=== PATIENT | female | born 1965 | race Caucasian/White ===

== ENCOUNTER → 2017-02-13 | Outpatient (CLI) | payer OTHER ==
[~2017-02-13] MED LIST: ACHD5005 PO; AMIT150T3 PO; ASP81TEC PO; ASPI325T4 PO; ATEN25TA PO; AZIT-21 PO; BESI5DRO OP; BSP5T PO; CEPH500C PO; CPR500T PO; CYCL10TA9 PO; DIAZ10TA PO; FENO145T2 PO; FENO160T3; HCTZ12.5T PO; HYDR-3812 PO; IBUP-1773 PO; MELO-198 PO; METF500T4 PO; MTF500T PO; NAPR-243 PO; NCT14P TOP; NCT21TD TOP; NIA500ERT PO; OMEP-10 GT; OTC DIURETIC PO; PRCD5U PO; PRD20T PO; SULF1TAB38 PO; TOPI100T2 PO; TRM50T PO
--- NOTE | 2017-02-13 16:34 | Diagnostic Imaging Report ---
PROCEDURE: MRI right joint lower extremity without contrast. TECHNIQUE: Multiplanar, multisequence non contrast-enhanced MRI of the right lower extremity was accomplished. INDICATION: Right hip pain. FINDINGS: In the anteromedial aspect of the acetabulum, there are subchondral cysts seen which could be degenerative or perhaps post-traumatic intraosseous ganglion cysts. There is no osteochondral lesion identified. No focal cartilage defects or significant cartilage thinning identified, however. There is no significant bone marrow edema or evidence of fracture about the right hip. No stress fracture. No evidence of avascular necrosis. No obvious labrum abnormality is seen on this study without intra-articular contrast. There is a normal appearance of the iliopsoas tendon, the gluteus muscles and tendons, and the origin of the hamstring muscles. No iliopsoas or greater trochanteric bursitis. The signal and bulk in the muscles around the right hip are normal. IMPRESSION: Subchondral cysts along the anteromedial aspect of the acetabulum are probably degenerative or from old injury. No significant cartilage thinning or other manifestations of osteoarthritis. No acute process. Dictated by: Dictated on workstation # [id number]
== END ==
LOC: RAD 14:57
PROVIDERS: ATTEND Orthopaedic Surgery Orthopaedic Surgery of the Spine
DX: M25.551 Pain in right hip (principal)
CPT/HCPCS: 73721

== ENCOUNTER 2017-03-17 08:49 | Emergency (ER) | payer OTHER ==
[~2017-03-17] VITALS: Ht 149.9 cm; Wt 89.8 kg
[~2017-03-17 08:49] MED LIST changes: -HYDR-3812 PO; -METF500T4 PO; -PRD20T PO
[2017-03-17] MEDS ORDERED: METF500T4 PO (09:04)
--- NOTE | 2017-03-17 09:21 | ED Back Pain ---
General Chief Complaint: Back Problems Stated Complaint: BACK PAIN RIGHT LEG BURNING/TOES NUMB Nursing Triage Note: PT CO OF BACK PAIN, STATES HAS SICATICA IN R LOWER BACK AND R LEG, PT STATES HAS NUMBNESS IN TOES BILATERALLY. DIFF KEEPING BALANCE, SCHEDULED FOR INJECTION ON MONDAY BUT CANT WORK THIS WAY Nursing Sepsis Screen: No Definite Risk Source of Information: Patient Exam Limitations: No Limitations History of Present Illness Time Seen by Provider: 09:01 Initial Comments Here with report of right low back pain that radiates down her right leg. She does have a history of sciatica. She is scheduled to get injection next week. She is having difficulty with pain and she is walking a lot at work which is exacerbating the problem. Denies numbness between her legs, bowel or bladder incontinence or weakness. Seen yesterday and started on ibuprofen at outside facility. Location: Lumbar Spine Timing/Duration: 1-2 Days Severity: Moderate Radiation: Buttocks, Feet, Lower Legs, Upper Legs Method of Injury: Unknown Modifying Factors: Worse With Movement, Improves With Rest Associated Symptoms: muscle spasms, No weakness, No numbness in legs/feet, tingling in legs/feet, No sensory/motor loss, lower back pain, No loss of bladder control, No loss of bowel control Allergies and Home Medications Allergies Coded Allergies: niacin (Verified Allergy, Mild, rash, 03/17/17) Home Medications Cyclobenzaprine HCl 10 Mg Tablet, 10 MG PO Q8H PRN for SPASMS, #15 Ref 0 Prescribed by: BRISEIDA ELLIOTT on 03/17/17941 Hydrochlorothiazide 12.5 Mg Cap, 25 MG PO, (Reported) Hydrocodone/Acetaminophen 1 Each Tablet, 1-2 EACH PO Q6H PRN for pain, #15 Ref 0 Prescribed by: BRISEIDA ELLIOTT on 03/17/17941 Metformin HCl 500 Mg Tablet, 500 MG PO BID, (Reported) Omeprazole 20 Mg Capsule.dr, 20 MG GT DAILY, (Reported) Prednisone 20 Mg Tab, 40 MG PO DAILY, #10 Ref 0 Prescribed by: BRISEIDA ELLIOTT on 03/17/17941 Constitutional: see HPI, No chills, No fever Respiratory: no symptoms reported Cardiovascular: no symptoms reported Gastrointestinal: no symptoms reported Genitourinary: no symptoms reported Musculoskeletal: see HPI, back pain, muscle pain All Other Systems Reviewed Negative Unless Noted: Yes Past Wpyblhs-Dxavok-Crzqof Hx Patient Social History Alcohol Use: Denies Use Recreational Drug Use: No Smoking Status: Former Smoker Type Used: Electronic/Vapor Recent Foreign Travel: No Contact w/Someone Who Travel: No Recent Infectious Disease Expo: No Recent Hopitalizations: No Immunizations Up To Date Tetanus Booster (TDap): Unknown Date of Influenza Vaccine: Dec 28, 2012 Surgeries HX Surgeries: Yes (CARPAL TUNNEL) Surgeries: Section, Hysterectomy Respiratory Hx Respiratory Disorders: Yes Respiratory Disorders: Pneumonia Cardiovascular Hx Cardiac Disorders: Yes Neurological Hx Neurological Disorders: No Reproductive System Hx Reproductive Disorders: No 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: 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 Genitourinary Hx Genitourinary Disorders: No Gastrointestinal Hx Gastrointestinal Disorders: No Musculoskeletal Hx Musculoskeletal Disorders: Yes Musculoskeletal Disorders: Degenerate Disk Disease, Arthritis, Fibromyalgia, Chronic Back Pain Endocrine Hx Endocrine Disorders: No HEENT HX ENT Disorders: No Cancer Hx Cancer: No Psychosocial Hx Psychiatric Problems: Yes Behavioral Health Disorders: Anxiety Blood Transfusions Hx Blood Disorders: No Reviewed Nursing Assessment Reviewed/Agree w Nursing PMH: Yes Family Medical History Significant Family History: No Pertinent Family Hx Physical Exam Vital Signs Vital Sign - Last 12Hours 03/17/17 08:55 Temp 97.0 Pulse 68 Resp 20 B/P (MAP) 140/96 Pulse Ox 98 O2 Delivery Room Air Capillary Refill : Less Than 3 Seconds General Appearance: No Apparent Distress, WD/WN Cardiovascular: Regular Rate, Rhythm, No Murmur Respiratory: Lungs Clear, Normal Breath Sounds Back: No CVA Tenderness, No Vertebral Tenderness, Muscle Spasm, Other (right low back tenderness that radiates over the buttock) Extremity: Normal Range of Motion, Non Tender Neurologic/Psychiatric: Alert, Oriented x3 Skin: Normal Color, Warm/Dry Progress/Results/Core Measures Results/Orders Lab Results Laboratory Tests Test 03/17/17 09:20 Range/Units Glucometer 101 70-110 MG/DL My Orders Orders - BRISEIDA ELLIOTT MD Accucheck Stat ONCE (03/17/17 09:15) Vital Signs/I&O Vital Sign - Last 12Hours 03/17/17 08:55 Temp 97.0 Pulse 68 Resp 20 B/P (MAP) 140/96 Pulse Ox 98 O2 Delivery Room Air Blood Pressure Mean: 111 Progress Note : Progress Note Seen and evaluated. Discharged home with return precautions. Patient verbalize understanding instructions and agreement with plan. Departure Impression Impression: Primary Impression: Lumbar radiculopathy Disposition: 01 HOME, SELF-CARE Condition: Improved Departure-Patient Inst. Decision time for Depature: 09:26 Referrals: JAMAL HENDRICKSON DO (PCP/Family) Primary Care Physician Patient Instructions: Radiculopathy (DC) Add. Discharge Instructions: All discharge instructions reviewed with patient and/or family. Voiced understanding. Continue home medications as prescribed. Follow-up with your doctor next week as scheduled. Take medications as directed. Return for worse pain, fever, vomiting, weakness, breathing problems or other concerns as needed. Scripts Prednisone (Prednisone) 20 Mg Tab 40 MG PO DAILY, #10 TAB 0 Refills Prov: BRISEIDA ELLIOTT MD 03/17/17 Hydrocodone/Acetaminophen (Hydrocodon -Acetaminophen 5-325) 1 Each Tablet 1-2 EACH PO Q6H Y for pain, #15 TAB 0 Refills Prov: BRISEIDA ELLIOTT MD 03/17/17 Cyclobenzaprine HCl (Cyclobenzaprine HCl) 10 Mg Tablet 10 MG PO Q8H Y for SPASMS, #15 TAB 0 Refills Prov: BRISEIDA ELLIOTT MD 03/17/17 Work/School Note: Work Release Form Date Seen in the Emergency Department: Mar 17, 2017 Return to Work: Mar 20, 2017 Restrictions: No Restrictions BRISEIDA ELLIOTT MD Mar 17, 2017 09:21
[2017-03-17] MEDS ORDERED: HYDR-3812 PO (09:42)
[2017-03-17] MEDS ORDERED: CYCL10TA9 PO (09:42)
[2017-03-17] MEDS ORDERED: PRD20T PO (09:42)
[2017-03-17 09:49] VITALS: BP 140/96
== END 2017-03-17 09:49 | disposition home or self-care (01) ==
LOC: EDUNIT# 08:49 → ER 08:52
DX: M54.16 Radiculopathy, lumbar region (principal); E11.9 Type 2 diabetes mellitus without complications; Z79.84 Long term (current) use of oral hypoglycemic drugs
CPT/HCPCS: 82962; 99282

== ENCOUNTER 2017-04-19 15:44 | Emergency (ER) | payer OTHER ==
[~2017-04-19] VITALS: Ht 152.4 cm; Wt 90.9 kg
[~2017-04-19 15:44] MED LIST changes: +HYDR-3812 PO; +METF500T4 PO; +PRD20T PO
[2017-04-19] MEDS ORDERED: CINN500C2 PO (15:54)
[2017-04-19] MEDS ORDERED: ASCO500C15 PO (15:54)
[2017-04-19] MEDS ORDERED: ASPI-808 PO (15:54)
[2017-04-19 16:15] LABS: BASOPHILS # (AUTO) 0.1 10^3/uL (0.0-0.1); BASOPHILS % (AUTO) 0 % (0-10); EOSINOPHILS # (AUTO) 0.1 10^3/uL (0.0-0.3); EOSINOPHILS % (AUTO) 1 % (0-10); LYMPHOCYTES # (AUTO) 3.2 X 10^3 (1.0-4.0); LYMPHOCYTES % (AUTO) 23 % (12-44); MEAN CORPUSCULAR HEMOGLOBIN 26 PG (25-34); MEAN CORPUSCULAR HGB CONC 32 G/DL (32-36); MEAN CORPUSCULAR VOLUME 79 FL (80-99); MEAN PLATELET VOLUME 10.4 FL (7.4-10.4); MONOCYTES % (AUTO) 7 % (0-12); NEUTROPHILS # (AUTO) 9.5 X 10^3 (1.8-7.8); NEUTROPHILS % (AUTO) 69 % (42-75); PLATELET COUNT 312 10^3/uL (130-400); RED BLOOD COUNT 6.12 10^6/uL (4.35-5.85); RED CELL DISTRIBUTION WIDTH 17.2 % (10.0-14.5); WHITE BLOOD COUNT 13.8 10^3/uL (4.3-11.0)
[2017-04-19 16:19] LABS: PROTHROMBIN TIME PATIENT 13.3 SEC (12.2-14.7)
[2017-04-19 16:26] LABS: ALANINE AMINOTRANSFERASE 21 U/L (0-55); ALBUMIN 3.2 G/DL (3.2-4.5); ANION GAP 8 MMOL/L (5-14); ASPARTATE AMINO TRANSFERASE 15 U/L (5-34); BILIRUBIN,TOTAL 0.3 MG/DL (0.1-1.0); BLOOD UREA NITROGEN 20 MG/DL (7-18); BUN/CREATININE RATIO 25; CALCIUM 9.2 MG/DL (8.5-10.1); CARBON DIOXIDE 26 MMOL/L (21-32); CHLORIDE 108 MMOL/L (98-107); CREATININE SERUM 0.79 MG/DL (0.60-1.30); GFR ESTIMATED > 60; GLUCOSE 160 MG/DL (70-105); MAGNESIUM 1.7 MG/DL (1.8-2.4); POTASSIUM 3.7 MMOL/L (3.6-5.0); SODIUM 142 MMOL/L (135-145); TOTAL PROTEIN 5.3 G/DL (6.4-8.2)
--- NOTE | 2017-04-19 16:28 | Diagnostic Imaging Report ---
INDICATION: Chest tightness and dizziness. EXAMINATION: Single frontal view of the chest was obtained at 4:13 p.m. FINDINGS: Heart and mediastinal silhouette are normal in appearance. The lungs are clear. There is no pneumothorax or pleural fluid. IMPRESSION: Negative chest. Dictated by: Dictated on workstation # [id number]
[2017-04-19 16:32] LABS: MYOGLOBIN SERUM 31.4 NG/ML (10.0-92.0)
--- NOTE | 2017-04-19 16:48 | ED Chest Pain ---
General Chief Complaint: Chest Pain Stated Complaint: CHEST PAIN,SOB Nursing Triage Note: patient reports chest tightness starting this morning after donating plasma, patient reports is also dizzy. denies SOA, N/V Nursing Sepsis Screen: No Definite Risk Source: patient Exam Limitations: no limitations History of Present Illness Time seen by provider: 16:40 Initial Comments Here with report of chest tightness that started about noon today. Onset after donating plasma today. Complains of tightness but denies nausea, vomiting, fever or chills. She has had cardiac workup in the past that was negative. She does report being under life stress. She does take a baby aspirin daily. Timing/Duration: 4-6 hours Severity/Quality: moderate, tightness Location: central Radiation: no radiation Prior CP/Workup: cardiac cath, echocardiography, stress test ASA po BENEFITS DIRECTOR: Yes NTG SL BENEFITS DIRECTOR: No Associated Symptoms: No abdominal pain, No back pain, No diaphoresis, No nausea /vomiting, No shortness of breath, No weakness Allergies and Home Medications Allergies Coded Allergies: niacin (Verified Allergy, Mild, rash, 03/17/17) Home Medications Ascorbic Acid 500 Mg Capsule.er, 500 MG PO, (Reported) Aspirin 325 Mg Tablet, 325 MG PO, (Reported) Cinnamon Bark 500 Mg Capsule, 500 MG PO, (Reported) Cyclobenzaprine HCl 10 Mg Tablet, 10 MG PO Q8H PRN for SPASMS, #15 Ref 0 Prescribed by: BRISEIDA ELLIOTT on 03/17/17941 Hydrochlorothiazide 12.5 Mg Cap, 25 MG PO, (Reported) Hydrocodone/Acetaminophen 1 Each Tablet, 1-2 EACH PO Q6H PRN for pain, #15 Ref 0 Prescribed by: BRISEIDA ELLIOTT on 03/17/17941 Metformin HCl 500 Mg Tablet, 500 MG PO BID, (Reported) Omeprazole 20 Mg Capsule.dr, 20 MG GT DAILY, (Reported) Prednisone 20 Mg Tab, 40 MG PO DAILY, #10 Ref 0 Prescribed by: BRISEIDA ELLIOTT on 03/17/17941 Review of Systems Constitutional: see HPI, No chills, No fever EENTM: No Symptoms Reported Respiratory: No Symptoms Reported, Denies Shortness of Air, Denies SOA at Rest Cardiovascular: Chest Pain, Denies Edema, Denies Lightheadedness Gastrointestinal: No Symptoms Reported, Denies Nausea, Denies Vomiting Genitourinary: No Symptoms Reported Musculoskeletal: no symptoms reported All Other Systems Reviewed Negative Unless Noted: Yes Past Rzwxjix-Jvgtei-Rdudtt Hx Patient Social History Alcohol Use: Denies Use Recreational Drug Use: No Smoking Status: Current Everyday Smoker Type Used: Cigarettes Recent Foreign Travel: No Contact w/Someone Who Travel: No Recent Infectious Disease Expo: No Recent Hopitalizations: No Immunizations Up To Date Tetanus Booster (TDap): Unknown Date of Influenza Vaccine: Dec 28, 2012 Surgeries HX Surgeries: Yes (CARPAL TUNNEL) Surgeries: Section, Hysterectomy, Orthopedic Respiratory Hx Respiratory Disorders: Yes Respiratory Disorders: Pneumonia Cardiovascular Hx Cardiac Disorders: Yes Cardiac Disorders: High Cholesterol Neurological Hx Neurological Disorders: No Reproductive System Hx Reproductive Disorders: No 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 Genitourinary Hx Genitourinary Disorders: No Gastrointestinal Hx Gastrointestinal Disorders: No Musculoskeletal Hx Musculoskeletal Disorders: Yes Musculoskeletal Disorders: Degenerate Disk Disease, Arthritis, Fibromyalgia, Chronic Back Pain Endocrine Hx Endocrine Disorders: No HEENT HX ENT Disorders: No Cancer Hx Cancer: No Psychosocial Hx Psychiatric Problems: Yes Behavioral Health Disorders: Anxiety Blood Transfusions Hx Blood Disorders: No Reviewed Nursing Assessment Reviewed/Agree w Nursing PMH: Yes Family Medical History Significant Family History: No Pertinent Family Hx Physical Exam Vital Signs Vital Sign - Last 12Hours Capillary Refill : Less Than 3 Seconds General Appearance: No Apparent Distress, WD/WN HEENT: PERRL/EOMI, Pharynx Normal Neck: Non Tender, Supple Respiratory: Lungs Clear, Normal Breath Sounds, Other (tender along the anterior chest wall reproducible with palpation.) Cardiovascular: Regular Rate, Rhythm, No Murmur Gastrointestinal: Non Tender, Soft Extremity: Normal Range of Motion, Non Tender Neurologic/Psychiatric: Alert, Oriented x3 Skin: Normal Color, Warm/Dry Progress/Results/Core Measures Results/Orders Lab Results Laboratory Tests Test 04/19/ 16:00 Range/Units White Blood Count 13.8 H 4.3-11.0 10^3/uL Red Blood Count 6.12 H 4.35-5.85 10^6/uL Hemoglobin 15.6 11.5-16.0 G/DL Hematocrit 48 35-52 % Mean Corpuscular Volume 79 L 80-99 FL Mean Corpuscular Hemoglobin 26 25-34 PG Mean Corpuscular Hemoglobin Concent 32 32-36 G/DL Red Cell Distribution Width 17.2 H 10.0-14.5 % Platelet Count 312 130-400 10^3/uL Mean Platelet Volume 10.4 7.4-10.4 FL Neutrophils (%) (Auto) 69 42-75 % Lymphocytes (%) (Auto) 23 12-44 % Monocytes (%) (Auto) 7 0-12 % Eosinophils (%) (Auto) 1 0-10 % Basophils (%) (Auto) 0 0-10 % Neutrophils # (Auto) 9.5 H 1.8-7.8 X 10^3 Lymphocytes # (Auto) 3.2 1.0-4.0 X 10^3 Monocytes # (Auto) 1.0 0.0-1.0 X 10^3 Eosinophils # (Auto) 0.1 0.0-0.3 10^3/uL Basophils # (Auto) 0.1 0.0-0.1 10^3/uL Prothrombin Time 13.3 12.2-14.7 SEC INR Comment 1.0 0.8-1.4 Activated Partial Thromboplast Time 25 24-35 SEC D-Dimer < 0.27 0.00-0.49 UG/ML Sodium Level 142 135-145 MMOL/L Potassium Level 3.7 3.6-5.0 MMOL/L Chloride Level 108 H 98-107 MMOL/L Carbon Dioxide Level 26 21-32 MMOL/L Anion Gap 8 5-14 MMOL/L Blood Urea Nitrogen 20 H 7-18 MG/DL Creatinine 0.79 0.60-1.30 MG/DL Estimat Glomerular Filtration Rate > 60 BUN/Creatinine Ratio 25 Glucose Level 160 H 70-105 MG/DL Calcium Level 9.2 8.5-10.1 MG/DL Magnesium Level 1.7 L 1.8-2.4 MG/DL Total Bilirubin 0.3 0.1-1.0 MG/DL Aspartate Amino Transf (AST/SGOT) 15 5-34 U/L Alanine Aminotransferase (ALT/SGPT) 21 0-55 U/L Alkaline Phosphatase 67 40-136 U/L Myoglobin 31.4 10.0-92.0 NG/ML Troponin I < 0.30 <0.30 NG/ML Total Protein 5.3 L 6.4-8.2 G/DL Albumin 3.2 3.2-4.5 G/DL My Orders Orders - [facility],BRISEIDA D MD Cbc With Automated Diff (04/19/17 16:01) Magnesium (04/19/17 16:01) Chest 1 View, Ap/Pa Only (04/19/17 16:01) Ekg Tracing (04/19/17 16:01) Cardiac Profile 1 (04/19/17 16:01) Comprehensive Metabolic Panel (04/19/17 16:01) Myoglobin Serum (04/19/17 16:01) Protime With Inr (04/19/17 16:01) Partial Thromboplastin Time (04/19/17 16:01) O2 (04/19/17 16:01) Monitor-Rhythm Ecg Trace Only (04/19/17 16:01) Lipid Panel (04/20/17 06:00) Saline Lock/Iv-Start (04/19/17 16:01) Fibrin Degradation Products (04/19/17 16:01) Aspirin Chewable Tablet (Baby Aspirin Ch (04/19/17 16:49) Ketorolac Injection (Toradol Injection) (04/19/17 16:49) Vital Signs/I&O Vital Sign - Last 12Hours 04/19/17 04/19/17 04/19/17 15:48 15:48 15:48 Temp 98.2 Pulse 89 Resp 18 B/P (MAP) 122/83 Pulse Ox 95 O2 Delivery Room Air Room Air Blood Pressure Mean: 96 Progress Note : Progress Note Seen and evaluated. IV, labs, EKG and chest x-ray ordered. No acute findings and d-dimer negative. ASA 324 mg by mouth given. Toradol 30 mg IV ordered for reproducible anterior chest wall pain. Monitor patient. 1725: Overall improved. She will follow-up with her doctor in the heart doctor. Discharged home with return precautions. Patient verbalize understanding instructions and agreement with plan. ECG Initial ECG Impression Date: April 19, 2017 Initial ECG Impression Time: 15:50 Initial ECG Rate: 89 Initial ECG Rhythm: Normal Sinus Comment Sinus rhythm with normal axis. No evidence of ST elevation SC. Patient was wondering baseline but overall similar morphology to previous of 01/19/15. Interpreted by me. Diagnostic Imaging Diagonstic Imaging: Xray Plain Films/CT/US/NM/MRI: chest Comments [facility] [place], [place] NAME: JJ REYNA [facility] REC#: [id number] PT STATUS: REG ER : 1965 PHYSICIAN: BRISEIDA ELLIOTT MD ADMIT DATE: 04/19/17/ER Draft Date of Exam:04/19/17 CHEST 1 VIEW, AP/PA ONLY INDICATION: Chest tightness and dizziness. EXAMINATION: Single frontal view of the chest was obtained at 4:13 p.m. FINDINGS: Heart and mediastinal silhouette are normal in appearance. The lungs are clear. There is no pneumothorax or pleural fluid. IMPRESSION: Negative chest. Dictated on workstation # [id number] Dict: 04/19/17 1624 Trans: 04/19/171626 [facility] [id number] Interpreted by: MOOSE CARDENAS MD Electronically signed by: Departure Impression Impression: Primary Impression: Chest pain Qualified Codes: R07.9 - Chest pain, unspecified Disposition: 01 HOME, SELF-CARE Condition: Improved Departure-Patient Inst. Referrals: JAMAL HENDRICKSON DO (PCP/Family) Primary Care Physician KAHLIL MUÑOZ MD [facility] Patient Instructions: Chest Pain (DC) Add. Discharge Instructions: All discharge instructions reviewed with patient and/or family. Voiced understanding. Continue home medications as prescribed and continue daily aspirin. Follow-up with your doctor this week for recheck and further evaluation. Follow-up with a heart doctor within one week for recheck and further evaluation. Return for worse pain, fever, vomiting, weakness, breathing problems or other concerns as needed. Copy Copies To 1: JAMAL HENDRICKSON DO Copies To 2: KAHLIL MUÑOZ MD [facility] BRISEIDA ELLIOTT MD April 19, 2017 16:47
[2017-04-19] MEDS ORDERED: ASPIRIN 81 MG CHEW (CHILDREN'S ASA) PO STA (16:49)
[2017-04-19] MEDS ORDERED: KETOROLAC 30 MG/ML VIAL IVP STA (16:49)
[2017-04-19 17:29] VITALS: BP 124/78
== END 2017-04-19 17:30 | disposition home or self-care (01) ==
LOC: EDUNIT# 15:44 → ER 15:46
DX: R07.9 Chest pain, unspecified (principal); E11.9 Type 2 diabetes mellitus without complications; F17.210 Nicotine dependence, cigarettes, uncomplicated; Z79.84 Long term (current) use of oral hypoglycemic drugs; Z79.899 Other long term (current) drug therapy; Z79.82 Long term (current) use of aspirin
CPT/HCPCS: 36415; 71010; 80053; 83735; 83874; 84484; 85025; 85379; 85610; 85730; 93005; 93041

== ENCOUNTER 2017-11-26 17:56 | Emergency (ER) | payer OTHER ==
[~2017-11-26] VITALS: Ht 149.9 cm; Wt 89.8 kg
[~2017-11-26 17:56] MED LIST changes: +ASCO500C15 PO; +ASPI-808 PO; +CINN500C2 PO; -HYDR-3812 PO
--- OUTSIDE RECORDS SUMMARY | 2017-11-26 18:01 | XMS REPORT ---
Author Author LOW TEMPLE Organization [facility] Address [address] [place] [address] Care Team Providers Care Brush Worker Name Role Phone MAVERICK LOW Unavailable PROBLEMS Type Condition ICD9-CM Code [id number] Code Onset Dates Condition Status SNOMED Code Problem Lumbago with sciatica, right side M54.41 Active 506689066 Problem Morbid obesity due to excess calories E66.01 Active 673972262 Problem Mood disorder F39 Active 65495109 Problem Diabetes E11.9 Active 172743179 ALLERGIES Substance Reaction Event Type Date Status Niacin Unknown Drug Allergy Oct, Active SOCIAL HISTORY No smoking Hx information available PLAN OF CARE Activity Details Follow Up 4 Weeks Reason:mood disorder VITAL SIGNS Height 59 in 2016-11-14 Weight 205.3 lbs 2016-11-14 Temperature 97.8 degrees Fahrenheit 2016-11-14 Heart Rate 80 bpm 2016-11-14 Respiratory Rate 18 2016-11-14 BMI 41.46 kg/m2 2016-11-14 Blood pressure systolic 112 mmHg 2016-11-14 Blood pressure diastolic 72 mmHg 2016-11-14 MEDICATIONS Medication Instructions Dosage Frequency Start Date End Date Duration Status Metformin HCl 500 MG TAKE ONE TABLET BY MOUTH TWICE DAILY WITH MEALS 30 Active Aspirin 81 MG Orally Once a day 1 tablet 24h Active Venlafaxine HCl 37.5 MG Orally Twice a day 1 tablet with food 12h Oct, 30 day(s) Active Hydrochlorothiazide 25 MG TAKE ONE TABLET BY MOUTH ONCE DAILY 30 Active Omeprazole 20 MG TAKE ONE CAPSULE BY MOUTH ONCE DAILY BEFORE A MEAL 30 Active Tramadol HCl 50 mg Orally every 6 hrs 1 tablet as needed 6h May, Active Cinnamon 500 MG Orally 4 times a day 1 capsule 6h Active RESULTS Name Result Date Reference Range MRI : Lumbar w/o contrast 2016-11-17 PROCEDURES Procedure Date Ordered Related Diagnosis Body Site Office Visit, Est Pt., Level 3 Nov 14, 2016 IMMUNIZATIONS No Known Immunizations
--- OUTSIDE RECORDS SUMMARY | 2017-11-26 18:01 | XMS REPORT ---
Author Author LOW TEMPLE [facility] Address [address] [place] [address] Care Team Providers Care Care Clinician Name Role Phone LOW TEMPLE Unavailable PROBLEMS Type Condition ICD9-CM Code [id number] Code Onset Dates Condition Status SNOMED Code Problem Lumbago with sciatica, right side M54.41 Active 798523651 Problem Mood disorder F39 Active 99016623 Problem Morbid obesity due to excess calories E66.01 Active 931138597 Problem Diabetes E11.9 Active 060005722 ALLERGIES Unknown Allergies SOCIAL HISTORY No smoking Hx information available PLAN OF CARE VITAL SIGNS MEDICATIONS Unknown Medications RESULTS No Results PROCEDURES No Known procedures IMMUNIZATIONS No Known Immunizations
--- OUTSIDE RECORDS SUMMARY | 2017-11-26 18:01 | XMS REPORT ---
Author Author LOW TEMPLE [facility] Address [address] [place] [address] Care Team Providers Care Apprentice Electrician Name Role Phone LOW TEMPLE Unavailable PROBLEMS Type Condition ICD9-CM Code [id number] Code Onset Dates Condition Status SNOMED Code Problem Lumbago with sciatica, right side M54.41 Active 103997901 Problem Mood disorder F39 Active 08991519 Problem Morbid obesity due to excess calories E66.01 Active 575619353 Problem Diabetes E11.9 Active 311597022 ALLERGIES Unknown Allergies SOCIAL HISTORY No smoking Hx information available PLAN OF CARE VITAL SIGNS MEDICATIONS Unknown Medications RESULTS No Results PROCEDURES No Known procedures IMMUNIZATIONS No Known Immunizations
--- OUTSIDE RECORDS SUMMARY | 2017-11-26 18:01 | XMS REPORT ---
Author Author LOW TEMPLE [facility] Address [address] [place] [address] Care Team Providers Care Psychologist Developmental Name Role Phone MAVERICK LOW Unavailable PROBLEMS Type Condition ICD9-CM Code [id number] Code Onset Dates Condition Status SNOMED Code Problem Lumbago with sciatica, right side M54.41 Active 443218137 Problem Morbid obesity due to excess calories E66.01 Active 822069430 Problem Mood disorder F39 Active 82826825 Problem Diabetes E11.9 Active 724844472 ALLERGIES Unknown Allergies SOCIAL HISTORY No smoking Hx information available PLAN OF CARE VITAL SIGNS MEDICATIONS Unknown Medications RESULTS Name Result Date Reference Range TSH 2016-11-16 TSH 1.160 0.450-4.500 CBC 2016-11-16 WBC 7.4 3.4-10.8 RBC 5.52 3.77-5.28 Hemoglobin 14.2 11.1-15.9 Hematocrit 43.8 34.0-46.6 MCV 79 79-97 MCH 25.7 26.6-33.0 MCHC 32.4 31.5-35.7 RDW 14.2 12.3-15.4 Platelets 292 150-379 Neutrophils 62 Lymphs 31 Monocytes 6 Eos 1 Basos 0 Neutrophils (Absolute) 4.5 1.4-7.0 Lymphs (Absolute) 2.3 0.7-3.1 Monocytes(Absolute) 0.5 0.1-0.9 Eos (Absolute) 0.1 0.0-0.4 Baso (Absolute) 0.0 0.0-0.2 Immature Granulocytes 0 Immature Grans (Abs) 0.0 0.0-0.1 LIPID PANEL 2016-11-16 Cholesterol, Total 233 100-199 Triglycerides 192 0-149 HDL Cholesterol 42 >39 VLDL Cholesterol Francis 38 5-40 LDL Cholesterol Calc 153 0-99 Comment: CMP 2016-11-16 Glucose, Serum 102 65-99 BUN 17 6-24 Creatinine, Serum 0.75 0.57-1.00 eGFR If NonAfricn Am 91 >59 eGFR If Africn Am 105 >59 BUN/Creatinine Ratio 23 9-23 Sodium, Serum 143 134-144 Potassium, Serum 4.8 3.5-5.2 Chloride, Serum 101 96-106 Carbon Dioxide, Total 26 18-29 Calcium, Serum 9.3 8.7-10.2 Protein, Total, Serum 6.7 6.0-8.5 Albumin, Serum 4.2 3.5-5.5 Globulin, Total 2.5 1.5-4.5 A/G Ratio 1.7 1.1-2.5 Bilirubin, Total 0.5 0.0-1.2 Alkaline Phosphatase, S 94 39-117 AST (SGOT) 18 0-40 ALT (SGPT) 21 0-32 PROCEDURES Procedure Date Ordered Related Diagnosis Body Site ASSAY THYROID STIM HORMONE Nov 16, 2016 COMPLETE CBC W/AUTO DIFF WBC Nov 16, 2016 COMPREHEN METABOLIC PANEL Nov 16, 2016 LIPID PANEL Nov 16, 2016 VENIPUNCT, ROUTINE* Nov 16, 2016 IMMUNIZATIONS No Known Immunizations
--- OUTSIDE RECORDS SUMMARY | 2017-11-26 18:01 | XMS REPORT ---
Author Author LOW TEMPLE Organization [facility] Address [address] [place] [address] Care Team Providers Care Ed Special Education Teacher Name Role Phone LOW TEMPLE Unavailable PROBLEMS Type Condition ICD9-CM Code [id number] Code Onset Dates Condition Status SNOMED Code Problem Lumbago with sciatica, right side M54.41 Active 333447315 Problem Mood disorder F39 Active 91356736 Problem Morbid obesity due to excess calories E66.01 Active 082914810 Problem Diabetes E11.9 Active 106138166 ALLERGIES No Information SOCIAL HISTORY Never Assessed PLAN OF CARE VITAL SIGNS MEDICATIONS Unknown Medications RESULTS No Results PROCEDURES No Known procedures IMMUNIZATIONS No Known Immunizations MEDICAL (GENERAL) HISTORY Type Description Date Medical History cardiovascular disorder-sees Dr. Farrell Medical History hyperlipidemia Medical History obesity Medical History type II diabetes Medical History elevated liver enzymes Medical History Dx with SVT Medical History Arthritis-hands and fingers Surgical History heart cath 01/212 Surgical History arthroscopy of the right knee Surgical History section x 3 Surgical History hysterectomy Surgical History neuroplasty with transposition of median nerve at carpal tunnel, right hand Hospitalization History [facility] chest pain 10/2010 Hospitalization History [facility] for chest pain 01/2012
--- NOTE | 2017-11-26 19:11 | ED Cough/URI ---
General Chief Complaint: Cough/Cold/Flu Symptoms Stated Complaint: COLD/FLU SYMPTOMS Source: patient Exam Limitations: no limitations History of Present Illness Time seen by provider: 19:10 Initial Comments To ER with reports of a four-day history non-productive cough, body aches, chills, sore throat Timing/Duration: week Severity/Quality: moderate Associated Symptoms: cough, shortness of breath Allergies and Home Medications Allergies Coded Allergies: niacin (Verified Allergy, Mild, rash, 03/17/17) Home Medications Ascorbic Acid 500 Mg Capsule.er, 500 MG PO, (Reported) Aspirin 325 Mg Tablet, 325 MG PO, (Reported) Cinnamon Bark 500 Mg Capsule, 500 MG PO, (Reported) Cyclobenzaprine HCl 10 Mg Tablet, 10 MG PO Q8H PRN for SPASMS, #15 Ref 0 Prescribed by: BRISEIDA ELLIOTT on 03/17/17 0942 Hydrochlorothiazide 12.5 Mg Cap, 25 MG PO, (Reported) Hydrocodone Bit/Acetaminophen 1 Each Tablet, 1-2 EACH PO Q6H PRN for pain, #15 Ref 0 Prescribed by: BRISEIDA ELLIOTT on 03/17/17 0942 Metformin HCl 500 Mg Tablet, 500 MG PO BID, (Reported) Omeprazole 20 Mg Capsule.dr, 20 MG GT DAILY, (Reported) Prednisone 20 Mg Tab, 40 MG PO DAILY, #10 Ref 0 Prescribed by: BRISEIDA ELLIOTT on 03/17/17 0942 Constitutional: see HPI EENTM: see HPI Respiratory: see HPI, cough Cardiovascular: no symptoms reported Genitourinary: no symptoms reported Musculoskeletal: no symptoms reported Skin: no symptoms reported Psychiatric/Neurological: No Symptoms Reported Past [id number]-[id number] Hx Patient Social History Alcohol Use: Denies Use Recreational Drug Use: No Smoking Status: Current Everyday Smoker Type Used: Cigarettes Recent Foreign Travel: No Contact w/Someone Who Travel: No Recent Hopitalizations: No Physical Abuse: No Sexual Abuse: No Mistreated: No Fear: No Immunizations Up To Date Tetanus Booster (TDap): Unknown Date of Influenza Vaccine: Dec 28, 2012 Surgeries History of Surgeries: Yes (R CARPAL TUNNEL, L knee) Surgeries: Section, Hysterectomy, Orthopedic Respiratory History of Respiratory Disorde: Yes Respiratory Disorders: Pneumonia Cardiovascular History of Cardiac Disorders: Yes Cardiac Disorders: High Cholesterol Neurological History of Neurological Disord: No Reproductive System Hx Reproductive Disorders: No 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 Genitourinary History of Genitourinary Disor: No Gastrointestinal History of Gastrointestinal Di: No Musculoskeletal History of Musculoskeletal Dis: Yes Musculoskeletal Disorders: Degenerate Disk Disease, Arthritis, Fibromyalgia, Chronic Back Pain Endocrine History of Endocrine Disorders: No Cancer History of Cancer: No Psychosocial History of Psychiatric Problem: Yes Behavioral Health Disorders: Anxiety Suicide Risk Score: 0 Blood Transfusions History of Blood Disorders: No Family Medical History Significant Family History: No Pertinent Family Hx Physical Exam Vital Signs Vital Sign - Last 12Hours 11/26/17 19:03 Temp 99.9 Pulse 81 Resp 20 B/P (MAP) 170/78 (108) Pulse Ox 95 O2 Delivery Room Air Capillary Refill : General Appearance: WD/WN, no apparent distress Eyes: Bilateral Eye Normal Inspection, Bilateral Eye PERRL, Bilateral Eye EOMI HEENT: PERRL/EOMI, normal ENT inspection Neck: non-tender, full range of motion Respiratory: normal breath sounds, no respiratory distress, no accessory muscle use Cardiovascular: regular rate, rhythm, no murmur Gastrointestinal: normal bowel sounds, non tender, soft Extremities: normal range of motion, non-tender Neurologic/Psychiatric: alert, normal mood/affect, oriented x 3 Skin: normal color, warm/dry Progress/Results/Core Measures Suspected Sepsis SIRS Temperature: Pulse: Respiratory Rate: Blood Pressure / Mean: Results/Orders My Orders Orders - COMPA HOLDEN APRN Chest Pa/Lat (2 View) (11/26/17 19:08) Influenza A And B Antigens (11/26/17 19:08) Vital Signs/I&O Vital Sign - Last 12Hours 11/26/17 19:03 Temp 99.9 Pulse 81 Resp 20 B/P (MAP) 170/78 (108) Pulse Ox 95 O2 Delivery Room Air Capillary Refill : Departure Impression Impression: Primary Impression: Viral syndrome Disposition: 01 HOME, SELF-CARE Condition: Stable Departure-Patient Inst. Decision time for Depature: 19:40 Referrals: [facility] (PCP/Family) Primary Care Physician Patient Instructions: VIRAL SYNDROME Add. Discharge Instructions: 1. Use Tylenol and Motrin for cough and body aches 2. DayQuil and NyQuil [id number] for cough and cold symptoms.. COMPA HOLDEN APRN Nov 26, 2017 19:10
--- NOTE | 2017-11-26 19:35 | Diagnostic Imaging Report ---
INDICATION: Cough, congestion onset two days ago. Worse today. COMPARISON: 04/19/2017. Frontal and lateral views of the chest demonstrate clear lungs bilaterally. The heart is normal. There is no pneumothorax. The osseous structures normal. IMPRESSION: Negative chest. Dictated by: Dictated on workstation # [id number]
[2017-11-26] MEDS ORDERED: RX-ALBUTEROL INHALER (PROAIR) 8 GM IH STA (20:01)
[2017-11-26] MEDS ORDERED: RT-ALBUTEROL/IPRATROPIUM 3 ML (DUONEB) VIAL INH ONE (20:15)
[2017-11-26 20:31] VITALS: BP 0/0
== END 2017-11-26 20:31 | disposition home or self-care (01) ==
LOC: EDUNIT# 17:56 → ER 17:57
DX: B34.9 Viral infection, unspecified (principal); E78.00 Pure hypercholesterolemia, unspecified; F41.9 Anxiety disorder, unspecified; F17.210 Nicotine dependence, cigarettes, uncomplicated; Z90.710 Acquired absence of both cervix and uterus; Z87.01 Personal history of pneumonia (recurrent); Z87.59 Personal history of other complications of pregnancy, childbirth and the puerperium; Z79.82 Long term (current) use of aspirin; Z79.84 Long term (current) use of oral hypoglycemic drugs
CPT/HCPCS: 71020; 87804; 94640; 94664; 99282

== ENCOUNTER → 2017-12-06 | Outpatient (CLI) | payer OTHER ==
--- NOTE | 2017-12-06 14:00 | Diagnostic Imaging Report ---
EXAMINATION: Ultrasound of the left breast. INDICATION: Left breast mass. FINDINGS: The diagnostic mammogram performed earlier today failed to show any sign of malignancy in the region of the patient's palpable mass in the 6 o'clock position of the breast. On this study, there is no discrete solid or cyst mass identified either. I suspect that the area in question may be secondary to fibroglandular tissue alone; however, if there is clinical concern regarding a palpable abnormality, then biopsy should still be considered. IMPRESSION: There is no evidence for malignancy. Clinical followup is recommended. ACR BI-RADS Category 1: Negative. Dictated by: Dictated on workstation # [id number]
--- NOTE | 2017-12-06 15:53 | Diagnostic Imaging Report ---
EXAMINATION: Bilateral diagnostic mammogram with CAD. INDICATION: Left breast lump. COMPARISON: This study is compared to the prior exams of 07/25/2013 and 07/09/2012. FINDINGS: At this time, the patient does complain of a lump in the 6 o'clock position of the left breast. A marker was placed over the area of concern. There is no primary or secondary sign of malignancy evident in this region. Even so, I would recommend that ultrasound be performed for further study. There are scattered fibroglandular densities in both breasts which could obscure a lesion. When compared to the previous study, there does not appear to have been any significant change. There is no primary or secondary sign malignancy noted. IMPRESSION: 1. There is no abnormality in the region of the patient's palpable lesion in the 6 o'clock position of the left breast. Ultrasound would be recommended for further study. 2. There is no other evidence for malignancy involving either breast. ACR BI-RADS Category 0: Incomplete. (Needs additional imaging evaluation). Result letter will be mailed to the patient. Note: At least 10% of breast cancer is not imaged by mammography. Dictated by: Dictated on workstation # [id number]
== END ==
LOC: RAD 12:33
PROVIDERS: ATTEND Nurse Practitioner Family
DX: N63.20 Unspecified lump in the left breast, unspecified quadrant (principal)
CPT/HCPCS: 76642; 77066

== ENCOUNTER 2019-03-06 03:39 | Emergency (ER) | payer OTHER ==
[~2019-03-06] VITALS: Ht 149.9 cm; Wt 77.6 kg
[~2019-03-06 03:39] MED LIST changes: +DIAZ5TAB PO; +METF-397 PO; -METF500T4 PO; -OMEP-10 GT; +OMEP-10 PO
--- OUTSIDE RECORDS SUMMARY | 2019-03-06 03:48 | XMS REPORT ---
Author Author BROOKS SORENSON Organization [facility] Address [address] [place] [address] Care Team Providers Care Sales And Marketing Assistant Name Role Phone BROOKS SORENSON Unavailable PROBLEMS Type Condition ICD9-CM Code WGO09-HV Code Onset Dates Condition Status SNOMED Code Problem GERD without esophagitis K21.9 Active 634995625 Problem Pre-diabetes R73.03 Active 139425591 Problem Post menopausal syndrome N95.1 Active 107363091 Problem Lumbago with sciatica, right side M54.41 Active 299419765 Problem Morbid (severe) obesity due to excess calories E66.01 Active 696806690 Problem Anxiety F41.9 Active 32872972 Problem Tobacco abuse counseling Z71.6 Active 954294816 Problem Tobacco abuse Z72.0 Active 339480911 Problem Body mass index (BMI) of 45.0-49.9 in adult Z68.42 Active 599764894 Problem Mixed hyperlipidemia E78.2 Active [id number] ALLERGIES No Information ENCOUNTERS Encounter Location Date Diagnosis [place] [id number] [place] [address] 43132- 1851 Oct, [facility] [id number] [place] [address] 23775- 5537 Oct, [place] [id number] [place] [address] 71646- 2565 28 Jul, 2018 Pre-diabetes R73.03 ; Anxiety F41.9 ; Body mass index (BMI) of 45.0-49.9 in adult Z68.42 and Morbid (severe) obesity due to excess calories E66.01 [place] [id number] [place] [address] 79780- 9524 Jul, [place] [id number] [place] [address] 23031- 9225 Jul, [place] [id number] [place] [address] 96493- 6114 Jun, [place] [id number] [place] [address] 69061- 2488 Jun, [place] [id number] [place] [address] 97566- 4035 Apr, Pre-diabetes R73.03 ; GERD without esophagitis K21.9 ; Tobacco abuse Z72.0 ; Tobacco abuse counseling Z71.6 ; Morbid obesity due to excess calories E66.01 ; Mixed hyperlipidemia E78.2 and Preoperative evaluation to rule out surgical contraindication Z01.818 [place] [id number] [place] [address] 01734- 5053 March, [place] [id number] [place] [address] 42465- 8223 Jan, [place] [id number] [place] [address] 38193- 5250 Jan, Post menopausal syndrome N95.1 [place] [id number] [place] [address] 16631- 5349 Dec, Pre-diabetes R73.03 ; GERD without esophagitis K21.9 ; Post menopausal syndrome N95.1 ; Tobacco abuse Z72.0 ; Tobacco abuse counseling Z71.6 ; Morbid obesity due to excess calories E66.01 and Lumbago with sciatica, right side M54.41 [place] [id number] [place] [address] 80339- 6155 Nov, [place] [id number] [place] [address] 72478- 0688 Oct, Breast lump on left side at 6 o'clock position N63.20 [place] [id number] [place] [address] 92782- 6234 Aug, [place] [address] [place] [address]- 4606 Jul, [facility] [id number] [place] [address] 17135- 6693 Jul, Morbid obesity due to excess calories E66.01 and Diabetes E11.9 [facility] [id number] [address]- 5815 Jul, Morbid obesity due to excess calories E66.01 and Diabetes E11.9 [facility] [id number] [place] [address] 93680- 1337 Jun, Morbid obesity due to excess calories E66.01 [facility] [id number] [place] [address] 98995- 9783 May, Wrist tendonitis M77.8 and Lumbago with sciatica, right side M54.41 [facility] [id number] [place] [address] 13582- 2076 Apr, Diabetes E11.9 and Morbid obesity due to excess calories E66.01 [facility] [address] [address]- 8684 March, [facility] [id number] [place] [address] 54165- 4218 March, [facility] [address] [address]- 2999 Nov, [facility] [id number] [place] [address] 78071- 5834 Nov, [facility] [address] [address]- 4681 Oct, [facility] [id number] [place] [address] 80051- 0175 Oct, Morbid obesity due to excess calories E66.01 [facility] [address] [address]- 2446 Oct, Lumbago with sciatica, right side M54.41 ; Morbid obesity due to excess calories E66.01 and Mood disorder F39 [facility] [id number] [place] [address] 44643- 1775 Oct, [facility] [id number] [place] [address] 44307- 0946 Oct, [facility] [id number] [place] [address] 93462- 6192 Sep, [facility] [id number] [place] [address] 55693- 9110 Jul, [facility] [id number] [place] [address] 43196- 5693 Jul, [facility] [id number] [place] [address] 46158- 5904 Jul, [facility] [id number] [place] [address] 90138- 7558 Jul, [facility] [id number] [place] [address] 52303- 6587 Jun, Other chronic pain G89.29 and Pain in left shoulder M25.512 [facility] [id number] [place] [address] 85050- 7824 May, [facility] [id number] [place] [address] 43909- 2839 May, Wrist tendonitis M77.8 ; Lumbago with sciatica, right side M54.41 and Other chronic pain G89.29 [facility] [id number] [address]- 4649 May, [facility] [id number] [place] [address] 91949- 8666 Apr, [facility] [id number] [place] [address] 10111- 2750 Apr, Generalized anxiety disorder F41.1 [facility] [id number] [address]- 5004 Apr, [facility] [id number] [place] [address] 74698- 1266 Apr, Generalized anxiety disorder F41.1 [facility] [address] [place] [address] 30394- 1436 March, [facility] [id number] [place] [address] 76338- 1339 March, Acute pain of left shoulder M25.512 and Left wrist pain M25.532 [facility] [address] [place] [address] 62119- 9919 Feb, [facility] [id number] [place] [address] 34436- 3491 Jan, Family history of diabetes mellitus Z83.3 [facility] [id number] [place] [address] 07790- 6893 Jan, [facility] [id number] [place] [address] 18308- 4536 Jan, [facility] [address] [place] [address] 97944- 6532 Dec, Family history of diabetes mellitus Z83.3 and Anxiety F41.9 [facility] [address], [place] [address]- 0460 Nov, [facility] [id number] [place] [address] 46213- 8839 Nov, [facility] [address], [place] [address] -2735 Nov, Streptococcal pharyngitis J02.0 ; Sore throat J02.9 and Acute diarrhea R19.7 [facility] [address], [place] [address]- 9264 Oct, [facility] [id number] [place] [address] 56234- 6431 Oct, [facility] [address], [place] [address]- 3071 Oct, Generalized anxiety disorder 300.02 [facility] [id number] [place] [address] 618019- 7143 Sep, [facility] [id number] [place] [address] 69205- 3558 Aug, [facility] [id number] [place] [address] 958284- 9346 Jul, [facility] [id number] [place] [address] [id number] Jul, Dental examination V72.2 [facility] [id number] [place] [address] 22914- 2499 Jun, [facility] [id number] [place] [address] 01163- 4704 Jun, [facility] [id number] [place] [address] 11015- 2479 May, Generalized anxiety disorder 300.02 ; Abnormal weight gain 783.1 ; Edema 782.3 and Family history of diabetes mellitus V18.0 [facility] [id number] [address]- 0876 May, [facility] [id number] [place] [address] 46028- 0348 May, [facility] [id number] [place] [address] 69751- 0835 Apr, [facility] [id number] [place] [address] 518909- 3601 March, [facility] [id number] [place] [address] 274380- 6551 Feb, [facility] [id number] [place] [address] 12311- 1988 Feb, [facility] [place] [facility] [address] [id number] [place] [address]- 5473 Jan, [facility] [place] [facility] [address] [id number] [place] [address]- 5846 Jan, [facility] [place] [facility] [address] [id number] [place] [address]- 0438 Jan, [facility] [place] [facility] [address] [id number] [place] [address]- 9004 Jan, [facility] [place] [facility] [address] [id number] [place] [address]- 6654 Dec, [facility] [place] [facility] [address] [id number] [place] [address]- 9199 Dec, [facility] [place] [facility] [address] [id number] [place] [address]- 4012 Nov, [facility] [place] [facility] [address] [id number] [place] [address]- 3991 Nov, [facility] [place] [facility] [address] [id number] [place] [address]- 8563 Oct, [facility] [place] [facility] [address] [id number] [place] [address]- 6301 Oct, [facility] [place] [facility] [address] [id number] [place] [address]- 5638 Sep, [facility] [place] [facility] [address] [id number] [place] [address]- 3848 Sep, [facility] [place] [facility] [address] [id number] [place] [address]- 7195 Sep, [facility] [place] [facility] [address] [id number] [place] [address]- 1734 Sep, [facility] [place] [facility] [address] [id number] [place] [address]- 3272 26 Jul, 2014 [facility] [place] [facility] [address] [id number] [place] [address]- 1219 Jul, [facility] [place] [facility] [address] [id number] [place] [address]- 6834 Jul, [facility] [place] [facility] [address] [id number] [place] [address]- 9835 Jul, [facility] [place] [facility] [address] [id number] [place] [address]- 5737 Jun, [facility] [place] [facility] [address] [id number] [place] [address]- 0697 Jun, [facility] [place] [facility] [address] [id number] [place] [address]- 4228 Jun, [facility] [place] [facility] [address] [id number] [place] [address]- 8679 Jun, [facility] [place] [facility] [address] [id number] [place] [address]- 7319 Jun, [facility] [place] [facility] [address] [id number] [place] [address]- 0272 Jun, [facility] [place] [facility] [address] [id number] [place] [address]- 3878 Jun, [facility] [place] [facility] [address] [id number] [place] [address]- 4908 Jun, [facility] [place] [facility] [address] [id number] [place] [address]- 6899 May, [facility] [place] [facility] [address] [id number] [place] [address]- 1178 May, [facility] [place] [facility] [address] [id number] [place] [address]- 2791 May, [facility] [place] [facility] [address] [id number] [place] [address]- 0008 May, [facility] [place] [facility] [address] [id number] [place] [address]- 4920 May, [facility] [place] [facility] [address] [id number] [place] [address]- 1884 Apr, [facility] [address] [id number] [place] [address]- 2915 Apr, [facility] [address] [id number] [place] [address]- 5093 March, [facility] [address] [id number] [place] [address]- 2391 March, [facility] [address] [id number] [place] [address]- 0253 March, [facility] [address] [facility] [id number] [place] [address]- 1990 March, [address] [id number] March [facility] [address] [id number] [place] [address]- 5355 March, [facility] [address] [id number] [place] [address]- 0379 Feb, [facility] [address] [id number] [place] [address]- 5977 Feb, [facility] [address] [facility] [id number] [place] [address]- 1653 Feb, [facility] [address] [id number] [place] [address]- 8897 18 Feb, 2014 [facility] [address] [id number] [place] [address]- 1804 16 Feb, 2014 [facility] [address] [id number] [place] [address]- 5500 16 Feb, 2014 [facility] [address] [id number] [place] [address]- 2361 15 Feb, 2014 [facility] [address] [id number] [place] [address]- 0320 15 Feb, 2014 [facility] [place] [facility] [address] [id number] [place] [address]- 2690 Feb, [facility] [place] [facility] [address] [id number] [place] [address]- 1127 Feb, [facility] [place] [facility] [address] [id number] [place] [address]- 7685 Feb, [facility] [place] [facility] [address] [id number] [place] [address]- 2999 Feb, [facility] [place] [facility] [address] [id number] [place] [address]- 8842 Feb, [facility] [place] [facility] [address] [id number] [place] [address]- 0081 Feb, [facility] [place] [facility] [address] [id number] [place] [address]- 8269 Jan, [facility] [place] [facility] [address] [id number] [place] [address]- 5408 Jan, [facility] [place] [facility] [address] [id number] [place] [address]- 3232 Dec, [facility] [place] [facility] [address] [id number] [place] [address]- 9226 Dec, [facility] [place] [facility] [address] [id number] [place] [address]- 4558 Dec, [facility] [place] [facility] [address] [id number] [place] [address]- 5777 Dec, [facility] [place] [facility] [address] [id number] [place] [address]- 0567 Nov, [facility] [place] [facility] [address] [id number] [place] [address]- 4010 Nov, [facility] [place] [facility] [address] [id number] [place] [address]- 3695 Oct, [facility] [place] [facility] [address] [id number], [place] [address]- 1436 Oct, [facility] [place] [facility] [address] [id number] [place] [address]- 9080 Oct, [facility] [place] [facility] [address] [id number] [place] [address]- 3456 Oct, [facility] [place] [facility] [address] [id number] [place] [address]- 9779 Sep, [facility] [place] [facility] [address] [id number] [place] [address]- 6361 Sep, [facility] [place] [facility] [address] [id number] [place] [address]- 2954 Sep, [facility] [place] [facility] [address] [id number] [place] [address]- 0061 Sep, [facility] [place] [facility] [address] [id number] [place] [address]- 5988 Jul, [facility] [place] [facility] [address] [id number] [place] [address]- 4283 Jul, [facility] [place] [facility] [address] [id number] [place] [address]- 8234 Jun, [facility] [place] [facility] [address] [id number] [place] [address]- 1455 Jun, [facility] [place] [facility] [address] [id number], [place] [address]- 2738 Jun, [facility] [place] [facility] [address] [id number], [place] [address]- 6182 May, [facility] [place] [facility] [address] [id number] [place] [address]- 0386 May, [facility] [place] [facility] [address] [id number] [place] [address]- 3605 Apr, [facility] [place] [facility] [address] [id number] [place] [address]- 3962 Apr, [facility] [place] [facility] [address] [id number] [place] [address]- 0764 17 Apr, 2013 [facility] [address] [id number] [place] [address]- 7385 13 Apr, 2013 [facility] [address] [id number] [place] [address]- 8457 12 Apr, 2013 [facility] [address] [id number] [place] [address]- 1243 03 Apr, 2013 [facility] [address] [id number] [place] [address]- 7606 March, [facility] [address] [id number] [place] [address]- 1013 29 Feb, 2013 [facility] [address] [id number] [place] [address]- 0825 Feb, [facility] [address] [id number] [place] [address]- 5308 Feb, [facility] [address] [id number] [place] [address]- 9428 Feb, [facility] [address] [id number] [place] [address]- 2677 04 Feb, 2013 [facility] [address] [id number] [place] [address]- 1897 Jan, [facility] [address] [id number] [place] [address]- 2371 28 Jan, 2013 [facility] [address] [id number] [place] [address]- 5657 11 Jan, 2013 [facility] [address] [id number] [place] [address]- 9437 28 Dec, 2012 [facility] [address] [id number] [place] [address]- 8316 18 Dec, 2012 [facility] [address] [id number] [place] [address]- 9227 Dec, [facility] [place] [facility] [address] [id number] [place] [address]- 0474 Dec, [facility] [place] [facility] [address] [id number] [place] [address]- 1016 Dec, [facility] [place] [facility] [address] [id number] [place] [address]- 5116 Nov, [facility] [place] [facility] [address] [id number] [place] [address]- 7206 Nov, [facility] [place] [facility] [address] [id number] [place] [address]- 5203 Oct, [facility] [place] [facility] [address] [id number] [place] [address]- 9216 Oct, [facility] [place] [facility] [address] [facility] [id number] [place] [address]- 4912 Oct, [facility] [place] [facility] [address] [id number] [place] [address] Oct, [facility] [place] [facility] [address] [id number] [place] [address] Sep, [facility] [place] [facility] [address] [id number] [place] [address] Sep, [facility] [place] [facility] [address] [id number], [place] [address] Sep, [facility] [place] [facility] [address] [id number], [place] [address] Sep, [facility] [place] [facility] [address] [id number] [place] [address] Aug, [facility] [place] [facility] [address] [id number] [place] [address] Aug, [facility] [place] [facility] [address] [facility] [id number] [place] [address] Aug, [facility] [place] [facility] [address] [id number] [place] [address] Aug, [facility] [place] [facility] [address] [id number] [place] [address] Aug, [facility] [place] [facility] [address] [id number] [place] [address] Aug, [facility] [address] [id number] [place] [address] Aug, [facility] [place] [facility] [address] [id number] [place] [address] Jun, [facility] [place] [facility] [address] [id number] [place] [address] Jun, [facility] [place] [facility] [address] [id number] [place] [address] May, [facility] [address] [id number] [place] [address] May, [facility] [place] [facility] [address] [id number] [place] [address] May, [facility] [place] [facility] [address] [id number] [place] [address] May, [facility] [address] [id number] [place] [address] May, [facility] [place] [facility] [address] [id number] [place] [address] May, [facility] [address] [id number] [id number] Apr, [facility] [place] [facility] [address] [id number] [place] [address] Apr, [facility] [place] [facility] [address] [id number] [place] [address] Feb, [facility] [place] [facility] [address] [id number] [place] [address] Jan, [facility] [place] [facility] [address] [id number] [place] [address] Jan, [facility] [place] [facility] [address] [id number] [place] [address] Jan, [facility] [place] [facility] [address] [id number] [place] [address] Jan, [facility] [place] [facility] [address] [id number] [place] [address] Jan, [facility] [place] [facility] [address] [id number] [place] [address] Jan, [facility] [place] [facility] [address] [id number] [place] [address] Jan, [facility] [place] [facility] [address] [id number] [place] [address] Jan, [facility] [place] [facility] [address] [id number] [place] [address] Dec, [facility] [place] [facility] [address] [id number] [place] [address] Sep, [facility] [place] [facility] [address] [id number] [place] [address] Aug, [facility] [place] [facility] [address] [id number] [place] [address] March, [facility] [place] [facility] [address] [id number] [place] [address] Oct, [facility] [place] [facility] [address] [id number] [place] [address] Oct, [facility] [place] [facility] [address] [id number] [place] [address] Oct, [facility] [place] [facility] [address] [id number] [place] [address] Aug, [facility] [place] [facility] [address] [id number] [place] [address] Aug, [facility] [address] [facility] [id number] [place] [address] Oct, IMMUNIZATIONS No Known Immunizations SOCIAL HISTORY Never Assessed REASON FOR VISIT PLAN OF CARE VITAL SIGNS MEDICATIONS Medication Instructions Dosage Frequency Start Date End Date Duration Status Metformin HCl 500 MG TAKE ONE TABLET BY MOUTH TWICE DAILY WITH MEALS 30 Active Hydrochlorothiazide 25 MG TAKE ONE TABLET BY MOUTH IN THE MORNING 30 Active RESULTS No Results PROCEDURES No Known procedures INSTRUCTIONS MEDICATIONS ADMINISTERED No Known Medications MEDICAL (GENERAL) HISTORY Type Description Date Medical History chest pain- clean cath- Dr Farrell Medical History hyperlipidemia Medical History obesity [...] for chest pain 10/2010 Hospitalization History [facility] for chest pain 01/2012 Hospitalization History Viral Lung Infection-ER visit 11/2017 Hospitalization History stress and anxiety 05/2018
--- OUTSIDE RECORDS SUMMARY | 2019-03-06 03:48 | XMS REPORT ---
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 Name Role Phone AGUILAR Alegria Unavailable PROBLEMS Type Condition ICD9-CM Code PPP44-EN Code Onset Dates Condition Status SNOMED Code Problem GERD without esophagitis K21.9 Active 723939083 Problem Pre-diabetes R73.03 Active 984486531 Problem Post menopausal syndrome N95.1 Active 451331447 Problem Lumbago with sciatica, right side M54.41 Active 983208060 Problem Morbid (severe) obesity due to excess calories E66.01 Active 963108593 Problem Anxiety F41.9 Active 89792930 Problem Tobacco abuse counseling Z71.6 Active 282482573 Problem Tobacco abuse Z72.0 Active 784629268 Problem Body mass index (BMI) of 45.0-49.9 in adult Z68.42 Active 291199930 Problem Mixed hyperlipidemia E78.2 Active 296436283 ALLERGIES Substance Reaction Event Type Date Status Niacin Unknown Drug Allergy Jul, Active ENCOUNTERS Encounter Location Date Diagnosis [facility] [id number], [place] [address] Jul, Pre-diabetes R73.03 ; Anxiety F41.9 ; Body mass index (BMI) of 45.0-49.9 in adult Z68.42 and Morbid (severe) obesity due to excess calories E66.01 [facility] [address], [place] [address] Jul, [facility] [address], [place] [address] Jul, [facility] [id number], [place] [address] Jun, [id number] [place] [address] 10138- 5582 Jun, [address] [id number] [place] [address] 36566- 3324 Apr, Pre-diabetes R73.03 ; GERD without esophagitis K21.9 ; Tobacco abuse Z72.0 ; Tobacco abuse counseling Z71.6 ; Morbid obesity due to excess calories E66.01 ; Mixed hyperlipidemia E78.2 and Preoperative evaluation to rule out surgical contraindication Z01.818 [address] [id number] [place] [address] 46674- 6044 March, [address] [id number] [place] [address] 41527- 0010 Jan, [id number] [place] [address] 57520- 8631 Jan, Post menopausal syndrome N95.1 [address] [id number] [place] [address] 05346- 5700 Dec, Pre-diabetes R73.03 ; GERD without esophagitis K21.9 ; Post menopausal syndrome N95.1 ; Tobacco abuse Z72.0 ; Tobacco abuse counseling Z71.6 ; Morbid obesity due to excess calories E66.01 and Lumbago with sciatica, right side M54.41 [address] [place] [id number] [address] Nov, [address] [place] [id number] [place] [address] 02677- 1221 Oct, Breast lump on left side at 6 o'clock position N63.20 [address] [id number] [place] [address] 51306- 0281 Aug, [id number] [place] [address] 58026- 0778 Jul, [address] [id number] [place] [address] 41233- 7471 Jul, Morbid obesity due to excess calories E66.01 and Diabetes E11.9 [facility] [address], [place] [address] Jul, Morbid obesity due to excess calories E66.01 and Diabetes E11.9 [facility] [address], [place] [address] 0[address] Jun, Morbid obesity due to excess calories E66.01 [facility] [id number] [place] [address] 69598- 4490 May, Wrist tendonitis M77.8 and Lumbago with sciatica, right side M54.41 [address] [id number] [place] [address] 31543- 2110 Apr, Diabetes E11.9 and Morbid obesity due to excess calories E66.01 [facility] [id number] [address] March, [facility] [id number] [place] [address] 24890- 4823 March, [facility] [id number] [place] [address] 32697- 7880 Nov, [facility] [id number] [place] [address] 79906- 1994 Nov, [facility] [address] [address]- 0181 Oct, [facility] [id number] [place] [address] 74400- 1983 Oct, Morbid obesity due to excess calories E66.01 [facility] [id number] [place] [address] 90878- 8452 Oct, Lumbago with sciatica, right side M54.41 ; Morbid obesity due to excess calories E66.01 and Mood disorder F39 [facility] [address], [place] [address] 4[address] Oct, [facility] [address], [place] [address]- 4398 Oct, [facility] [id number] [place] [address] 64122- 8890 Sep, [facility] [id number] [place] [address] 65489- 1763 Jul, [facility] [id number] [place] [address] 79977- 6484 Jul, [facility] [id number] [place] [address] 32419- 5986 Jul, [facility] [id number] [place] [address] 70998- 8861 Jul, [facility] [id number] [place] [address] 56986- 5468 Jun, Other chronic pain G89.29 and Pain in left shoulder M25.512 [facility] [id number] [place] [address] 40974- 6469 May, [facility] [id number] [place] [address] 68644- 1630 May, Wrist tendonitis M77.8 ; Lumbago with sciatica, right side M54.41 and Other chronic pain G89.29 [facility] [id number] [place] [address] 12032- 3954 May, [facility] [id number], [place] [address]- 5498 Apr, [facility] [id number] [place] [address] 24203- 0814 Apr, Generalized anxiety disorder F41.1 [facility] [id number] [place] [address] 15435- 1299 Apr, [facility] [id number] [place] [address] 14920- 3531 Apr, Generalized anxiety disorder F41.1 [facility] [address], [place] [address]- 2329 March, [facility] [id number] [place] [address] 53790- 0431 March, Acute pain of left shoulder M25.512 and Left wrist pain M25.532 [facility] [id number] [place] [address] 61253- 3889 Feb, [facility] [id number] [place] [address] 81176- 8402 Jan, Family history of diabetes mellitus Z83.3 [facility] [id number] [place] [address] 78516- 0086 Jan, [facility] [id number] [place] [address] 66968- 1363 Jan, [facility] [id number] [place] [address] 31042- 1321 Dec, Family history of diabetes mellitus Z83.3 and Anxiety F41.9 [facility] [id number] [place] [address] 12917- 5413 Nov, [facility] [address], [place] [address]- 3794 Nov, [facility] [address], [place] [address] Nov, Streptococcal pharyngitis J02.0 ; Sore throat J02.9 and Acute diarrhea R19.7 [facility] [address], [place] [address]- 8364 Oct, [facility] [id number] [place] [address] 41727- 1470 Oct, [facility] [address], [place] [address]- 3829 Oct, Generalized anxiety disorder 300.02 [facility] [address], [place] [address]- 6920 Sep, [facility] [address], [place] [address]- 4775 Aug, [facility] [address] 8712 Jul, [facility] [id number] [place] [address] [id number] Jul, Dental examination V72.2 [facility] [id number] [place] [address] 94165- 7866 Jun, [facility] [id number] [place] [address] 43454- 6132 Jun, [facility] [id number] [place] [address] 13582- 3355 May, Generalized anxiety disorder 300.02 ; Abnormal weight gain 783.1 ; Edema 782.3 and Family history of diabetes mellitus V18.0 [facility] [address], [place] [address]- 5004 May, [facility] [id number] [place] [address] 74378- 7632 May, [facility] [address], [place] [address]- 3949 Apr, [facility] [address], [place] [address]- 7135 March, [facility] [address] 6953 Feb, [facility] [id number] [place] [address] 09634- 8506 Feb, [facility] [address] 8065 Jan, [facility] [address], [place] [address]- 0660 Jan, [facility] [place] [facility] [address] [id number] [place] [address]- 2234 Jan, [facility] [place] [facility] [address] [id number] [place] 1657 Jan, [facility] [place] [facility] [address] [id number] [place] [address]- 1765 Dec, [facility] [place] [facility] [address] [id number] [place] [address]- 5440 Dec, [facility] [place] [facility] [address] [id number] [place] [address]- 4580 Nov, [facility] [place] [facility] [address] [id number] [place] [address]- 7385 Nov, [facility] [place] [facility] [address] [id number] [place] [address]- 7091 Oct, [facility] [place] [facility] [address] [id number] [place] [address]- 5734 Oct, [facility] [place] [facility] [address] [id number] [place] [address]- 1314 Sep, [facility] [place] [facility] [address] [id number] [place] [address]- 1125 Sep, [facility] [place] [facility] [address] [id number] [place] [address]- 4711 Sep, [facility] [place] [facility] [address] [id number] [place] [address]- 4841 Sep, [facility] [place] [facility] [address] [id number] [place] [address]- 6060 Jul, [facility] [place] [facility] [address] [id number] [place] [address]- 4880 Jul, [facility] [place] [facility] [address] [id number] [place] [address]- 2266 Jul, [facility] [place] [facility] [address] [id number] [place] [address]- 4846 Jul, [facility] [place] [facility] [address] [id number] [place] [address]- 4765 Jun, [facility] [place] [facility] [address] [id number] [place] [address]- 0271 Jun, [facility] [place] [facility] [address] [id number] [place] [address]- 4320 Jun, [facility] [place] [facility] [address] [id number] [place] [address]- 1311 Jun, [facility] [place] [facility] [address] [id number] [place] [address]- 9643 Jun, [facility] [place] [facility] [address] [id number] [place] [address]- 8251 Jun, [facility] [place] [facility] [address] [id number] [place] [address]- 1044 Jun, [facility] [place] [facility] [address] [id number] [place] [address]- 1155 Jun, [facility] [place] [facility] [address] [id number] [place] [address]- 4323 May, [facility] [place] [facility] [address] [id number] [place] [address]- 9457 May, [facility] [place] [facility] [address] [id number] [place] [address]- 7371 May, [facility] [place] [facility] [address] [id number] [place] [address]- 9161 May, [facility] [place] [facility] [address] [id number] [place] 1462 May, [facility] [place] [facility] [address] [id number] [place] [address]- 5110 Apr, [facility] [place] [facility] [address] [id number] [place] [address]- 9622 Apr, [facility] [address] [id number] [place] [address]- 9522 March, [facility] [address] [id number] [place] [address]- 4966 March, [facility] [address] [id number] [place] [address]- 1066 March, [facility] [address] [id number] [place] [address]- 5844 March, [facility] [id number] March [facility] [address] [id number] [place] [address]- 5933 March, [facility] [address] [id number] [place] [address]- 8339 Feb, [facility] [address] [id number] [place] [address]- 0181 Feb, [facility] [address] [id number] [place] [address]- 4879 Feb, [facility] [address] [id number] [place] [address]- 6470 Feb, [facility] [address] [id number] [place] [address]- 9003 Feb, [facility] [address] [id number] [place] [address]- 8949 16 Feb, 2014 [facility] [address] [id number] [place] [address]- 6809 15 Feb, 2014 [facility] [place] [facility] [address] [id number] [place] [address]- 7449 15 Feb, 2014 [facility] [address] [id number] [place] [address]- 0531 10 Feb, 2014 [facility] [address] [id number] [place] [address]- 5466 Feb, [facility] [place] [facility] [address] [id number] [place] [address]- 7875 Feb, [facility] [place] [facility] [address] [id number] [place] [address]- 2275 Feb, [facility] [place] [facility] [address] [id number] [place] [address]- 1808 Feb, [facility] [place] [facility] [address] [id number] [place] [address]- 7748 Feb, [facility] [place] [facility] [address] [id number] [place] [address]- 2175 Jan, [facility] [place] [facility] [address] [id number] [place] [address]- 7172 Jan, [facility] [place] [facility] [address] [id number] [place] [address]- 7097 Dec, [facility] [place] [facility] [address] [id number] [place] [address]- 4662 Dec, [facility] [place] [facility] [address] [id number] [place] [address]- 4064 Dec, [facility] [place] [facility] [address] [id number] [place] [address]- 1837 Dec, [facility] [place] [facility] [address] [id number] [place] [address]- 3263 Nov, [facility] [place] [facility] [address] [id number] [place] [address]- 5662 Nov, [facility] [place] [facility] [address] [id number] [place] [address]- 9278 Oct, [facility] [place] [facility] [address] [id number] [place] [address]- 7882 Oct, [facility] [place] [facility] [address] [id number] [place]- 7160 Oct, [facility] [place] [facility] [address] [id number] [place] [address] 2548 Oct, [facility] [address] [id number] [place] [address]- 6205 Sep, [facility] [place] [facility] [address] [id number] [place] [address] 2546 Sep, [facility] [address] [id number] [place] [address]- 0322 Sep, [facility] [place] [facility] [address] [id number] [place] [address]- 5311 Sep, [facility] [address] [id number] [place] [address]- 4439 Jul, [facility] [address] [id number] [place] [address]- 7020 Jul, [facility] [address] [id number] [place] [address]- 0752 Jun, [facility] [address] [id number] [place] [address]- 1581 Jun, [facility] [place] [facility] [address] [id number] [place] [address]- 6069 Jun, [facility] [address] [id number] [place] [address]- 4010 15 May, 2013 [facility] [place] [facility] [address] [id number] [place] [address]- 1834 May, [facility] [address] [id number] [place] [address]- 3941 Apr, [facility] [place] [facility] [address] [id number] [place] [address]- 9733 Apr, [facility] [place] [facility] [address] [id number] [place] [address] 2546 Apr, [facility] [place] [facility] [address] [id number] [place] [address]- 1535 Apr, [facility] [address] [id number] [place] [address]- 9346 Apr, [facility] [place] [facility] [address] [id number] [place] [address]- 0444 Apr, [facility] [place] [facility] [address] [id number] [place] [address]- 8796 March, [facility] [place] [facility] [address] [id number] [place] [address]- 3337 Feb, [facility] [place] [facility] [address] [id number] [place] [address]- 4764 Feb, [facility] [place] [facility] [address] [id number] [place] [address]- 8943 Feb, [facility] [place] [facility] [address] [id number] [place] [address]- 1427 Feb, [facility] [place] [facility] [address] [id number] [place] [address]- 6219 Feb, [facility] [place] [facility] [address] [id number] [place] [address]- 0083 Jan, [facility] [place] [facility] [address] [id number] [place] [address]- 9094 Jan, [facility] [place] [facility] [address] [id number] [place] [address]- 5139 Jan, [facility] [place] [facility] [address] [id number] [place] [address]- 1124 28 Dec, 2012 [facility] [place] [facility] [address] [id number] [place] [address]- 1424 18 Dec, 2012 [facility] [place] [facility] [address] [id number] [place] [address]- 2963 15 Dec, 2012 [facility] [place] [facility] [address] [id number] [place] [address]- 3185 08 Dec, 2012 [facility] [place] [facility] [address] [id number] [place] [address]- 8624 Dec, [facility] [address] [id number] [place] [address]- 3190 Nov, [facility] [place] [facility] [address] [id number] [place] [address]- 5946 Nov, [facility] [address] [id number] [place] [address]- 6369 Oct, [facility] [place] [facility] [address] [id number] [place] [address] Oct, [facility] [address] [id number] [place] [address] Oct, [facility] [address] [id number] [place] [address] Oct, [facility] [address] [facility] [id number] [place] [address] Sep, [facility] [address] [id number] [place] [address] Sep, [facility] [address] [facility] [id number] [place] [address] Sep, [facility] [address] [facility] [id number] [place] [address] Sep, [facility] [place] [facility] [address] [id number] [place] [address] Aug, [facility] [place] [facility] [address] [id number] [place] [address] Aug, [facility] [place] [facility] [address] [id number] [place] [address] Aug, [facility] [place] [facility] [address] [facility] [id number] [place] [address] Aug, [facility] [place] [facility] [address] [id number] [place] [address] Aug, [facility] [place] [facility] [address] [id number] [place] [address] 15 Aug, 2012 [facility] [place] [facility] [address] [id number] [place] [address] Aug, [facility] [place] [facility] [address] [id number] [place] [address] Jun, [facility] [place] [facility] [address] [id number] [place] [address] Jun, [facility] [place] [facility] [address] [id number] [place] [address] May, [facility] [place] [facility] [address] [id number] [place] [address] May, [facility] [place] [facility] [address] [id number] [place] [address] May, [facility] [address] [id number] [place] [address] May, [facility] [address] [id number] [place] [address] May, [facility] [address] [id number][place] [address] May, [facility] [address] [id number] [id number] Apr, [facility] [place] [facility] [address] [id number], [place] [address] Apr, [facility] [place] [facility] [address] [id number] [place] [address] Feb, [facility] [place] [facility] [address] [id number] [place] [address] Jan, [facility] [place] [facility] [address] [id number] [place] [address] Jan, [facility] [place] [facility] [address] [id number] [place] [address] Jan, [facility] [address] [facility] [id number], [place] [address] Jan, [facility] [address] [facility] [id number][place] [address] Jan, [facility] [address] [facility] [id number], [place] [address] Jan, [facility] [address] [facility] [id number], [place] [address] Jan, [facility] [address] [facility] [id number] [place] [address] Jan, [facility] [address] [facility] [id number][place] [address] Dec, [facility] [address] [facility] [id number], [place] [address] Sep, [facility] [address] [facility] [id number], [place] [address] Aug, [facility] [address] [facility] [id number], [place] [address] March, [facility] [address] [facility] [id number][place] [address] Oct, [facility] [address] [id number], [place] [address] Oct, [facility] [address] [facility] [id number], [place] [address] Oct, [facility] [address] [facility] [id number], [place] [address] Aug, [facility] [address] [facility] [id number], [place] [address] Aug, [facility] [address] [id number], [place] [address] Oct, IMMUNIZATIONS No Known Immunizations SOCIAL HISTORY Never Assessed REASON FOR VISIT Diabetes follow up. TAY López, would like to change klonopin to valium. TAY López PLAN OF CARE Activity Details Follow Up 3 Months, prn Reason:CHM/Anxiety w/ Joseph VITAL SIGNS Height 59.5 in 2018-08-24 Weight 228.8 lbs 2018-08-24 Temperature 98.4 degrees Fahrenheit 2018-08-24 Heart Rate 68 bpm 2018-08-24 Respiratory Rate 18 2018-08-24 BMI 45.43 kg/m2 2018-08-24 Blood pressure systolic 102 mmHg 2018-08-24 Blood pressure diastolic 68 mmHg 2018-08-24 MEDICATIONS Medication Instructions Dosage Frequency Start Date End Date Duration Status Ibuprofen 800 MG Orally PRN 1 tablet with food or milk Active Aspirin 81 MG Orally Once a day 1 tablet 24h Active Omeprazole 20 MG TAKE ONE CAPSULE BY MOUTH TWICE DAILY 30 Active Atorvastatin Calcium 20 mg TAKE ONE TABLET BY MOUTH ONCE DAILY 30 Active Diazepam 10 mg Orally Twice a day as needed 1 tablet as needed Jul, 28 days Active Metformin HCl 500 MG TAKE ONE TABLET BY MOUTH TWICE DAILY WITH MEALS 30 Active Hydrochlorothiazide 25 MG TAKE ONE TABLET BY MOUTH IN THE MORNING 30 Active Celebrex 200 mg Orally Once a day 1 capsule with food 24h 90 Active RESULTS Name Result Date Reference Range A1C (IN HOUSE) A1C IN HOUSE 5.9 4.3 - 5.6 % Previous A1c 6.2 Lot [id number] Exp date 01/2020 PROCEDURES Procedure Date Ordered Result Body Site GLYCATED HEMOGLOBIN TEST Aug 24, 2018 INSTRUCTIONS MEDICATIONS ADMINISTERED No Known Medications MEDICAL [...] History [facility] for chest pain 01/2012 Hospitalization History Viral Lung Infection-ER visit 11/2017 Hospitalization History stress and anxiety 05/2018
--- OUTSIDE RECORDS SUMMARY | 2019-03-06 03:49 | XMS REPORT ---
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 Name Role Phone SHERLYMATHEWAGUILAR Unavailable PROBLEMS Type Condition ICD9-CM Code MHB21-IY Code Onset Dates Condition Status SNOMED Code Problem Morbid obesity due to excess calories E66.01 Active 351116380 Problem Lumbago with sciatica, right side M54.41 Active 688342725 Problem Mixed hyperlipidemia E78.2 Active 040665541 Problem Tobacco abuse counseling Z71.6 Active 830590404 Problem Pre-diabetes R73.03 Active 814455217 Problem Post menopausal syndrome N95.1 Active 375186739 Problem Tobacco abuse Z72.0 Active 196873727 Problem GERD without esophagitis K21.9 Active 629222696 ALLERGIES No Information ENCOUNTERS Encounter Location Date Diagnosis [place] [id number] [place] [address] 37765- 8255 Jul, [place] [id number] [place] [address] 60347- 7522 Jul, [place] [id number] [place] [address] 30294- 5113 Jun, [place] [id number] [place] [address] 15253- 6186 Jun, [place] [id number] [place] [address] 91740- 7563 Apr, Pre-diabetes R73.03 ; GERD without esophagitis K21.9 ; Tobacco abuse Z72.0 ; Tobacco abuse counseling Z71.6 ; Morbid obesity due to excess calories E66.01 ; Mixed hyperlipidemia E78.2 and Preoperative evaluation to rule out surgical contraindication Z01.818 [place] [address] [place] [address] March, [facility] [place] [id number] [place] [address] 94408- 5201 Jan, [facility] [place] [id number] [place] [address] 69592- 8790 Jan, Post menopausal syndrome N95.1 [place] [id number] [place] [address] 68167- 0370 Dec, Pre-diabetes R73.03 ; GERD without esophagitis K21.9 ; Post menopausal syndrome N95.1 ; Tobacco abuse Z72.0 ; Tobacco abuse counseling Z71.6 ; Morbid obesity due to excess calories E66.01 and Lumbago with sciatica, right side M54.41 [place] [id number] [place] [address] 68384- 3412 Nov, [place] [id number] [place] [address] 09878- 6867 Oct, Breast lump on left side at 6 o'clock position N63.20 [place] [id number] [place] [address] 06187- 5472 Aug, [place] [id number] [place] [address] 25363- 1877 Jul, [place] [id number] [place] [address] 29882- 9474 Jul, Morbid obesity due to excess calories E66.01 and Diabetes E11.9 [place] [id number] [place] [address] 68997- 3670 Jul, Morbid obesity due to excess calories E66.01 and Diabetes E11.9 [place] [id number] [place] [address] 79044- 3625 Jun, Morbid obesity due to excess calories E66.01 [place] [id number] [place] [address] 73673- 2536 May, Wrist tendonitis M77.8 and Lumbago with sciatica, right side M54.41 [facility] [place] [address] [address] 4732 Apr, Diabetes E11.9 and Morbid obesity due to excess calories E66.01 [facility] [place] [address] [address] 6101 March, [facility] [place] [id number] [place] [address] 48507- 0088 March, [facility] [place] [id number] [place] [address] 72755- 3506 Nov, [facility] [place] [id number] [place] [address] 69217- 5534 Nov, [facility] [place] [id number] [address]- 1682 Oct, [facility] [place] [id number] [place] [address] 03502- 7312 Oct, Morbid obesity due to excess calories E66.01 [facility] [place] [id number] [place] [address] 66500- 8974 Oct, Lumbago with sciatica, right side M54.41 ; Morbid obesity due to excess calories E66.01 and Mood disorder F39 [facility] [place] [address] [address] 7614 Oct, [facility] [place] [address], [place] [address]- 1088 Oct, [facility] [place] [address], [place] [address]- 8021 Sep, [facility] [place] [id number] [address]- 8317 Jul, [facility] [place] [address], [place] [address]- 7231 Jul, [facility] [place] [id number] [address]- 4505 Jul, [facility] [place] [id number] [place] [address] 84846- 5970 Jul, [facility] [place] [id number] [place] [address] 58552- 6931 Jun, Other chronic pain G89.29 and Pain in left shoulder M25.512 [facility] [place] [id number] [place] [address] 75952- 7993 May, [facility] [place] [id number] [place] [address] 91599- 8507 May, Wrist tendonitis M77.8 ; Lumbago with sciatica, right side M54.41 and Other chronic pain G89.29 [facility] [place] [id number] [place] [address] 16316- 1069 May, [facility] [place] [id number] [place] [address] 58171- 1006 Apr, [facility] [place] [id number] [place] [address] 49838- 6115 Apr, Generalized anxiety disorder F41.1 [facility] [place] [id number] [place] [address] 45225- 0441 Apr, [facility] [place] [id number] [place] [address] 98483- 9714 Apr, Generalized anxiety disorder F41.1 [facility] [place] [id number] [place] [address] 71401- 7013 March, [facility] [place] [id number] [place] [address] 90803- 3250 March, Acute pain of left shoulder M25.512 and Left wrist pain M25.532 [facility] [place] [address] [address]- 9539 Feb, [facility] [place] [id number] [place] [address] 74823- 5753 Jan, Family history of diabetes mellitus Z83.3 [facility] [place] [id number] [place] [address] 55877- 8701 Jan, [facility] [place] [id number] [place] [address] 916151- 4149 Jan, [facility] [place] [id number] [place] [address] 80233- 2483 Dec, Family history of diabetes mellitus Z83.3 and Anxiety F41.9 [facility] [place] [id number] [place] [address] 59058- 9514 Nov, [facility] [place] [id number] [place] [address] 12713- 2302 Nov, [facility] [id number] [place] [address] 67614 -3666 Nov, Streptococcal pharyngitis J02.0 ; Sore throat J02.9 and Acute diarrhea R19.7 [facility] [place] [address], [place] [address]- 3467 Oct, [facility] [place] [id number] [place] [address] 89818- 0474 Oct, [facility] [place] [address], [place] [address]- 4800 Oct, Generalized anxiety disorder 300.02 [facility] [place] [id number], [place] [address]- 1056 Sep, [facility] [place] [id number], [place] [address]- 4642 Aug, [facility] [place] [id number] [place] [address] 44881- 8326 Jul, [facility] [id number] [address] 04 Jul, 2015 Dental examination V72.2 [facility] [place] [id number] [place] [address]- 9619 Jun, [facility] [place] [id number] [place] [address]- 7855 Jun, [facility] [place] [id number] [place] [address]- 0409 May, Generalized anxiety disorder 300.02 ; Abnormal weight gain 783.1 ; Edema 782.3 and Family history of diabetes mellitus V18.0 [facility] [place] [id number] [place] [address]- 4015 May, [facility] [place] [id number] [place] [address]- 3926 May, [facility] [place] [id number] [place] [address]- 6786 Apr, [facility] [place] [id number] [place] [address]- 4503 March, [facility] [place] [id number] [place] [address]- 2894 Feb, [facility] [place] [id number] [place] [address]- 8154 Feb, [facility] [place] [id number], [place] [address]- 2624 Jan, [facility] [place] [id number] [place] [address]- 1040 Jan, [facility] [place] [id number] [place] [address]- 2676 Jan, [facility] [place] [id number] [place] [address]- 0656 Jan, [facility] [place] [id number] [place] [address]- 2958 Dec, [facility] [place] [id number] [place] [address]- 3821 Dec, [facility] [place] [facility] [address] [id number] [place] [address]- 7661 Nov, [facility] [place] [facility] [address] [id number] [place] [address]- 8499 Nov, [facility] [place] [facility] [address] [id number] [place] [address]- 3526 Oct, [facility] [place] [facility] [address] [id number] [place] [address]- 0950 Oct, [facility] [place] [facility] [address] [id number] [place] [address]- 3383 Sep, [facility] [place] [facility] [address] [id number] [place] [address]- 5867 Sep, [facility] [place] [facility] [address] [id number] [place] [address]- 9327 Sep, [facility] [place] [facility] [address] [id number] [place] [address]- 8957 Sep, [facility] [place] [facility] [address] [id number] [place] [address]- 6717 Jul, [facility] [place] [facility] [address] [id number] [place] [address]- 6263 Jul, [facility] [place] [facility] [address] [id number] [place] [address]- 5703 Jul, [facility] [place] [facility] [address] [id number] [address] Jul, [facility] [place] [facility] [address] [id number] [place] [address]- 3927 Jun, [facility] [place] [facility] [address] [id number] [place] [address]- 9340 Jun, [facility] [place] [facility] [address] [id number] [place] [address]- 5938 Jun, [facility] [place] [facility] [address] [id number] [address]- 8031 Jun, [facility] [address] [id number] [place] [address]- 9251 Jun, [facility] [place] [facility] [address] [id number] [place] [address]- 5713 Jun, [facility] [place] [facility] [address] [id number] [place] [address]- 6469 Jun, [facility] [place] [facility] [address] [id number] [place] [address]- 2957 Jun, [facility] [place] [facility] [address] [id number] [place] [address]- 8317 May, [facility] [place] [facility] [address] [id number] [place] [address]- 6657 May, [facility] [place] [facility] [address] [id number] [place] [address]- 3457 May, [facility] [place] [facility] [address] [id number] [place] [address]- 0416 May, [facility] [place] [facility] [address] [id number] [place] [address]- 3023 May, [facility] [place] [facility] [address] [id number] [place] [address]- 5953 Apr, [facility] [place] [facility] [address] [id number] [place] [address]- 0428 Apr, [facility] [place] [facility] [address] [id number] [place] [address]- 1869 March, [facility] [place] [facility] [address] [id number] [place] 4630 March, [facility] [place] [facility] [address] [id number] [place] [address]- 9153 March, [facility] [place] [facility] [address] [id number] [place] [address]229 March, [facility] [address] [place] [id number] March [facility] [address] [id number] [place] [address]- 1627 March, [facility] [address] [id number] [place] [address]- 6824 Feb, [facility] [address] [id number] [place] [address]- 9467 Feb, [facility] [address] [id number] [place] [address]- 9736 Feb, [facility] [address] [id number] [place] [address]- 6761 Feb, [facility] [address] [id number] [place] [address]- 3508 Feb, [facility] [address] [id number] [place] [address]- 7238 Feb, [facility] [address] [id number] [place] [address]- 0874 15 Feb, 2014 [facility] [address] [id number] [place] [address]- 1829 Feb, [facility] [address] [id number] [place] [address]- 2746 Feb, [facility] [address] [id number] [place] [address]- 3385 Feb, [facility] [address] [id number] [place] [address]- 4786 Feb, [facility] [address] [id number] [place] [address]- 4895 Feb, [facility] [address] [id number] [place] [address]- 9188 Feb, [facility] [address] [id number] [place] [address]- 4581 Feb, [facility] [place] [facility] [address] [id number] [place] [address]- 3949 Jan, [facility] [place] [facility] [address] [id number] [place] [address]- 2761 Jan, [facility] [place] [facility] [address] [id number] [place] [address]- 7344 Dec, [facility] [place] [facility] [address] [id number] [place] [address]- 7024 Dec, [facility] [place] [facility] [address] [id number] [place] [address]- 7443 Dec, [facility] [place] [facility] [address] [id number] [place] [address]- 7243 Dec, [facility] [place] [facility] [address] [id number] [place] [address]- 9831 Nov, [facility] [place] [facility] [address] [id number] [place] [address]- 3152 Nov, [facility] [place] [facility] [address] [id number] [place] [address]- 0275 Oct, [facility] [place] [facility] [address] [id number] [place] [address]- 0377 Oct, [facility] [place] [facility] [address] [facility] [id number] [place] [address]- 8682 Oct, [facility] [place] [facility] [address] [id number], [place] [address]- 4491 Oct, [facility] [place] [facility] [address] [id number] [place] [address]- 2952 Sep, [facility] [place] [facility] [address] [id number] [place] [address]- 0297 Sep, [facility] [place] [facility] [address] [facility] [id number] [place] [address]- 8911 Sep, [facility] [place] [facility] [address] [id number] [place] [address]- 2790 Sep, [facility] [address] [id number] [place] [address]- 6288 Jul, [facility] [place] [facility] [address] [id number] [place] [address]- 1890 Jul, [facility] [place] [facility] [address] [id number] [place] [address]- 7156 Jun, [facility] [place] [facility] [address] [id number] [place] [address]- 3575 Jun, [facility] [place] [facility] [address] [id number] [place] [address]- 5951 Jun, [facility] [place] [facility] [address] [id number] [place] [address]- 9899 May, [facility] [place] [facility] [address] [id number] [place] [address]- 0155 May, [facility] [place] [facility] [address] [id number] [place] [address]- 0932 Apr, [facility] [place] [facility] [address] [id number] [place] [address]- 2513 Apr, [facility] [place] [facility] [address] [id number] [place] [address]- 4873 Apr, [facility] [place] [facility] [address] [id number] [place] [address]- [address] Apr, [facility] [place] [facility] [address] [id number] [place] [address] Apr, [facility] [place] [facility] [address] [id number] [place] [address] Apr, [facility] [place] [facility] [address] [id number] [place] [address] March, [facility] [place] [facility] [address] [id number] [place] [address] Feb, [facility] [place] [facility] [address] [id number] [place] [address] Feb, [facility] [address] [id number] [place] [address] Feb, [facility] [place] [facility] [address] [id number] [place] [address] Feb, [facility] [place] [facility] [address] [id number] [place] [address] 04 Feb, 2013 [facility] [place] [facility] [address] [id number] [place] [address] Jan, [facility] [place] [facility] [address] [id number] [place] [address]- [address] Jan, [facility] [place] [facility] [address] [facility] [id number] [place] [address]- [address] Jan, [facility] [place] [facility] [address] [id number] [place] [address] Dec, [facility] [place] [facility] [address] [id number] [place] [address]- [address] Dec, [facility] [place] [facility] [address] [id number] [place] [address] Dec, [facility] [place] [facility] [address] [id number] [place] [address] Dec, [facility] [place] [facility] [address] [id number] [place] [address] Dec, [facility] [place] [facility] [address] [id number] [id number] [address] Nov, [facility] [place] [facility] [address] [id number] [place] [address]31 Nov, [facility] [place] [facility] [address] [id number] [place] [address] Oct, [facility] [place] [facility] [address] [id number] [place] [address]46 Oct, [facility] [place] [facility] [address] [id number] [place] [address]- [address]206 Oct, [facility] [place] [facility] [address] [id number] [place] [address]- [address] Oct, [facility] [place] [facility] [address] [id number] [place] [address]- [address] Sep, [facility] [place] [facility] [address] [id number] [place] [address]- [address] Sep, [facility] [place] [facility] [address] [id number] [place] [address]- [address] Sep, [facility] [place] [facility] [address] [id number] [place] [address] Sep, [facility] [place] [facility] [address] [id number] [place] [address] Aug, [facility] [place] [facility] [address] [id number] [place] [address] Aug, [facility] [place] [facility] [address] [id number] [place] [address] Aug, [facility] [place] [facility] [address] [id number] [place] [address] 8431 Aug, [facility] [place] [facility] [address] [id number] [place] [address] 2899 Aug, [facility] [place] [facility] [address] [id number] [place] [address]- 48[address] Aug, [facility] [place] [facility] [address] [id number] [place] [address]199 Aug, [facility] [place] [facility] [address] [id number] [place] [address]- [address] Jun, [facility] [place] [facility] [address] [id number] [place] [address] Jun, [facility] [place] [facility] [address] [id number] [place] [address] 30 May, 2012 [facility] [address] [id number] [place] [address] 24 May, 2012 [facility] [address] [id number] [place] [address] May, [facility] [address] [id number] [place] [address] May, [facility] [address] [id number] [place] [address]- [address]66 May, [facility] [address] [id number] [place] [address]- [address]46 May, [facility] [address] [id number] [place] [id number] Apr, [facility] [address] [id number] [place] [address] Apr, [facility] [address] [id number] [place] [address]- [address] Feb, [facility] [address] [id number] [place] [address]- [address] Jan, [facility] [address] [id number] [place] [address] Jan, [facility] [address] [id number] [place] [id number] Jan, [facility] [address] [id number] [place] [address] Jan, [facility] [place] [facility] [address] [id number] [place] [address] Jan, [facility] [place] [facility] [address] [id number] [place] [address] Jan, [facility] [place] [facility] [address] [id number] [place] [address] Jan, [facility] [place] [address] [id number] [address] Jan, [facility] [place], [facility] [id number] [address] Dec, [facility] [place], [facility] [id number], [place] [address] Sep, [facility] [place], [facility] [id number] [address] Aug, [facility] [place], [facility] [address] [facility] [id number] [address] March, [facility] [place], [facility] [id number], [place] [address] Oct, [facility] [place], [facility] [id number] [address] Oct, [facility] [place], [facility] [id number], [place] [address] Oct, [facility] [place], [facility] [id number], [place] [address] Aug, [facility] [place], [facility] [id number], [place] [address] Aug, [facility] [place], [facility] [address] [id number], [place] [address] Oct, IMMUNIZATIONS No Known Immunizations SOCIAL HISTORY Never Assessed REASON FOR VISIT Requests return call PLAN OF CARE VITAL SIGNS MEDICATIONS Unknown [...] carpal tunnel, right hand Hospitalization History [facility] for chest pain 10/2010 Hospitalization History [facility] for chest pain 01/2012 Hospitalization History Viral Lung Infection-ER visit 11/2017
--- OUTSIDE RECORDS SUMMARY | 2019-03-06 03:49 | XMS REPORT ---
Author Author AGUILAR DUBOIS Organization [facility] Address [address] [place] [address] Care Team Providers Care Pals Specialist Name Role Phone SHERLYMATHEWAGUILAR Unavailable PROBLEMS Type Condition ICD9-CM Code XPP32-ZA Code Onset Dates Condition Status SNOMED Code Problem GERD without esophagitis K21.9 Active 701562815 Problem Pre-diabetes R73.03 Active 481918432 Problem Post menopausal syndrome N95.1 Active 368778108 Problem Lumbago with sciatica, right side M54.41 Active 850950865 Problem Morbid (severe) obesity due to excess calories E66.01 Active 589995702 Problem Anxiety F41.9 Active 71528720 Problem Tobacco abuse counseling Z71.6 Active 859193625 Problem Tobacco abuse Z72.0 Active 311752547 Problem Body mass index (BMI) of 45.0-49.9 in adult Z68.42 Active 548244315 Problem Mixed hyperlipidemia E78.2 Active 375702882 ALLERGIES No Information ENCOUNTERS Encounter Location Date Diagnosis [facility] [id number] [place] [address] 09322- 3132 Jul, Pre-diabetes R73.03 ; Anxiety F41.9 ; Body mass index (BMI) of 45.0-49.9 in adult Z68.42 and Morbid (severe) obesity due to excess calories E66.01 [facility] [id number] [address] 9[address] Jul, [facility] [id number] [place] [address] 65219- 9373 Jul, [facility] [id number] [place] [address] 36750- 4502 Jun, [facility] [id number] [place] [address] 41490- 5953 Jun, [place] [id number] [place] [address] 68960- 5918 Apr, Pre-diabetes R73.03 ; GERD without esophagitis K21.9 ; Tobacco abuse Z72.0 ; Tobacco abuse counseling Z71.6 ; Morbid obesity due to excess calories E66.01 ; Mixed hyperlipidemia E78.2 and Preoperative evaluation to rule out surgical contraindication Z01.818 [place] [id number] [place] [address] 03257- 3972 March, [place] [id number] [place] [address] 56412- 3791 Jan, [place] [id number] [place] [address] 55911- 2222 Jan, Post menopausal syndrome N95.1 [place] [id number] [place] [address] 91584- 2948 Dec, Pre-diabetes R73.03 ; GERD without esophagitis K21.9 ; Post menopausal syndrome N95.1 ; Tobacco abuse Z72.0 ; Tobacco abuse counseling Z71.6 ; Morbid obesity due to excess calories E66.01 and Lumbago with sciatica, right side M54.41 [place] [id number] [place] [address] 07897- 2633 Nov, [place] [id number] [place] [address] 32744- 0729 Oct, Breast lump on left side at 6 o'clock position N63.20 [place] [id number] [place] [address] 77057- 3787 Aug, [place] [id number] [place] [address] 21269- 2020 Jul, [place] [id number] [place] [address] 41860- 9685 Jul, Morbid obesity due to excess calories E66.01 and Diabetes E11.9 [place] [id number] [address] 5887 Jul, Morbid obesity due to excess calories E66.01 and Diabetes E11.9 [facility] [address] [address] 7984 Jun, Morbid obesity due to excess calories E66.01 [facility] [id number] [place] [address] 71694- 8585 May, Wrist tendonitis M77.8 and Lumbago with sciatica, right side M54.41 [facility] [id number] [place] [address] 82139- 9656 Apr, Diabetes E11.9 and Morbid obesity due to excess calories E66.01 [facility] [address] [address] 3320 March, [facility] [id number] [place] [address] 11434- 6223 March, [facility] [id number] [place] [address] 26937- 4367 Nov, [facility] [id number] [place] [address] 01754- 6735 Nov, [facility] [id number], [place] [address]- 5092 Oct, [facility] [id number] [address]- 8569 Oct, Morbid obesity due to excess calories E66.01 [facility] [address] [address] 1888 Oct, Lumbago with sciatica, right side M54.41 ; Morbid obesity due to excess calories E66.01 and Mood disorder F39 [facility] [address] [address]- 1458 Oct, [facility] [id number] [place] [address] 81055- 7165 Oct, [facility] [id number], [place] [address]- 1248 Sep, [facility] [id number] [place] [address] 73721- 7652 Jul, [facility] [id number] [place] [address] 30297- 5465 Jul, [facility] [id number] [place] [address] 45624- 3816 Jul, [facility] [id number] [place] [address] 72060- 7977 Jul, [facility] [id number] [place] [address] 11136- 7589 Jun, Other chronic pain G89.29 and Pain in left shoulder M25.512 [facility] [id number] [place] [address] 11180- 9814 May, [facility] [id number] [place] [address] 74473- 9259 May, Wrist tendonitis M77.8 ; Lumbago with sciatica, right side M54.41 and Other chronic pain G89.29 [facility] [id number], [place] [address]- 7280 May, [facility] [id number] [place] [address] 58214- 3444 Apr, [facility] [id number] [place] [address] 81278- 0722 Apr, Generalized anxiety disorder F41.1 [facility] [id number] [place] [address] 33889- 4306 Apr, [facility] [id number], [place] [address]- 5047 Apr, Generalized anxiety disorder F41.1 [facility] [id number] [address]- 4857 March, [facility] [id number] [place] [address] 18734- 8114 March, Acute pain of left shoulder M25.512 and Left wrist pain M25.532 [facility] [id number] [place] [address] 68748- 3398 Feb, [facility] [id number] [place] [address] 19503- 0123 Jan, Family history of diabetes mellitus Z83.3 [facility] [id number] [place] [address] 32629- 0866 Jan, [facility] [id number] [place] [address] 59797- 8332 Jan, [facility] [id number] [place] [address] 27596- 1194 Dec, Family history of diabetes mellitus Z83.3 and Anxiety F41.9 [facility] [address] [address]- 1322 Nov, [facility] [id number] [place] [address] 29290- 4166 Nov, [facility] [id number], [place] [address] -1044 Nov, Streptococcal pharyngitis J02.0 ; Sore throat J02.9 and Acute diarrhea R19.7 [facility] [id number], [place] [address]- 0534 Oct, [facility] [id number] [place] [address] 93523- 6613 Oct, [facility] [id number], [place] [address]- 8858 Oct, Generalized anxiety disorder 300.02 [facility] [id number] [place] [address] 13172- 3326 Sep, [facility] [id number] 3009 Aug, [facility] [id number] [address]- 8296 Jul, [facility] [address] [id number] Jul, Dental examination V72.2 [facility] [id number] [place] [address] 89377- 7879 Jun, [facility] [id number] [place] [address] 59161- 1950 Jun, [facility] [id number] [place] [address] 193503- 3111 May, Generalized anxiety disorder 300.02 ; Abnormal weight gain 783.1 ; Edema 782.3 and Family history of diabetes mellitus V18.0 [facility] [address], [place] [address]- 2445 May, [facility] [id number] [place] [address] 17119- 5739 May, [facility] [address], [place] [address]- 3621 Apr, [facility] [id number], [place] [address]- 5485 March, [facility] [id number] 4003 Feb, [facility] [id number], [place] [address]- 2176 Feb, [facility] [address] [address]- 8306 Jan, [facility] [id number] 1981 Jan, [facility] [place] [facility] [id number] [place] [address]- 3204 Jan, 2014 [facility] [place] [facility] [address] [id number] [place] [address]- 9711 Jan, [facility] [place] [facility] [address] [id number] [place] [address]- 2996 Dec, [facility] [place] [facility] [address] [id number] [place] [address]- 4277 Dec, [facility] [place] [facility] [address] [id number] [place] [address]- 0098 Nov, [facility] [place] [facility] [address] [id number] [place] [address]- 7916 Nov, [facility] [place] [facility] [address] [id number] [place] [address]- 6332 Oct, [facility] [place] [facility] [address] [id number] [place] [address]- 5924 Oct, [facility] [place] [facility] [address] [id number] [place] [address]- 7749 Sep, [facility] [place] [facility] [address] [id number] [place] [address]- 4312 Sep, [facility] [place] [facility] [address] [id number] [place] [address]- 3884 Sep, [facility] [place] [facility] [address] [id number] [place] [address]- 6910 Sep, [facility] [place] [facility] [address] [id number] [place] [address]- 9006 Jul, [facility] [place] [facility] [address] [id number] [place] [address]- 1136 Jul, [facility] [place] [facility] [address] [id number] [place] 2546 Jul, [facility] [place] [facility] [address] [id number] [place] [address]- 9160 Jul, [facility] [place] [facility] [address] [id number] [place] [address]- 9377 Jun, [facility] [place] [facility] [address] [id number] [place] [address]- 7950 Jun, [facility] [place] [facility] [address] [id number] [place] [address]- 1006 Jun, [facility] [place] [facility] [address] [id number] [place] [address]- 8273 Jun, [facility] [place] [facility] [address] [id number] [place] [address]- 0952 Jun, [facility] [place] [facility] [address] [id number] [place] [address]- 6838 Jun, [facility] [place] [facility] [address] [id number] [place] [address]- 2122 Jun, [facility] [place] [facility] [address] [id number] [place] [address]- 2377 Jun, [facility] [place] [facility] [address] [id number] [place] [address]- 0879 May, [facility] [place] [facility] [address] [id number] [place] [address]- 4661 May, [facility] [place] [facility] [address] [id number] [place] [address]- 9401 May, [facility] [place] [facility] [address] [id number] [place] [address]- 4141 May, [facility] [place] [facility] [address] [id number] [place] [address]- 1351 May, [facility] [place] [facility] [address] [id number] [place] [address]- 4274 Apr, [facility] [place] [facility] [address] [id number] [place] [address]- 5707 Apr, [facility] [place] [facility] [address] [id number] [place] [address]- 3675 March, [facility] [address] [id number] [place] [address]- 3197 March, [facility] [address] [id number] [place] [address]- 2553 March, [facility] [address] [id number] [place] [address]- 0036 March, [facility] [address] [place] [id number] March [facility] [address] [id number] [place] [address]- 5699 March, [facility] [address] [id number] [place] [address]- 9800 Feb, [facility] [address] [id number] [place] [address]- 6790 Feb, [facility] [address] [id number] [place] [address]- 4544 Feb, [facility] [address] [id number] [place] [address]- 0355 Feb, [facility] [address] [id number] [place] [address]- 9462 Feb, [facility] [address] [id number] [place] [address]- 2795 16 Feb, 2014 [facility] [place] [facility] [address] [id number] [place] [address]- 2481 15 Feb, 2014 [facility] [place] [facility] [address] [id number] [place] [address]- 3964 15 Feb, 2014 [facility] [place] [facility] [address] [id number] [place] [address]- 5127 10 Feb, 2014 [facility] [place] [facility] [address] [id number] [place] [address]- 0972 Feb, [facility] [place] [facility] [address] [id number] [place] [address]- 0019 Feb, [facility] [address] [id number] [place] [address]- 7957 Feb, [facility] [place] [facility] [address] [id number] [place] [address]- 5196 Feb, [facility] [address] [id number] [place] [address]- 5228 Feb, [facility] [place] [facility] [address] [id number] [place] [address]- 6432 Jan, [facility] [place] [facility] [address] [id number] [place] [address]- 7106 Jan, [facility] [place] [facility] [address] [id number] [place] [address]- 8873 Dec, [facility] [place] [facility] [address] [id number] [place] [address]- 3228 Dec, [facility] [address] [id number] [place] [address]- 1483 Dec, [facility] [place] [facility] [address] [id number] [place] [address]- 8728 Dec, [facility] [address] [facility] [id number] [place] [address]- 5062 Nov, [facility] [place] [facility] [address] [id number] [place] [address]- 8841 Nov, [facility] [place] [facility] [address] [id number] [place] [address]- 8173 Oct, [facility] [place] [facility] [address] [id number] [place] 0078 Oct, [facility] [place] [facility] [address] [id number] [place] [address]- 0576 Oct, [facility] [place] [facility] [address] [facility] [id number] [place] [address]- 6329 Oct, [facility] [place] [facility] [address] [id number] [place] [address]- 6109 Sep, [facility] [place] [facility] [address] [id number] [place] [address]- 9456 Sep, [facility] [place] [facility] [address] [id number] [place] [address]- 2203 Sep, [facility] [place] [facility] [address] [id number] [place] [address]- 7871 Sep, [facility] [place] [facility] [address] [id number] [place] [address]- 7581 Jul, [facility] [place] [facility] [address] [id number] [place] [address]- 0684 Jul, [facility] [place] [facility] [address] [id number] [place] [address]- 7694 Jun, [facility] [place] [facility] [address] [id number] [place] [address]- 5613 Jun, [facility] [place] [facility] [address] [id number] [place] [address]- 6723 Jun, [facility] [place] [facility] [address] [id number] [place] [address]- 3674 May, [facility] [place] [facility] [address] [id number] [address]- 5166 May, [facility] [place] [facility] [address] [id number], [place] [address]- 6134 Apr, [facility] [place] [facility] [address] [id number] [place] [address]- 3094 Apr, [facility] [place] [facility] [address] [id number] [place] [address]- 5810 17 Apr, 2013 [facility] [place] [facility] [address] [id number] [place] [address]- 2701 Apr, [facility] [place] [facility] [address] [id number] [place] [address]- 1112 Apr, [facility] [address] [id number] [place] [address]- 2259 Apr, [facility] [place] [facility] [address] [id number] [place] [address]- 9493 March, [facility] [address] [id number] [place] [address]- 4782 Feb, [facility] [place] [facility] [address] [id number] [place] [address]- 3874 Feb, [facility] [address] [id number] [place] [address]- 4900 Feb, [facility] [place] [facility] [address] [id number] [place] [address] Feb, [facility] [address] [id number] [place] [address] Feb, [facility] [address] [id number] [place] [address] Jan, [facility] [place] [facility] [address] [id number] [place] [address] Jan, [facility] [place] [facility] [address] [facility] [id number] [place] [address] Jan, [facility] [place] [facility] [address] [id number] [place] [address] 28 Dec, 2012 [facility] [place] [facility] [address] [id number] [place] [address] 18 Dec, 2012 [facility] [place] [facility] [address] [id number] [place] [address] 15 Dec, 2012 [facility] [place] [facility] [address] [id number] [place] [address] 08 Dec, 2012 [facility] [place] [facility] [address] [id number] [place] [address] Dec, [facility] [place] [facility] [address] [id number] [place] [address] Nov, [facility] [place] [facility] [address] [id number] [place] [address] Nov, [facility] [place] [facility] [address] [id number] [place] [address] Oct, [facility] [place] [facility] [address] [id number] [place] [address] Oct, [facility] [place] [facility] [address] [id number] [place] [address] Oct, [facility] [place] [facility] [address] [id number] [place] [address] Oct, [facility] [place] [facility] [address] [id number] [place] [address] Sep, [facility] [place] [facility] [address] [id number] [place] [address] Sep, [facility] [place] [facility] [address] [id number] [place] [address] 28[address] Sep, [facility] [place] [facility] [address] [facility] [id number], [place] [address] Sep, [facility] [place] [facility] [address] [facility] [id number], [place] [address] Aug, [facility] [place] [facility] [address] [id number], [place] [address] Aug, [facility] [place] [facility] [address] [id number] [place] [address]101 Aug, [facility] [place] [facility] [address] [id number], [place] [address] Aug, [facility] [place] [facility] [address] [facility] [id number], [place] [address] Aug, [facility] [place] [facility] [address] [id number], [place] [address] Aug, [facility] [address] [id number] [place] [address] Aug, [facility] [place] [facility] [address] [id number] [place] [address] Jun, [facility] [address] [id number] [place] [address] Jun, [facility] [place] [facility] [address] [id number] [place] [address] May, [facility] [address] [id number] [place] [address] 8967 May, [facility] [place] [facility] [address] [id number] [place] [address] May, [facility] [address] [id number] [place] [address] 37[address] May, [facility] [address] [id number] [place] [address] May, [facility] [address] [id number] [place] [address] May, [facility] [address] [id number] [id number] Apr, [facility] [address] [id number], [place] [address] Apr, [facility] [place] [facility] [address] [id number], [place] [address] Feb, [facility] [place] [facility] [address] [id number] [place] [address] Jan, [facility] [place] [facility] [address] [id number] [place] [address] 0966 Jan, [facility] [place] [facility] [address] [id number] [place] [address]36 Jan, [facility] [place] [facility] [address] [facility] [id number], [place] [address] Jan, [facility] [address] [facility] [id number], [place] [address] Jan, [facility] [address] [facility] [id number][place] [address] Jan, [facility] [address] [facility] [id number], [place] [address] Jan, [facility] [address] [facility] [id number], [place] [address]46 Jan, [facility] [address] [facility] [id number], [place] [address] Dec, [facility] [address] [facility] [id number], [place] [address] Sep, [facility] [id number], [place] [address] Aug, [facility] [id number], [place] [address] March, [facility] [id number], [place] [address] Oct, [facility] [id number], [place] [address] Oct, [facility] [id number], [place] [address] Oct, [facility] [id number], [place] [address] Aug, [facility] [id number] [address] Aug, [facility] [id number], [place] [address] Oct, IMMUNIZATIONS No Known Immunizations SOCIAL HISTORY Never Assessed REASON FOR VISIT Medication refill request PLAN OF CARE VITAL SIGNS MEDICATIONS No Known Medications RESULTS No Results PROCEDURES No Known [...]
--- OUTSIDE RECORDS SUMMARY | 2019-03-06 03:50 | XMS REPORT ---
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 Name Role Phone SHERLYMATHEWAGUILAR Unavailable PROBLEMS Type Condition ICD9-CM Code IPZ38-VI Code Onset Dates Condition Status SNOMED Code Problem Morbid obesity due to excess calories E66.01 Active 682814943 Problem Lumbago with sciatica, right side M54.41 Active 753304528 Problem Mixed hyperlipidemia E78.2 Active 907694457 Problem Tobacco abuse counseling Z71.6 Active 204275437 Problem Pre-diabetes R73.03 Active 197197892 Problem Post menopausal syndrome N95.1 Active 695503293 Problem Tobacco abuse Z72.0 Active 872026270 Problem GERD without esophagitis K21.9 Active 443466638 ALLERGIES Substance Reaction Event Type Date Status Niacin Unknown Drug Allergy Apr, Active ENCOUNTERS Encounter Location Date Diagnosis [place] [id number] [place] [address] 36216- 7493 Jul, [facility] [id number] [place] [address] 34585- 5667 Jun, [place] [id number] [place] [address] 84153- 9022 Jun, [facility] [id number] [place] [address] 30019- 7335 Apr, Pre-diabetes R73.03 ; GERD without esophagitis K21.9 ; Tobacco abuse Z72.0 ; Tobacco abuse counseling Z71.6 ; Morbid obesity due to excess calories E66.01 ; Mixed hyperlipidemia E78.2 and Preoperative evaluation to rule out surgical contraindication Z01.818 [facility] [id number] [place] [address] 99224- 6316 March, [place] [id number] [place] [address] 20894- 3474 Jan, [place] [address] [address]- 1269 Jan, Post menopausal syndrome N95.1 [place] [id number] [place] [address] 10737- 5307 Dec, Pre-diabetes R73.03 ; GERD without esophagitis K21.9 ; Post menopausal syndrome N95.1 ; Tobacco abuse Z72.0 ; Tobacco abuse counseling Z71.6 ; Morbid obesity due to excess calories E66.01 and Lumbago with sciatica, right side M54.41 [place] [id number] [place] [address] 48391- 2807 Nov, [place] [id number] [place] [address] 73737- 7801 Oct, Breast lump on left side at 6 o'clock position N63.20 [place] [id number] [place] [address] 27074- 3789 Aug, [place] [id number] [place] [address] 00022- 6698 Jul, [place] [id number] [place] [address] 65706- 4415 Jul, Morbid obesity due to excess calories E66.01 and Diabetes E11.9 [place] [id number] [place] [address] 10986- 9944 Jul, Diabetes E11.9 and Morbid obesity due to excess calories E66.01 [place] [id number] [place] [address] 65521- 5634 14 Jun, 2017 Morbid obesity due to excess calories E66.01 [place] [id number] [place] [address] 03641- 7703 13 May, 2017 Wrist tendonitis M77.8 and Lumbago with sciatica, right side M54.41 [facility] [address], [place] [address]- 9659 Apr, Diabetes E11.9 and Morbid obesity due to excess calories E66.01 [facility] [address], [place] [address]- 5874 March, [facility] [id number] [place] [address] 41123- 6485 March, [facility] [id number] [place] [address] 88425- 1542 Nov, [facility] [id number] [place] [address] 72819- 4102 Nov, [facility] [id number] [place] [address] 45385- 6106 Oct, [facility] [id number] [place] [address] 07250- 8662 Oct, Morbid obesity due to excess calories E66.01 [facility] [id number] [place] [address] 26777- 1438 Oct, Lumbago with sciatica, right side M54.41 ; Morbid obesity due to excess calories E66.01 and Mood disorder F39 [facility] [address], [place] [address]- 4926 Oct, [facility] [id number], [place] [address]- 7066 Oct, [facility] [address], [place] [address]- 3530 Sep, [facility] [id number] [place] [address] 871440- 6394 Jul, [facility] [address], [place] [address]- 2248 Jul, [facility] [id number] [place] [address] 73678- 1130 Jul, [facility] [id number] [place] [address] 95665- 5967 Jul, [facility] [id number] [place] [address] 90632- 7719 Jun, Other chronic pain G89.29 and Pain in left shoulder M25.512 [facility] [id number] [place] [address] 88623- 0878 May, [facility] [id number] [place] [address] 33813- 4814 May, Wrist tendonitis M77.8 ; Lumbago with sciatica, right side M54.41 and Other chronic pain G89.29 [facility] [id number] [place] [address] 73338- 9011 May, [facility] [id number] [place] [address] 20712- 3666 Apr, [facility] [id number] [place] [address] 10171- 6852 Apr, Generalized anxiety disorder F41.1 [facility] [id number] [place] [address] 12832- 9750 Apr, [facility] [id number] [place] [address] 78145- 9419 Apr, Generalized anxiety disorder F41.1 [facility] [id number] [place] [address] 01424- 1365 March, [facility] [id number] [place] [address] 28525- 8785 March, Acute pain of left shoulder M25.512 and Left wrist pain M25.532 [facility] [id number] [place] [address] 08099- 8579 Feb, [facility] [id number] [place] [address] 00987- 1696 Jan, Family history of diabetes mellitus Z83.3 [facility] [address], [place] [address]- 3615 Jan, [facility] [id number] [place] [address] 48763- 9059 Jan, [facility] [id number] [place] [address] 15135- 7098 Dec, Family history of diabetes mellitus Z83.3 and Anxiety F41.9 [facility] [id number] [place] [address] 77072- 5657 Nov, [facility] [id number] [place] [address] 98670- 2817 Nov, [facility] [id number] [place] [address] 73100 -7424 Nov, Streptococcal pharyngitis J02.0 ; Sore throat J02.9 and Acute diarrhea R19.7 [facility] [address], [place] [address]- 7944 Oct, [facility] [id number] [place] [address] 06765- 5422 Oct, [facility] [id number] [place] [address] 14795- 3431 Oct, Generalized anxiety disorder 300.02 [facility] [id number] [place] [address] 55499- 2000 Sep, [facility] [address], [place] [address]- 8659 Aug, [facility] [id number] [place] [address] 39832- 8802 Jul, [facility] [id number] [place] [address] [id number] Jul, Dental examination V72.2 [facility] [id number] [place] [address] 87339- 2207 Jun, [facility] [address], [place] [address]- 4582 Jun, [facility] [address], [place] [address]- 2556 May, Generalized anxiety disorder 300.02 ; Abnormal weight gain 783.1 ; Edema 782.3 and Family history of diabetes mellitus V18.0 [facility] [address], [place] [address]- 2106 May, [facility] [address], [place] [address]- 3319 May, [facility] [address], [place] [address]- 5406 Apr, [facility] [id number] [address]- 6126 March, [facility] [address], [place] [address]- 3068 Feb, [facility] [address], [place] [address]- 4363 Feb, [facility] [address], [place] [address]- 8736 Jan, [facility] [address], [place] [address]- 9406 Jan, [facility] [address], [place] [address]- 9716 Jan, [facility] [id number], [place] [address]- 9826 Jan, [facility] [address], [place] [address]- 9256 Dec, [facility] [id number], [place] [address]- 6396 Dec, [facility] [address] [place] [address]- 3854 Nov, [facility] [place] [facility] [address] [id number] [place] [address]- 8072 Nov, [facility] [place] [facility] [address] [id number] [place] [address]- 1008 Oct, [facility] [place] [facility] [address] [id number] [place] [address]- 8568 Oct, [facility] [place] [facility] [address] [id number] [place] [address]- 7569 Sep, [facility] [place] [facility] [address] [id number] [place] [address]- 0583 Sep, [facility] [place] [facility] [address] [id number] [place] [address]- 8768 Sep, [facility] [place] [facility] [address] [id number] [place] [address]- 2158 Sep, [facility] [place] [facility] [address] [id number] [place] [address]- 5290 Jul, [facility] [place] [facility] [address] [id number] [place] [address]- 9808 Jul, [facility] [place] [facility] [address] [id number] [place] [address]- 8216 Jul, [facility] [place] [facility] [address] [id number] [place] [address]- 8178 Jul, [facility] [place] [facility] [address] [id number] [place] [address]- 7973 Jun, [facility] [place] [facility] [address] [id number] [place] [address]- 4030 Jun, [facility] [place] [facility] [address] [id number] [place] [address]- 5819 Jun, [facility] [place] [facility] [address] [id number] [place] [address]- 2205 Jun, [facility] [place] [facility] [address] [id number] [place] [address]- 5205 Jun, [facility] [address] [id number] [place] [address]- 5943 Jun, [facility] [address] [id number] [place] [address]- 0803 Jun, [facility] [address] [id number] [place] [address]- 7672 Jun, [facility] [address] [id number] [place] [address]- 1246 May, [facility] [address] [id number] [place] [address]- 8655 May, [facility] [address] [id number] [place] [address]- 9527 May, [facility] [address] [id number] [place] [address]- 7648 May, [facility] [address] [id number] [place] [address]- 6189 May, [facility] [address] [id number] [place] [address]- 8516 Apr, [facility] [address] [id number] [place] [address]- 8244 Apr, [facility] [address] [id number] [place] [address]- 7985 March, [facility] [address] [id number] [place] [address]- 8183 March, [facility] [address] [id number] [place] [address]- 6586 March, [facility] [address] [id number] [place] [address]- 7186 March, [facility] [address] [place] [id number] March [facility] [address] [id number] [place] [address]- 6156 March, [facility] [place] [facility] [address] [id number] [place] [address]- 1346 Feb, [facility] [place] [facility] [address] [id number] [place] [address]- 5216 Feb, [facility] [place] [facility] [address] [id number] [place] [address]- 7286 Feb, [facility] [place] [facility] [address] [id number] [place] [address]- 1063 Feb, [facility] [place] [facility] [address] [id number] [place] [address]- 0339 Feb, [facility] [place] [facility] [address] [id number] [place] [address]- 9288 Feb, [facility] [place] [facility] [address] [id number] [place] [address]- 5599 Feb, [facility] [place] [facility] [address] [id number] [place] [address]- 6647 Feb, [facility] [place] [facility] [address] [id number] [place] [address]- 1969 Feb, [facility] [place] [facility] [address] [id number] [place] [address]- 5331 Feb, [facility] [place] [facility] [address] [id number] [place] [address]- 6229 Feb, [facility] [place] [facility] [address] [id number] [place] [address]- 5498 Feb, [facility] [place] [facility] [address] [id number] [place] [address]- 0777 Feb, [facility] [place] [facility] [address] [id number] [place] [address]- 1760 Feb, [facility] [place] [facility] [address] [id number] [place] [address]- 7609 Jan, [facility] [address] [id number] [place] [address]- 7430 Jan, [facility] [place] [facility] [address] [id number] [place] [address]- 7770 Dec, [facility] [place] [facility] [address] [id number] [place] [address]- 8450 Dec, [facility] [place] [facility] [address] [id number] [place] [address]- 9750 Dec, [facility] [place] [facility] [address] [id number] [place] [address]- 9496 Dec, [facility] [place] [facility] [address] [id number] [place] [address]- 0006 Nov, [facility] [address] [facility] [id number] [place] [address]- 6531 Nov, [facility] [place] [facility] [address] [id number] [place] [address]- 1298 Oct, [facility] [place] [facility] [address] [id number] [place] [address]- 1889 Oct, [facility] [place] [facility] [address] [facility] [id number] [place] [address]- 2846 Oct, [facility] [place] [facility] [address] [id number] [place] [address]- 8623 Oct, [facility] [place] [facility] [address] [id number] [place] [address]- 7300 Sep, [facility] [place] [facility] [address] [id number] [place] [address]- 1175 Sep, [facility] [place] [facility] [address] [id number] [place] [address]- 5620 Sep, [facility] [place] [facility] [address] [facility] [id number] [place] 6209 Sep, [facility] [place] [facility] [address] [id number] [place] [address]- 6072 04 Jul, 2013 [facility] [place] [facility] [address] [id number] [place] [address]- 4405 Jul, [facility] [place] [facility] [address] [id number] [place] [address]- 4415 Jun, [facility] [place] [facility] [address] [id number] [place] [address]- 9958 Jun, [facility] [place] [facility] [address] [id number] [place] [address]- 7826 Jun, [facility] [place] [facility] [address] [id number] [place] [address]- 5292 May, [facility] [place] [facility] [address] [id number] [place] [address]- 1396 May, [facility] [place] [facility] [address] [id number] [place] [address]- 0932 Apr, [facility] [place] [facility] [address] [id number] [place] [address]- 2074 Apr, [facility] [place] [facility] [address] [id number] [place] [address]- 4882 Apr, [facility] [place] [facility] [address] [id number] [place] [address]- 3548 Apr, [facility] [place] [facility] [address] [id number] [place] [address]- 6865 Apr, [facility] [place] [facility] [address] [id number] [place] [address]- 7625 Apr, [facility] [place] [facility] [address] [id number] [place] [address]- 0102 March, [facility] [place] [facility] [address] [id number] [place] [address]- 1537 Feb, [facility] [place] [facility] [address] [id number] [place] [address]- 9118 Feb, [facility] [address] [id number] [place] [address]- 2758 Feb, [facility] [place] [facility] [address] [id number] [place] [address]- 1986 Feb, [facility] [place] [facility] [address] [facility] [id number] [place] [address]- 8041 Feb, [facility] [place] [facility] [address] [id number] [place] [address]- 0690 Jan, [facility] [place] [facility] [address] [id number] [place] [address]- 3271 Jan, [facility] [place] [facility] [address] [id number] [place] [address]- 7143 Jan, [facility] [place] [facility] [address] [id number] [place] [address]- 0076 Dec, [facility] [place] [facility] [address] [id number] [place] [address]- 5414 Dec, [facility] [place] [facility] [address] [id number] [place] [address]- 8858 Dec, [facility] [place] [facility] [address] [id number] [place] [address]- 1398 Dec, [facility] [place] [facility] [address] [id number] [place] [address]- 5406 Dec, [facility] [place] [facility] [address] [id number] [place] [address] 2546 Nov, [facility] [place] [facility] [address] [id number] [place] [address]- 2546 Nov, [facility] [place] [facility] [address] [id number] [place] [address]- 2546 Oct, [facility] [place] [facility] [address] [id number] [place] [address]- 2546 Oct, [facility] [place] [facility] [address] [id number] [place] [address]- 2546 Oct, [facility] [place] [facility] [address] [id number] [place] [address]- 9696 Oct, [facility] [place] [facility] [address] [id number] [place] [address]- 2546 Sep, [facility] [place] [facility] [address] [id number] [place] [address]- 2546 Sep, [facility] [place] [facility] [address] [id number] [place] [address]- 2546 Sep, [facility] [place] [facility] [address] [id number] [place] [address]- 2546 Sep, [facility] [place] [facility] [address] [id number] [place] [address]- 7498 Aug, [facility] [place] [facility] [address] [id number] [place] [address]- 7827 Aug, [facility] [place] [facility] [address] [id number] [place] [address]- 6621 Aug, [facility] [place] [facility] [address] [id number] [place] [address]- 4641 Aug, [facility] [place] [facility] [address] [id number] [place] [address] Aug, [facility] [place] [facility] [address] [id number] [place] [address] Aug, [facility] [place] [facility] [address] [id number] [place] [address] Aug, [facility] [place] [facility] [address] [id number] [place] [address] Jun, [facility] [place] [facility] [address] [id number] [place] [address] Jun, [facility] [place] [facility] [address] [id number] [place] [address] May, [facility] [address] [id number] [place] [address] May, [facility] [place] [facility] [address] [id number] [place] [address] May, [facility] [address] [id number] [place] [address] May, [facility] [address] [id number] [place] [address] May, [facility] [address] [id number] [place] [address] May, [facility] [address] [facility] [address] [id number] [place] [id number] Apr, [facility] [address] [id number] [place] [address] Apr, [facility] [address] [id number] [place] [address] Feb, [facility] [address] [id number] [place] [address] Jan, [facility] [address] [id number] [place] [address] Jan, [facility] [address] [id number] [place] [address] Jan, [facility] [place] [facility] [address] [id number] [place] [address] Jan, [facility] [place] [facility] [address] [id number] [place] [address] Jan, [facility] [place] [facility] [address] [id number] [place] [address] Jan, [facility] [place] [facility] [address] [id number] [place] [address] Jan, [facility] [place] [facility] [address] [id number] [address] Jan, [facility] [id number] [address] Dec, [facility] [id number] [address] Sep, [facility] [id number], [place] [address] Aug, [facility] [id number] [place] [id number] March, [facility] [id number] [place] [address] Oct, [facility] [id number] [place] [id number] Oct, [facility] [id number] [place] [address] Oct, [facility] [id number], [place] [address] Aug, [facility] [id number], [place] [address] Aug, [facility] [id number] [id number] Oct, IMMUNIZATIONS No Known Immunizations SOCIAL HISTORY Never Assessed REASON FOR VISIT Diabetes-TAY Flores, Needing the form that the pt has talked to you about, wants to talk about changing the metformin to Janumet, wants to get something to help her focus and something besides chantix to help her quit smoking PLAN OF CARE Activity Details Follow Up 3 Months, prn Reason:CHM/Pre-diabetes VITAL SIGNS Height 59.5 in 2018-05-08 Weight 237.2 lbs 2018-05-08 Temperature 98.1 degrees Fahrenheit 2018-05-08 Heart Rate 72 bpm 2018-05-08 Respiratory Rate 20 2018-05-08 BMI 47.10 kg/m2 2018-05-08 Blood pressure systolic 128 mmHg 2018-05-08 Blood pressure diastolic 76 mmHg 2018-05-08 MEDICATIONS Medication Instructions Dosage Frequency Start Date End Date Duration Status Metformin HCl 500 MG TAKE ONE TABLET BY MOUTH TWICE DAILY WITH MEALS 30 Active Hydrochlorothiazide 25 MG TAKE ONE TABLET BY MOUTH IN THE MORNING 30 Active Nicoderm CQ 21 MG/24HR Transdermal Once a day 1 patch to skin 24h Apr, May, 30 day(s) Active Omeprazole 20 MG TAKE ONE CAPSULE BY MOUTH TWICE DAILY 30 Active Aspirin 81 MG Orally Once a day 1 tablet 24h Active Ibuprofen 800 MG Orally PRN 1 tablet with food or milk Active Celebrex 200 MG Orally Once a day 1 capsule with food 24h Active Atorvastatin Calcium 20 MG TAKE ONE TABLET BY MOUTH ONCE DAILY 30 Active RESULTS No Results PROCEDURES Procedure Date Ordered Result Body Site COMPLETE CBC W/AUTO DIFF WBC May 08, 2018 COMPREHEN METABOLIC PANEL May 08, 2018 LIPID PANEL May 08, 2018 ASSAY THYROID STIM HORMONE May 08, 2018 VENIPUNCT, ROUTINE* May 08, 2018 GLYCATED HEMOGLOBIN TEST May 08, 2018 INSTRUCTIONS MEDICATIONS ADMINISTERED No Known Medications [...]
--- OUTSIDE RECORDS SUMMARY | 2019-03-06 03:50 | XMS REPORT ---
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 [employer] Name Role Phone SHERLYMATHEWAGUILAR Unavailable PROBLEMS Type Condition ICD9-CM Code HEZ34-ZT Code Onset Dates Condition Status SNOMED Code Problem Morbid obesity due to excess calories E66.01 Active 243973315 Problem Lumbago with sciatica, right side M54.41 Active 474661237 Problem Mixed hyperlipidemia E78.2 Active 481503669 Problem Tobacco abuse counseling Z71.6 Active 320523584 Problem Pre-diabetes R73.03 Active 331165806 Problem Post menopausal syndrome N95.1 Active 778838276 Problem Tobacco abuse Z72.0 Active 052410830 Problem GERD without esophagitis K21.9 Active 507517535 ALLERGIES No Information ENCOUNTERS Encounter Location Date Diagnosis [facility] [id number] [place] [address] 49537- 9040 Jul, [facility] [address] [address]- [address] Jul, [facility] [id number] [place] [address] 50052- 4179 Jun, [facility] [id number] [place] [address] 43137- 2679 Jun, [facility] [id number] [place] [address] 06429- 5682 Apr, Pre-diabetes R73.03 ; GERD without esophagitis K21.9 ; Tobacco abuse Z72.0 ; Tobacco abuse counseling Z71.6 ; Morbid obesity due to excess calories E66.01 ; Mixed hyperlipidemia E78.2 and Preoperative evaluation to rule out surgical contraindication Z01.818 [facility] [address] [place] [address] March, [facility] [id number] [place] [address] 61521- 3890 Jan, [facility] [id number] [place] [address] 40276- 6593 Jan, Post menopausal syndrome N95.1 [facility] [id number] [place] [address] 41894- 0672 Dec, Pre-diabetes R73.03 ; GERD without esophagitis K21.9 ; Post menopausal syndrome N95.1 ; Tobacco abuse Z72.0 ; Tobacco abuse counseling Z71.6 ; Morbid obesity due to excess calories E66.01 and Lumbago with sciatica, right side M54.41 [facility] [id number] [place] [address] 93807- 6578 Nov, [facility] [id number] [place] [address] 26603- 0082 Oct, Breast lump on left side at 6 o'clock position N63.20 [facility] [id number] [place] [address] 16710- 5872 Aug, [facility] [id number] [place] [address] 87115- 7680 Jul, [facility] [id number] [place] [address] 49166- 2531 Jul, Morbid obesity due to excess calories E66.01 and Diabetes E11.9 [facility] [id number] [place] [address] 92914- 7559 Jul, Morbid obesity due to excess calories E66.01 and Diabetes E11.9 [facility] [id number] [place] [address] 05672- 5411 Jun, Morbid obesity due to excess calories E66.01 [facility] [id number] [place] [address] 84588- 1856 May, Wrist tendonitis M77.8 and Lumbago with sciatica, right side M54.41 [facility] [address] [address] 0873 Apr, Diabetes E11.9 and Morbid obesity due to excess calories E66.01 [facility] [address] [address] 5533 March, [facility] [id number] [place] [address] 65349- 5056 March, [facility] [id number] [place] [address] 38513- 3696 Nov, [facility] [id number] [place] [address] 59144- 8686 Nov, [facility] [id number] [address] 4460 Oct, [facility] [id number] [place] [address] 00654- 5267 Oct, Morbid obesity due to excess calories E66.01 [facility] [id number] [place] [address] 64439- 1617 Oct, Lumbago with sciatica, right side M54.41 ; Morbid obesity due to excess calories E66.01 and Mood disorder F39 [facility] [address] [address]- 1436 Oct, [facility] [address] [address]- 8583 Oct, [facility] [address] [address]- 0513 Sep, [facility] [id number] [address]- 4457 Jul, [facility] [address] [address]- 6722 Jul, [facility] [id number] [address]- 6295 Jul, [facility] [id number] [place] [address] 62631- 5753 Jul, [facility] [id number] [place] [address] 29145- 3855 Jun, Other chronic pain G89.29 and Pain in left shoulder M25.512 [facility] [id number] [place] [address] 02025- 8819 May, [facility] [id number] [place] [address] 30692- 6203 May, Wrist tendonitis M77.8 ; Lumbago with sciatica, right side M54.41 and Other chronic pain G89.29 [facility] [id number] [place] [address] 39538- 7641 May, [facility] [id number] [place] [address] 55267- 7622 Apr, [facility] [id number] [place] [address] 86920- 3066 Apr, Generalized anxiety disorder F41.1 [facility] [id number] [place] [address] 33914- 1252 Apr, [facility] [id number] [place] [address] 21155- 9235 Apr, Generalized anxiety disorder F41.1 [facility] [id number] [place] [address] 14508- 4357 March, [facility] [id number] [place] [address] 63329- 4187 March, Acute pain of left shoulder M25.512 and Left wrist pain M25.532 [facility] [address] [address]- 2187 Feb, [facility] [id number] [place] [address] 32977- 2349 Jan, Family history of diabetes mellitus Z83.3 [facility] [id number] [place] [address] 61626- 1249 Jan, [facility] [id number] [place] [address] 677922- 5323 Jan, [facility] [id number] [place] [address] 35833- 0503 Dec, Family history of diabetes mellitus Z83.3 and Anxiety F41.9 [facility] [id number] [place] [address] 88709- 8606 Nov, [facility] [id number] [place] [address] 81173- 3079 Nov, [facility] [id number] [place] [address] 68877 -6953 Nov, Streptococcal pharyngitis J02.0 ; Sore throat J02.9 and Acute diarrhea R19.7 [facility] [address] [address]- 2258 Oct, [facility] [id number] [place] [address] 74845- 3218 Oct, [facility] [address] [address]- 5253 Oct, Generalized anxiety disorder 300.02 [facility] [address] [address]- 2272 Sep, [facility] [address] [address]- 2271 Aug, [facility] [id number] [place] [address] 99627- 9279 Jul, [facility] [address] [id number] 04 Jul, 2015 Dental examination V72.2 [facility] [id number] [place] [address]- 7829 Jun, [facility] [id number] [place] [address]- 5068 Jun, [facility] [address] [place] [address]- 1746 May, Generalized anxiety disorder 300.02 ; Abnormal weight gain 783.1 ; Edema 782.3 and Family history of diabetes mellitus V18.0 [facility] [id number] [place] [address]- 6178 May, [facility] [id number] [place] [address]- 8903 May, [facility] [id number] [place] [address]- 8686 Apr, [facility] [id number] [place] [address]- 0451 March, [facility] [id number] [place] [address]- 7037 Feb, [facility] [id number] [place] [address]- 6506 Feb, [facility] [address] [address]- 5246 Jan, [facility] [id number] [place] [address]- 5880 Jan, [facility] [id number] [place] [address]- 0376 Jan, [facility] [id number] [place] [address]- 9596 Jan, [facility] [id number] [place] [address]- 7726 Dec, [facility] [id number] [place] [address]- 4795 Dec, [facility] [place] [facility] [address] [id number] [place] [address]- 1333 Nov, [facility] [place] [facility] [address] [id number] [place] [address]- 9328 Nov, [facility] [place] [facility] [address] [id number] [place] [address]- 6730 Oct, [facility] [place] [facility] [address] [id number] [place] [address]- 1442 Oct, [facility] [place] [facility] [address] [id number] [place] [address]- 3974 Sep, [facility] [place] [facility] [address] [id number] [place] [address]- 2178 Sep, [facility] [place] [facility] [address] [id number] [place] [address]- 2143 Sep, [facility] [place] [facility] [address] [id number] [place] [address]- 1172 Sep, [facility] [place] [facility] [address] [id number] [place] [address]- 6559 Jul, [facility] [place] [facility] [address] [id number] [place] [address]- 4990 Jul, [facility] [place] [facility] [address] [id number] [place] [address]- 3940 Jul, [facility] [place] [facility] [address] [id number] [address]- 8123 Jul, [facility] [place] [facility] [address] [id number] [place] [address]- 3991 Jun, [facility] [place] [facility] [address] [id number] [place] [address]- 2517 Jun, [facility] [place] [facility] [address] [id number] [place] [address]- 9295 Jun, [facility] [place] [facility] [address] [id number] [address]- 4616 Jun, [facility] [address] [id number] [place] [address]- 7901 Jun, [facility] [place] [facility] [address] [id number] [place] [address]- 4694 Jun, [facility] [place] [facility] [address] [id number] [place] [address]- 3236 Jun, [facility] [place] [facility] [address] [id number] [place] [address]- 0808 Jun, [facility] [place] [facility] [address] [id number] [place] [address]- 9903 May, [facility] [place] [facility] [address] [id number] [place] [address]- 7861 May, [facility] [place] [facility] [address] [id number] [place] [address]- 0571 May, [facility] [place] [facility] [address] [id number] [place] [address]- 3252 May, [facility] [place] [facility] [address] [id number] [place] [address]- 0006 May, [facility] [place] [facility] [address] [id number] [place] [address]- 3402 Apr, [facility] [place] [facility] [address] [id number] [place] [address]- 0717 Apr, [facility] [place] [facility] [address] [id number] [place] [address]- 7295 March, [facility] [place] [facility] [address] [id number] [place] 6366 March, [facility] [place] [facility] [address] [id number] [place] [address]- 8154 March, [facility] [place] [facility] [address] [id number] [place] 6188 March, [facility] [address] [place] [id number] March [facility] [address] [id number] [place] [address]- 7922 March, [facility] [address] [id number] [place] [address]- 2360 Feb, [facility] [address] [id number] [place] [address]- 0072 Feb, [facility] [address] [id number] [place] [address]- 5403 Feb, [facility] [address] [id number] [place] [address]- 9229 Feb, [facility] [address] [id number] [place] [address]- 6787 Feb, [facility] [address] [id number] [place] [address]- 4753 Feb, [facility] [address] [id number] [place] [address]- 1349 15 Feb, 2014 [facility] [address] [id number] [place] [address]- 9960 Feb, [facility] [address] [id number] [place] [address]- 5300 Feb, [facility] [address] [id number] [place] [address]- 2811 Feb, [facility] [address] [id number] [place] [address]- 8430 Feb, [facility] [address] [id number] [place] [address]- 0502 Feb, [facility] [address] [id number] [place] [address]- 2730 Feb, [facility] [address] [id number] [place] [address]- 2356 Feb, [facility] [place] [facility] [address] [id number] [place] [address]- 4910 Jan, [facility] [place] [facility] [address] [id number] [place] [address]- 8066 Jan, [facility] [place] [facility] [address] [id number] [place] [address]- 5524 Dec, [facility] [place] [facility] [address] [id number] [place] [address]- 1790 Dec, [facility] [place] [facility] [address] [id number] [place] [address]- 7349 Dec, [facility] [place] [facility] [address] [id number] [place] [address]- 9731 Dec, [facility] [place] [facility] [address] [id number] [place] [address]- 1098 Nov, [facility] [place] [facility] [address] [id number] [place] [address]- 7532 Nov, [facility] [place] [facility] [address] [id number] [place] [address]- 3401 Oct, [facility] [place] [facility] [address] [id number] [place] [address]- 2953 Oct, [facility] [place] [facility] [address] [facility] [id number] [place] [address]- 2732 Oct, [facility] [place] [facility] [address] [id number] [place] [address]- 1642 Oct, [facility] [place] [facility] [address] [id number] [place] [address]- 2493 Sep, [facility] [place] [facility] [address] [id number] [place] [address]- 5582 Sep, [facility] [place] [facility] [address] [facility] [place] [place] [id number] [place] [address]- 7949 Sep, [facility] [place] [facility] [address] [id number] [place] [address]- 9432 Sep, [facility] [address] [id number] [place] [address]- 7522 Jul, [facility] [place] [facility] [address] [id number] [place] [address]- 5874 Jul, [facility] [place] [facility] [address] [id number] [place] [address]- 8882 Jun, [facility] [place] [facility] [address] [id number] [place] [address]- 5247 Jun, [facility] [place] [facility] [address] [id number] [place] [address]- 9669 Jun, [facility] [place] [facility] [address] [id number] [place] [address]- 2905 May, [facility] [place] [facility] [address] [id number] [place] [address]- 1754 May, [facility] [place] [facility] [address] [id number] [place] [address]- 6134 Apr, [facility] [place] [facility] [address] [id number] [place] [address]- 5940 Apr, [facility] [place] [facility] [address] [id number] [place] [address]- 0796 Apr, [facility] [place] [facility] [address] [id number] [place] [address]- 0486 Apr, [facility] [place] [facility] [address] [id number] [place] [address]- 6304 Apr, [facility] [place] [facility] [address] [id number] [place] [address]- 5174 Apr, [facility] [place] [facility] [address] [id number] [place] [address]- 5068 March, [facility] [place] [facility] [address] [id number] [place] [address]- 2869 Feb, [facility] [place] [facility] [address] [id number] [place] [address]- 7755 Feb, [facility] [address] [id number] [place] [address]- 8706 Feb, [facility] [place] [facility] [address] [id number] [place] [address]- 4375 Feb, [facility] [place] [facility] [address] [id number] [place] [address]- 2437 04 Feb, 2013 [facility] [place] [facility] [address] [id number] [place] [address]- 5554 Jan, [facility] [place] [facility] [address] [id number] [place] [address]- 0743 Jan, [facility] [place] [facility] [address] [facility] [id number] [place] [address]- 8009 Jan, [facility] [place] [facility] [address] [id number] [place] [address]- 1931 Dec, [facility] [place] [facility] [address] [id number] [place] [address]- 6771 Dec, [facility] [place] [facility] [address] [id number] [place] [address]- 6859 Dec, [facility] [place] [facility] [address] [id number] [place] [address]- 7076 Dec, [facility] [place] [facility] [address] [id number] [place] [address] Dec, [facility] [place] [facility] [address] [id number] [place] [address] Nov, [facility] [place] [facility] [address] [id number] [place] [address] Nov, [facility] [place] [facility] [address] [id number] [place] [address] Oct, [facility] [place] [facility] [address] [id number] [place] [address] Oct, [facility] [place] [facility] [address] [id number] [place] [address] Oct, [facility] [place] [facility] [address] [id number] [place] [address] Oct, [facility] [place] [facility] [address] [id number] [place] [address] Sep, [facility] [place] [facility] [address] [id number] [place] [address] Sep, [facility] [place] [facility] [address] [id number] [place] [address] Sep, [facility] [place] [facility] [address] [id number] [place] [address] Sep, [facility] [place] [facility] [address] [id number] [place] [address] Aug, [facility] [place] [facility] [address] [id number] [place] [address] Aug, [facility] [place] [facility] [address] [id number] [place] [address] Aug, [facility] [place] [facility] [address] [id number] [place] [address] Aug, [facility] [place] [facility] [address] [id number] [place] [address] Aug, [facility] [place] [facility] [address] [id number] [place] [address] Aug, [facility] [place] [facility] [address] [id number] [place] [address] Aug, [facility] [place] [facility] [address] [id number] [place] [address] Jun, [facility] [place] [facility] [address] [id number] [place] [address] Jun, [facility] [place] [facility] [address] [id number] [place] [address] 30 May, 2012 [facility] [address] [id number] [place] [address] 24 May, 2012 [facility] [address] [id number] [place] [address] May, [facility] [address] [id number] [place] [address] May, [facility] [address] [id number] [place] [address] May, [facility] [address] [id number] [place] [address] May, [facility] [address] [id number] [place] [id number] Apr, [facility] [address] [id number] [place] [address] Apr, [facility] [address] [id number] [place] [address] Feb, [facility] [address] [id number] [place] [address] Jan, [facility] [address] [id number] [place] [address] Jan, [facility] [address] [id number] [place] [address] Jan, [facility] [address] [id number] [place] [address] Jan, [facility] [place] [facility] [address] [id number] [place] [address] Jan, [facility] [place] [facility] [address] [id number] [place] [address] Jan, [facility] [place] [facility] [address] [id number] [place] [address] Jan, [facility] [id number] [address] Jan, [facility] [id number] [address] Dec, [facility] [id number] [address] Sep, [facility] [id number] [address] Aug, [facility] [id number] [address] March, [facility] [id number] [address] Oct, [facility] [id number] [address] Oct, [facility] [id number] [address] Oct, [facility] [id number] [address] Aug, [facility] [id number] [address] Aug, [facility] [address] [id number] [address] Oct, IMMUNIZATIONS No Known Immunizations SOCIAL HISTORY Never Assessed REASON FOR VISIT Medication refill request PLAN OF CARE VITAL SIGNS MEDICATIONS Medication Instructions Dosage Frequency Start Date End Date Duration Status Metformin HCl 500 MG TAKE ONE TABLET BY MOUTH TWICE DAILY WITH MEALS 30 Active Hydrochlorothiazide 25 MG TAKE ONE TABLET BY MOUTH IN THE MORNING 30 Active Celebrex 200 mg Orally Once a day 1 capsule with food 24h Active Atorvastatin Calcium 20 mg TAKE ONE TABLET BY MOUTH ONCE DAILY 30 Active RESULTS No Results PROCEDURES No [...]
--- OUTSIDE RECORDS SUMMARY | 2019-03-06 03:51 | XMS REPORT ---
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 Name Role Phone DUBOISAGUILAR Shelton Unavailable PROBLEMS Type Condition ICD9-CM Code SKT18-KP Code Onset Dates Condition Status SNOMED Code Problem Morbid obesity due to excess calories E66.01 Active 979464457 Problem Lumbago with sciatica, right side M54.41 Active 366673916 Problem Mixed hyperlipidemia E78.2 Active 365390474 Problem Tobacco abuse counseling Z71.6 Active 526501092 Problem Pre-diabetes R73.03 Active 612184995 Problem Post menopausal syndrome N95.1 Active 186293237 Problem Tobacco abuse Z72.0 Active 379606135 Problem GERD without esophagitis K21.9 Active 735549134 ALLERGIES No Information ENCOUNTERS Encounter Location Date Diagnosis [place] [id number] [place] [address] 37574- 2374 Apr, Pre-diabetes R73.03 ; GERD without esophagitis K21.9 ; Tobacco abuse Z72.0 ; Tobacco abuse counseling Z71.6 ; Morbid obesity due to excess calories E66.01 ; Mixed hyperlipidemia E78.2 and Preoperative evaluation to rule out surgical contraindication Z01.818 [facility] [id number] [place] [address] 50299- 6813 March, [facility] [address] [address] Jan, [place] [address] [place] [id number] [place] [address] 77030- 6936 Jan, Post menopausal syndrome N95.1 [facility] [id number] [place] [address] 90675- 0758 Dec, Pre-diabetes R73.03 ; GERD without esophagitis K21.9 ; Post menopausal syndrome N95.1 ; Tobacco abuse Z72.0 ; Tobacco abuse counseling Z71.6 ; Morbid obesity due to excess calories E66.01 and Lumbago with sciatica, right side M54.41 [place] [address] [place] [id number] [place] [address] 36465- 3150 Nov, [place] [address] [place] [id number] [place] [address] 91962- 4049 Oct, Breast lump on left side at 6 o'clock position N63.20 [place] [address] [place] [id number] [place] [address] 22985- 4505 Aug, [place] [address] [place] [id number] [place] [address] 08634- 0233 Jul, [place] [address] [place] [id number] [place] [address] 48182- 7147 Jul, Morbid obesity due to excess calories E66.01 and Diabetes E11.9 [place] [address] [place] [id number] [place] [address] 24172- 7905 Jul, Morbid obesity due to excess calories E66.01 and Diabetes E11.9 [place] [address] [place] [id number] [place] [address] 80504- 2740 Jun, Morbid obesity due to excess calories E66.01 [place] [address] [place] [id number] [place] [address] 78227- 1017 May, Wrist tendonitis M77.8 and Lumbago with sciatica, right side M54.41 [place] [address] [place] [id number] [place] [address] 42541- 2632 Apr, Diabetes E11.9 and Morbid obesity due to excess calories E66.01 [place] [address] [place] [id number] [place] [address] 59018- 5710 March, [place] [address] [place] [id number] [place] [address] 85888- 7540 March, [facility] [address] [address] 0782 Nov, [facility] [address] [place] [address] [id number] [place] [address] 72429- 5146 Nov, [facility] [address] [address]- 5766 Oct, [facility] [address] [place] [address] [id number] [place] [address] 14151 2546 Oct, Morbid obesity due to excess calories E66.01 [facility] [id number] [place] [address] 20737- 7566 Oct, Lumbago with sciatica, right side M54.41 ; Morbid obesity due to excess calories E66.01 and Mood disorder F39 [facility] [id number] [place] [address] 57273- 5486 Oct, [facility] [id number] [address]- 5396 Oct, [facility] [address] [address]- 7639 Sep, [facility] [address] [id number] [address]- 9436 Jul, [facility] [id number] [address]- 6706 Jul, [facility] [address] [address]- 2546 Jul, [facility] [address] [address]- 2546 Jul, [facility] [address] [place] [id number] [place] [address] 59665 2546 Jun, Other chronic pain G89.29 and Pain in left shoulder M25.512 [facility] [id number] [place] [address] 27756- 6226 May, [facility] [address], [place] [address]- 9138 May, Wrist tendonitis M77.8 ; Lumbago with sciatica, right side M54.41 and Other chronic pain G89.29 [facility] [address] [address]- 1466 May, [facility] [address] [place] [id number] [place] [address] 27353- 2794 Apr, [facility] [address] [place] [address] [id number] [place] [address] 59871- 1047 Apr, Generalized anxiety disorder F41.1 [facility] [address] [place] [id number] [place] [address] 13041- 2667 Apr, [facility] [address] [place] [address] [id number] [place] [address] 83692- 3766 Apr, Generalized anxiety disorder F41.1 [facility] [address] [place] [id number] [place] [address] 27380- 1220 March, [facility] [address] [place] [id number] [place] [address] 05267- 3068 March, Acute pain of left shoulder M25.512 and Left wrist pain M25.532 [facility] [address], [place] [address]- 0006 Feb, [facility] [address] [place] [id number] [place] [address] 31191- 9851 Jan, Family history of diabetes mellitus Z83.3 [facility] [address], [place] [address]- 9066 Jan, [facility] [address] [place] [id number] [place] [address] 87114- 9595 Jan, [facility] [address], [place] [address]- 8674 Dec, Family history of diabetes mellitus Z83.3 and Anxiety F41.9 [facility] [id number], [place] [address]- 7592 Nov, [facility] [address] [place] [id number] [place] [address] 26796- 3119 Nov, [facility] [address] [place] [address] [id number] [place] [address] 86333 -5608 Nov, Streptococcal pharyngitis J02.0 ; Sore throat J02.9 and Acute diarrhea R19.7 [facility] [address] [place] [id number] [place] [address] 41912- 3669 Oct, [facility] [address] [place] [id number] [place] [address] 35317- 2677 Oct, [facility] [address] [place] [id number] [place] [address] 40679- 4947 Oct, Generalized anxiety disorder 300.02 [facility] [address] [id number] [place] [address] 95708- 3975 Sep, [facility] [address] [place] [id number] [place] [address] 78846- 5176 Aug, [facility] [address] [place] [id number] [place] [address] 97152- 0213 Jul, [facility] [address] [id number] [place] [address] [id number] Jul, Dental examination V72.2 [facility] [address] [place] [id number] [place] [address] 23452- 5235 Jun, [facility] [address] [place] [id number] [place] [address] 02094- 9899 Jun, [facility] [address] [place] [id number] [place] [address] 82788- 3666 May, Generalized anxiety disorder 300.02 ; Abnormal weight gain 783.1 ; Edema 782.3 and Family history of diabetes mellitus V18.0 [facility] [address] [place] [address] [place] [address]- 8313 May, [facility] [place] [facility] [address] [id number] [place] [address]- 7189 May, [facility] [place] [facility] [address] [id number] [place] [address]- 1233 Apr, [facility] [place] [facility] [address] [id number] [place] [address]- 7606 March, [facility] [place] [facility] [address] [id number] [place] [address]- 2496 Feb, [facility] [place] [facility] [address] [id number] [place] [address]- 4760 Feb, [facility] [place] [facility] [address] [id number] [place] [address]- 5198 Jan, [facility] [place] [facility] [address] [id number] [place] [address]- 7736 Jan, [facility] [place] [facility] [address] [id number] [place] [address]- 3026 Jan, [facility] [place] [facility] [address] [id number] [place] [address]- 6338 Jan, [facility] [place] [facility] [address] [facility] [id number] [place] [address]- 3964 Dec, [facility] [place] [facility] [address] [id number] [place] [address]- 9000 Dec, [facility] [place] [facility] [address] [id number] [place] [address]- 1539 Nov, [facility] [place] [facility] [address] [id number] [place] [address]- 4976 Nov, [facility] [place] [facility] [address] [id number] [place] [address]- 4915 Oct, [facility] [place] [facility] [address] [id number] [place] [address]- 6663 Oct, [facility] [place] [facility] [address] [id number] [place] [address]- 8161 Sep, [facility] [place] [facility] [address] [id number] [place] [address]- 8011 Sep, [facility] [place] [facility] [address] [id number] [place] [address]- 8707 Sep, [facility] [place] [facility] [address] [id number] [place] [address]- 6596 Sep, [facility] [place] [facility] [address] [id number] [place] [address]- 3048 Jul, [facility] [place] [facility] [address] [id number] [place] [address]- 8500 Jul, [facility] [place] [facility] [address] [id number] [place] [address]- 3813 Jul, [facility] [place] [facility] [address] [id number] [place] [address]- 1334 Jul, [facility] [place] [facility] [address] [id number] [place] [address]- 9198 Jun, [facility] [place] [facility] [address] [id number] [place] [address]- 4200 Jun, [facility] [place] [facility] [address] [id number] [place] [address]- 3615 Jun, [facility] [place] [facility] [address] [id number] [address]- 3906 Jun, [facility] [place] [facility] [address] [id number] [place] [address]- 2749 Jun, [facility] [place] [facility] [address] [id number] [place] [address]- 9997 Jun, [facility] [place] [facility] [address] [id number] [place] [address]- 1977 Jun, [facility] [place] [facility] [address] [id number] [place] [address]- 2554 Jun, [facility] [address] [id number] [place] [address]- 2851 May, [facility] [address] [id number] [place] [address]- 2621 May, [facility] [address] [id number] [place] [address]- 4601 May, [facility] [address] [id number] [place] [address]- 4027 May, [facility] [address] [id number] [place] [address]- 2562 May, [facility] [address] [id number] [place] [address]- 2678 Apr, [facility] [address] [id number] [place] [address]- 0287 Apr, [facility] [address] [id number] [place] [address]- 4241 March, [facility] [address] [id number] [place] [address]- 6542 March, [facility] [address] [id number] [place] [address]- 5829 March, [facility] [address] [id number] [place] [address]- 0814 March, [address] [id number] March [facility] [address] [id number] [place] [address]- 7422 March, [facility] [address] [id number] [place] [address]- 9197 Feb, [facility] [address] [id number] [place] [address]- 5806 Feb, [facility] [address] [id number] [place] [address]- 7436 18 Feb, 2014 [facility] [place] [facility] [address] [id number] [place] [address]- 0637 18 Feb, 2014 [facility] [place] [facility] [address] [id number] [place] [address]- 3326 16 Feb, 2014 [facility] [place] [facility] [address] [id number] [place] [address]- 9746 16 Feb, 2014 [facility] [place] [facility] [address] [id number] [place] [address]- 7502 15 Feb, 2014 [facility] [place] [facility] [address] [id number] [place] [address]- 7139 15 Feb, 2014 [facility] [place] [facility] [address] [id number] [place] [address]- 6233 10 Feb, 2014 [facility] [place] [facility] [address] [id number] [place] [address]- 3771 10 Feb, 2014 [facility] [place] [facility] [address] [id number] [place] [address]- 9489 10 Feb, 2014 [facility] [place] [facility] [address] [id number] [place] [address]- 2484 10 Feb, 2014 [facility] [place] [facility] [address] [id number] [place] [address]- 1525 Feb, [facility] [place] [facility] [address] [id number] [place] [address]- 6881 Feb, [facility] [place] [facility] [address] [id number] [place] [address]- 3872 Jan, [facility] [place] [facility] [address] [id number] [place] [address]- 3559 Jan, [facility] [place] [facility] [address] [id number] [place] [address]- 0648 Dec, [facility] [place] [facility] [address] [id number] [place] [address]- 6930 Dec, [facility] [place] [facility] [address] [id number] [place] [address]- 4654 Dec, [facility] [place] [facility] [address] [id number] [place] [address]- 7881 Dec, [facility] [place] [facility] [address] [id number] [place] [address]- 7690 Nov, [facility] [place] [facility] [address] [id number] [place] [address]- 8531 Nov, [facility] [address] [id number] [place] [address]- 2623 Oct, [facility] [place] [facility] [address] [id number] [place] [address]- 3633 Oct, [facility] [place] [facility] [address] [facility] [id number] [place] [address]- 7977 Oct, [facility] [place] [facility] [address] [id number] [place] [address]- 2961 Oct, [facility] [place] [facility] [address] [id number] [place] [address]- 4968 Sep, [facility] [place] [facility] [address] [id number], [place] [address]- 4790 Sep, [facility] [place] [facility] [address] [facility] [id number], [place] [address]- 0432 Sep, [facility] [place] [facility] [address] [id number], [place] [address]- 7180 Sep, [facility] [place] [facility] [address] [id number] [place] [address]- 1545 Jul, [facility] [place] [facility] [address] [id number], [place] [address]- 1114 Jul, [facility] [place] [facility] [address] [id number], [place] [address]- 7634 Jun, [facility] [place] [facility] [address] [id number], [place] [address]- 9840 Jun, [facility] [address] [id number] [place] [address]- 2279 Jun, [facility] [place] [facility] [address] [id number] [place] [address]- 7655 May, [facility] [place] [facility] [address] [id number] [place] [address]- 9742 May, [facility] [place] [facility] [address] [id number] [place] [address]- 2398 Apr, [facility] [place] [facility] [address] [id number] [place] [address]- 7807 Apr, [facility] [place] [facility] [address] [id number] [place] [address]- 4737 Apr, [facility] [address] [id number] [place] [address]- 8017 Apr, [facility] [place] [facility] [address] [id number] [place] [address]- 8439 Apr, [facility] [place] [facility] [address] [id number] [place] [address]- 8551 Apr, [facility] [place] [facility] [address] [id number] [place] [address]- 4904 March, [facility] [place] [facility] [address] [id number] [place] [address]- 4601 29 Feb, 2013 [facility] [place] [facility] [address] [id number] [place] [address]- 9953 Feb, [facility] [place] [facility] [address] [id number] [place] [address]- 7179 Feb, [facility] [place] [facility] [address] [id number] [place] [address]- 0481 Feb, [facility] [place] [facility] [address] [id number] [place] [address]- 1336 Feb, [facility] [place] [facility] [address] [id number] [place] [address]- 4695 28 Jan, 2013 [facility] [address] [id number] [place] [address]- 4499 Jan, [facility] [place] [facility] [address] [id number] [place] [address]- 2546 Jan, [facility] [place] [facility] [address] [id number] [place] [address]- 8074 Dec, [facility] [place] [facility] [address] [id number] [place] [address]- 0517 18 Dec, 2012 [facility] [place] [facility] [address] [id number] [place] [address]- 0334 15 Dec, 2012 [facility] [place] [facility] [address] [id number] [place] [address]- 1538 Dec, [facility] [place] [facility] [address] [id number] [place] [address]- 9409 Dec, [facility] [place] [facility] [address] [id number] [place] [address]- 1214 Nov, [facility] [place] [facility] [address] [id number] [place] [address]- 9008 Nov, [facility] [place] [facility] [address] [id number] [place] [address]- 4366 Oct, [facility] [place] [facility] [address] [id number] [place] [address]- 2546 Oct, [facility] [place] [facility] [address] [id number] [place] [address]- 2541 Oct, [facility] [place] [facility] [address] [id number] [place] [address]- 2546 Oct, [facility] [place] [facility] [address] [id number] [place] [address]- 2544 Sep, [facility] [place] [facility] [address] [id number] [place] [address]- 9076 Sep, [facility] [place] [facility] [address] [id number] [place] [address]- 3956 Sep, [facility] [place] [facility] [address] [id number] [place] [address]- 9826 Sep, [facility] [place] [facility] [address] [id number] [place] [address]- 2706 Aug, [facility] [place] [facility] [address] [id number] [place] [address]- 1651 Aug, [facility] [place] [facility] [address] [id number] [place] [address]- 2268 Aug, [facility] [place] [facility] [address] [id number] [place] 4759 Aug, [facility] [place] [facility] [address] [id number] [place] [address]- 4863 Aug, [facility] [place] [facility] [address] [id number] [place] [address]- 1117 Aug, [facility] [place] [facility] [address] [id number] [place] 1443 Aug, [facility] [place] [facility] [address] [id number] [place] [address]- 5668 Jun, [facility] [place] [facility] [address] [id number] [place] [address]- 1785 Jun, [facility] [place] [facility] [address] [id number] [place] [address]- 4837 May, [facility] [place] [facility] [address] [id number] [place] [address]- 9365 May, [facility] [place] [facility] [address] [id number] [place] [address] May, [facility] [place] [facility] [address] [id number] [place] [address] May, [facility] [place] [facility] [address] [id number] [place] [address] May, [facility] [address] [id number] [place] [address] May, [facility] [address] [id number] [place] [id number] Apr, [facility] [address] [id number] [place] [address] Apr, [facility] [place] [facility] [address] [id number] [place] [address] Feb, [facility] [address] [id number] [place] [address] Jan, [facility] [address] [id number] [place] [address] Jan, [facility] [address] [id number] [place] [address] Jan, [facility] [address] [id number] [place] [address] Jan, [facility] [address] [id number] [place] [address] Jan, [facility] [address] [id number] [place] [address] Jan, [facility] [place] [facility] [address] [id number] [place] [address] Jan, [facility] [place] [facility] [address] [id number] [place] [address] Jan, [facility] [place] [facility] [address] [id number] [place] [address] Dec, [facility] [place] [facility] [address] [id number] [place] [address] Sep, [facility] [place] [facility] [address] [id number] [place] [address] Aug, [facility] [address] [facility] [id number], [place] [address] March, [facility] [address] [facility] [id number], [place] [address] Oct, [facility] [address] [facility] [id number], [place] [address] Oct, [facility] [address] [id number], [place] [address] Oct, [facility] [address] [id number], [place] [address] Aug, [facility] [address] [id number], [place] [address] Aug, [facility] [address] [id number], [place] [address] Oct, IMMUNIZATIONS No Known Immunizations SOCIAL HISTORY Never Assessed REASON FOR VISIT co-pay PLAN OF CARE VITAL SIGNS MEDICATIONS Medication Instructions Dosage Frequency Start Date End Date Duration Status BuPROPion HCl 100 MG Orally Once a day 1 tablet 24h Jan, 30 day (s) Active RESULTS No Results PROCEDURES No Known [...]
--- OUTSIDE RECORDS SUMMARY | 2019-03-06 03:51 | XMS REPORT ---
Author Author AGUILAR DUBOIS Organization [facility] Address [address] [place] [address] Care Team Providers Care Front Desk Worker Name Role Phone SHERLYMATHEWAGUILAR Unavailable PROBLEMS Type Condition ICD9-CM Code RUI52-NQ Code Onset Dates Condition Status SNOMED Code Problem Morbid obesity due to excess calories E66.01 Active 081479525 Problem Lumbago with sciatica, right side M54.41 Active 392173534 Problem Mixed hyperlipidemia E78.2 Active 072913086 Problem Tobacco abuse counseling Z71.6 Active 294646781 Problem Pre-diabetes R73.03 Active 262364458 Problem Post menopausal syndrome N95.1 Active 240072443 Problem Tobacco abuse Z72.0 Active 562006639 Problem GERD without esophagitis K21.9 Active 877559404 ALLERGIES No Information ENCOUNTERS Encounter Location Date Diagnosis [place] [id number] [place] [address] 82544- 7560 Jul, [place] [id number] [place] [address] 13699- 1963 Jun, [place] [id number] [place] [address] 59700- 5824 Jun, [place] [id number] [place] [address] 73623- 7142 Apr, Pre-diabetes R73.03 ; GERD without esophagitis K21.9 ; Tobacco abuse Z72.0 ; Tobacco abuse counseling Z71.6 ; Morbid obesity due to excess calories E66.01 ; Mixed hyperlipidemia E78.2 and Preoperative evaluation to rule out surgical contraindication Z01.818 [place] [id number] [place] [address] 90763- 8490 March, [place] [address] [place] [address] 4550 Jan, [place] [id number] [place] [address] 23513- 6760 Jan, Post menopausal syndrome N95.1 [place] [id number] [place] [address] 02182- 9218 Dec, Pre-diabetes R73.03 ; GERD without esophagitis K21.9 ; Post menopausal syndrome N95.1 ; Tobacco abuse Z72.0 ; Tobacco abuse counseling Z71.6 ; Morbid obesity due to excess calories E66.01 and Lumbago with sciatica, right side M54.41 [place] [id number] [place] [address] 05755- 5454 Nov, [place] [id number] [place] [address] 89465- 0704 Oct, Breast lump on left side at 6 o'clock position N63.20 [place] [id number] [place] [address] 90050- 3132 Aug, [place] [id number] [place] [address] 95157- 9761 Jul, [place] [id number] [place] [address] 50887- 2217 Jul, Morbid obesity due to excess calories E66.01 and Diabetes E11.9 [place] [id number] [place] [address] 79034- 6115 Jul, Morbid obesity due to excess calories E66.01 and Diabetes E11.9 [place] [id number] [place] [address] 73720- 2292 Jun, Morbid obesity due to excess calories E66.01 [place] [id number] [place] [address] 93616- 2927 May, Wrist tendonitis M77.8 and Lumbago with sciatica, right side M54.41 [place] [address] [place] [address]- 4465 Apr, Diabetes E11.9 and Morbid obesity due to excess calories E66.01 [facility] [address] [address] 9129 March, [facility] [address] [address]- 0570 March, [facility] [id number] [place] [address] 74311- 0557 Nov, [facility] [address], [place] [address]- 0655 Nov, [facility] [id number] [place] [address] 37184- 7118 Oct, [facility] [id number] [address]- 0433 Oct, Morbid obesity due to excess calories E66.01 [facility] [address], [place] [address]- 9985 Oct, Lumbago with sciatica, right side M54.41 ; Morbid obesity due to excess calories E66.01 and Mood disorder F39 [facility] [address] [address]- 4104 Oct, [facility] [address] [address]- 2316 Oct, [facility] [address], [place] [address]- 1888 Sep, [facility] [address] [address]- 2805 Jul, [facility] [address] [address]- 4987 Jul, [facility] [address] 2558 Jul, [facility] [id number] [address]- 1338 Jul, [facility] [id number] [place] [address] 35711- 6071 Jun, Other chronic pain G89.29 and Pain in left shoulder M25.512 [facility] [address] [place] [address] 67454- 9313 May, [facility] [id number] [place] [address] 90008- 2273 May, Wrist tendonitis M77.8 ; Lumbago with sciatica, right side M54.41 and Other chronic pain G89.29 [facility] [id number] [place] [address] 18418- 0053 May, [facility] [id number] [place] [address] 20908- 9886 Apr, [facility] [id number] [place] [address] 26782- 8501 Apr, Generalized anxiety disorder F41.1 [facility] [id number] [place] [address] 50554- 7850 Apr, [facility] [address] [place] [address] 45714- 6544 Apr, Generalized anxiety disorder F41.1 [facility] [address] [place] [address] 92330- 2307 March, [facility] [id number] [place] [address] 47846- 254 March, Acute pain of left shoulder M25.512 and Left wrist pain M25.532 [facility] [id number] [place] [address] 97649- 7390 Feb, [facility] [address], [place] [address]- 5175 Jan, Family history of diabetes mellitus Z83.3 [facility] [id number] [address]- 2636 Jan, [facility] [address], [place] [address]- 4440 Jan, [facility] [address], [place] [address]- 2208 Dec, Family history of diabetes mellitus Z83.3 and Anxiety F41.9 [facility] [id number] [place] [address] 56171- 7321 Nov, [facility] [address] [place] [address] 81068- 2886 Nov, [facility] [address] [place] [address] 50744 -4163 Nov, Streptococcal pharyngitis J02.0 ; Sore throat J02.9 and Acute diarrhea R19.7 [facility] [address] [place] [address] 51350- 0689 Oct, [facility] [address] [address]- 5786 Oct, [facility] [address] [place] [address] 40685- 0284 Oct, Generalized anxiety disorder 300.02 [facility] [address], [place] [address]- 9886 Sep, [facility] [address], [place] [address]- 7138 Aug, [facility] [address] [address]- 3916 Jul, [facility] [address] [address] Jul, Dental examination V72.2 [facility] [address], [place] [address]- 5393 Jun, [facility] [id number] [address]- 2756 Jun, [facility] [address], [place] [address]- 6545 May, Generalized anxiety disorder 300.02 ; Abnormal weight gain 783.1 ; Edema 782.3 and Family history of diabetes mellitus V18.0 [facility] [address], [place] [address]- 4418 May, [facility] [address], [place] [address]- 5147 May, [facility] [address] [place] [address] 43970- 6315 Apr, [facility] [id number] [address]- 0536 March, [facility] [id number] [place] [address] 67544- 5628 Feb, [facility] [address] [address]- 3350 Feb, [facility] [address], [place] [address]- 0826 Jan, [facility] [address], [place] [address]- 6706 Jan, [facility] [address], [place] [address]- 7096 Jan, [facility] [address] [address]- 2546 Jan, [facility] [address] [address]- 0766 Dec, [facility] [address], [place] [address]- 2546 Dec, [facility] [address] [address]- 7087 Nov, [facility] [place] [facility] [address] [id number] [place] [address]- 7676 Nov, [facility] [place] [facility] [address] [id number] [place] [address]- 8894 Oct, [facility] [place] [facility] [address] [id number] [place] [address]- 8697 Oct, [facility] [place] [facility] [address] [id number] [place] [address]- 3338 Sep, [facility] [place] [facility] [address] [id number] [place] [address]- 5837 Sep, [facility] [place] [facility] [address] [id number] [place] [address]- 5780 Sep, [facility] [place] [facility] [address] [id number] [place] [address]- 2676 Sep, [facility] [place] [facility] [address] [id number] [place] [address]- 9799 Jul, [facility] [place] [facility] [address] [id number] [place] [address]- 6075 Jul, [facility] [place] [facility] [address] [id number] [place] [address]- 9002 Jul, [facility] [place] [facility] [address] [id number] [place] [address]- 9308 Jul, [facility] [place] [facility] [address] [id number] [place] [address]- 8859 Jun, [facility] [place] [facility] [address] [id number] [place] [address]- 5225 Jun, [facility] [place] [facility] [address] [id number] [place] [address]- 4180 Jun, [facility] [place] [facility] [address] [id number] [place] [address]- 3133 Jun, [facility] [place] [facility] [address] [id number] [place] [address]- 9731 Jun, [facility] [address] [id number] [place] [address]- 5271 Jun, [facility] [address] [id number] [place] [address]- 3680 Jun, [facility] [address] [id number] [place] [address]- 4807 Jun, [facility] [address] [id number] [place] [address]- 2447 May, [facility] [address] [id number] [place] [address]- 5778 May, [facility] [address] [id number] [place] [address]- 2175 May, [facility] [address] [id number] [place] [address]- 8988 May, [facility] [address] [id number] [place] [address]- 5333 May, [facility] [address] [id number] [place] [address]- 6262 Apr, [facility] [address] [id number] [place] [address]- 7297 Apr, [facility] [address] [id number] [place] [address]- 5328 March, [facility] [address] [id number] [place] [address]- 7314 March, [facility] [address] [id number] [place] [address]- 2492 March, [facility] [address] [id number] [place] [address]- 9857 March, [address] [id number] March [facility] [address] [id number] [place] [address]- 1751 March, [facility] [place] [facility] [address] [id number] [place] [address]- 7855 18 Feb, 2014 [facility] [place] [facility] [address] [id number] [place] [address]- 0163 18 Feb, 2014 [facility] [place] [facility] [address] [id number] [place] [address]- 5431 Feb, [facility] [place] [facility] [address] [id number] [place] [address]- 6654 18 Feb, 2014 [facility] [place] [facility] [address] [id number] [place] [address]- 3675 16 Feb, 2014 [facility] [place] [facility] [address] [id number] [place] [address]- 8996 16 Feb, 2014 [facility] [place] [facility] [address] [id number] [place] [address]- 7412 15 Feb, 2014 [facility] [place] [facility] [address] [id number] [place] [address]- 2970 15 Feb, 2014 [facility] [place] [facility] [address] [id number] [place] [address]- 6651 10 Feb, 2014 [facility] [place] [facility] [address] [id number] [place] [address]- 7792 10 Feb, 2014 [facility] [place] [facility] [address] [id number] [place] [address]- 0636 10 Feb, 2014 [facility] [place] [facility] [address] [id number] [place] [address]- 7155 10 Feb, 2014 [facility] [place] [facility] [address] [id number] [place] [address]- 0701 02 Feb, 2014 [facility] [place] [facility] [address] [id number] [place] [address]- 1563 02 Feb, 2014 [facility] [place] [facility] [address] [id number] [place] [address]- 1651 Jan, [facility] [place] [facility] [address] [id number] [place] [address]- 1113 Jan, [facility] [place] [facility] [address] [id number] [place] [address]- 4645 Dec, [facility] [place] [facility] [address] [id number] [place] [address]- 3712 Dec, [facility] [place] [facility] [address] [id number] [place] [address]- 4107 Dec, [facility] [place] [facility] [address] [id number] [place] [address]- 8418 Dec, [facility] [place] [facility] [address] [id number] [place] [address]- 4202 Nov, [facility] [place] [facility] [address] [id number] [place] [address]- 9291 Nov, [facility] [place] [facility] [address] [id number] [place] [address]- 2075 Oct, [facility] [place] [facility] [address] [id number] [place] [address]- 4260 Oct, [facility] [place] [facility] [address] [id number] [place] [address]- 0863 Oct, [facility] [place] [facility] [address] [facility] [id number] [place] [address]- 1223 Oct, [facility] [place] [facility] [address] [id number] [address]- 7674 Sep, [facility] [place] [facility] [address] [id number] [place] [address]- 9296 Sep, [facility] [place] [facility] [address] [id number] [place] [address]- 4163 Sep, [facility] [place] [facility] [address] [id number] 2782 Sep, [facility] [place] [facility] [address] [id number] [place] [address]- 8888 04 Jul, 2013 [facility] [address] [id number] [place] [address]- 4144 Jul, [facility] [place] [facility] [address] [id number] [place] [address]- 8929 Jun, [facility] [address] [id number] [place] [address]- 3345 Jun, [facility] [place] [facility] [address] [id number] [place] [address]- 7812 Jun, [facility] [address] [id number] [place] [address]- 8634 May, [facility] [place] [facility] [address] [id number] [place] [address]- 6089 May, [facility] [address] [id number] [place] [address]- 9444 Apr, [facility] [place] [facility] [address] [id number] [place] [address]- 7905 Apr, [facility] [place] [facility] [address] [id number] [place] [address]- 6642 Apr, [facility] [place] [facility] [address] [id number] [place] [address]- 3667 Apr, [facility] [place] [facility] [address] [id number] [place] [address]- 4154 Apr, [facility] [place] [facility] [address] [id number] [place] [address]- 6444 Apr, [facility] [place] [facility] [address] [id number] [place] [address]- 6301 March, [facility] [place] [facility] [address] [id number] [place] [address]- 5039 29 Feb, 2013 [facility] [place] [facility] [address] [id number] [place] [address]- 9145 Feb, [facility] [place] [facility] [address] [id number] [place] [address]- 6272 Feb, [facility] [address] [id number] [place] [address]- 1094 Feb, [facility] [place] [facility] [address] [id number] [place] [address]- 2546 Feb, [facility] [place] [facility] [address] [id number] [place] [address]- 6990 Jan, [facility] [place] [facility] [address] [id number] [place] [address]- 5515 Jan, [facility] [place] [facility] [address] [id number] [place] [address]- 9922 Jan, [facility] [place] [facility] [address] [id number] [place] [address]- 9473 Dec, [facility] [place] [facility] [address] [id number] [place] [address]- 9087 Dec, [facility] [address] [id number] [place] [address]- 1088 Dec, [facility] [address] [id number] [place] [address]- 7056 Dec, [facility] [place] [facility] [address] [id number] [place] [address]- 8622 Dec, [facility] [place] [facility] [address] [id number] [place] [address]- 9746 Nov, [facility] [place] [facility] [address] [id number] [place] [address]- 8575 Nov, [facility] [place] [facility] [address] [id number] [place] [address]- 5886 Oct, [facility] [place] [facility] [address] [id number] [place] [address]- 0936 Oct, [facility] [place] [facility] [address] [id number] [place] [address]- 4571 Oct, [facility] [place] [facility] [address] [id number] [place] [address]- 4633 Oct, [facility] [place] [facility] [address] [id number] [place] [address]- 0266 Sep, [facility] [place] [facility] [address] [id number] [place] [address] 2546 Sep, [facility] [place] [facility] [address] [id number] [place] [address]- 9892 Sep, [facility] [place] [facility] [address] [id number] [place] [address]- 8984 Sep, [facility] [place] [facility] [address] [id number] [place] [address]- 7472 Aug, [facility] [place] [facility] [address] [id number] [place] [address]- 1984 Aug, [facility] [place] [facility] [address] [id number] [place] [address]- 3675 Aug, [facility] [place] [facility] [address] [id number] [place] 3924 Aug, [facility] [place] [facility] [address] [id number] [place] [address]- 0486 Aug, [facility] [place] [facility] [address] [id number] [place] [address]- 0078 Aug, [facility] [place] [facility] [address] [id number] [place] [address]- 6545 Aug, [facility] [place] [facility] [address] [id number] [place] [address]- 4011 Jun, [facility] [place] [facility] [address] [id number] [place] [address]- 4407 Jun, [facility] [place] [facility] [address] [id number] [place] [address]- 9102 May, [facility] [place] [facility] [address] [id number] [place] [address]- 2546 May, [facility] [address] [id number] [place] [address] May, [facility] [address] [id number] [place] [address] May, [facility] [address] [id number] [place] [address] May, [facility] [address] [id number] [place] [address] May, [facility] [address] [id number] [place] [id number] Apr, [facility] [address] [facility] [id number] [place] [address] Apr, [facility] [address] [id number] [place] [address] Feb, [facility] [address] [id number] [place] [address] Jan, [facility] [address] [id number] [place] [address] Jan, [facility] [address] [id number] [place] [address] Jan, [facility] [place] [facility] [address] [id number] [place] [address] Jan, [facility] [place] [facility] [address] [id number] [place] [address] Jan, [facility] [place] [facility] [address] [id number] [place] [address] Jan, [facility] [place] [facility] [address] [id number] [place] [address] Jan, [facility] [place] [facility] [address] [id number] [place] [address] Jan, [facility] [address] [facility] [id number] [address] Dec, [facility] [address] [facility] [id number], [place] [address] Sep, [facility] [address] [facility] [id number], [place] [address] Aug, [facility] [address] [facility] [id number], [place] [address] March, [facility] [address] [facility] [id number] Oct, [facility] [address] [facility] [id number] [address] Oct, [facility] [id number] [address] Oct, [facility] [id number] [address] Aug, [facility] [id number] [address] Aug, [facility] [address] [id number] [address] Oct, IMMUNIZATIONS No Known Immunizations SOCIAL HISTORY [...]
--- OUTSIDE RECORDS SUMMARY | 2019-03-06 03:52 | XMS REPORT ---
Author Author SHERLYMATHEWAGUILAR Organization [facility] Address [address] [place] [address] Care Team Providers Care Vessel Manager Name Role Phone DUBOISAGUILAR Shelton Unavailable PROBLEMS Type Condition ICD9-CM Code CMR69-YT Code Onset Dates Condition Status SNOMED Code Problem Morbid obesity due to excess calories E66.01 Active 463859821 Problem Lumbago with sciatica, right side M54.41 Active 453386054 Problem Mixed hyperlipidemia E78.2 Active 684624263 Problem Tobacco abuse counseling Z71.6 Active 954408368 Problem Pre-diabetes R73.03 Active 405707622 Problem Post menopausal syndrome N95.1 Active 001902758 Problem Tobacco abuse Z72.0 Active 259503146 Problem GERD without esophagitis K21.9 Active 875843000 ALLERGIES No Information ENCOUNTERS Encounter Location Date Diagnosis [place] [id number] [place] [address] 24241- 5524 Apr, Pre-diabetes R73.03 ; GERD without esophagitis K21.9 ; Tobacco abuse Z72.0 ; Tobacco abuse counseling Z71.6 ; Morbid obesity due to excess calories E66.01 ; Mixed hyperlipidemia E78.2 and Preoperative evaluation to rule out surgical contraindication Z01.818 [facility] [id number] [place] [address] 36375- 5386 March, [facility] [address] [address] 0983 Jan, [place] [address] [place] [id number] [place] [address] 48040- 9632 Jan, Post menopausal syndrome N95.1 [facility] [id number] [place] [address] 78345- 1428 Dec, Pre-diabetes R73.03 ; GERD without esophagitis K21.9 ; Post menopausal syndrome N95.1 ; Tobacco abuse Z72.0 ; Tobacco abuse counseling Z71.6 ; Morbid obesity due to excess calories E66.01 and Lumbago with sciatica, right side M54.41 [place] [address] [place] [id number] [place] [address] 77392- 3260 Nov, [place] [address] [place] [id number] [place] [address] 73760- 1449 Oct, Breast lump on left side at 6 o'clock position N63.20 [place] [address] [place] [id number] [place] [address] 66668- 1580 Aug, [place] [address] [place] [id number] [place] [address] 21693- 5750 Jul, [place] [address] [place] [id number] [place] [address] 99083- 0811 Jul, Morbid obesity due to excess calories E66.01 and Diabetes E11.9 [place] [address] [place] [id number] [place] [address] 90083- 7046 Jul, Morbid obesity due to excess calories E66.01 and Diabetes E11.9 [place] [address] [place] [id number] [place] [address] 25924- 3967 Jun, Morbid obesity due to excess calories E66.01 [place] [address] [place] [id number] [place] [address] 60314- 6766 May, Wrist tendonitis M77.8 and Lumbago with sciatica, right side M54.41 [place] [address] [place] [id number] [place] [address] 84337- 0904 Apr, Diabetes E11.9 and Morbid obesity due to excess calories E66.01 [place] [address] [place] [id number] [place] [address] 40665- 3133 March, [place] [address] [place] [id number] [place] [address] 06992- 2751 March, [facility] [address] [address]- 4173 Nov, [facility] [address] [place] [id number] [place] [address] 82433- 6146 Nov, [facility] [address], [place] [address]- 7756 Oct, [facility] [address] [place] [address] [id number] [place] [address] 83671 2546 Oct, Morbid obesity due to excess calories E66.01 [facility] [address] [place] [address] 94601- 8186 Oct, Lumbago with sciatica, right side M54.41 ; Morbid obesity due to excess calories E66.01 and Mood disorder F39 [facility] [address] [place] [address] 99487- 3086 Oct, [facility] [address], [place] [address]- 9676 Oct, [facility] [address] [address]- 1058 Sep, [facility] [address] [place] [id number] [address]- 3336 Jul, [facility] [address] [address]- 8786 Jul, [facility] [address], [place] [address]- 2546 Jul, [facility] [address], [place] [address]- 2546 Jul, [facility] [address] [place] [id number] [place] [address] 55526 2546 Jun, Other chronic pain G89.29 and Pain in left shoulder M25.512 [facility] [address] [place] [address] 38077- 1724 May, [facility] [address], [place] [address]- 4028 May, Wrist tendonitis M77.8 ; Lumbago with sciatica, right side M54.41 and Other chronic pain G89.29 [facility] [address] [address] 1984 May, [facility] [address] [place] [id number] [place] [address] 12091- 8848 Apr, [facility] [address] [place] [address] [id number] [place] [address] 60874- 4300 Apr, Generalized anxiety disorder F41.1 [facility] [address] [place] [id number] [place] [address] 83442- 6570 Apr, [facility] [address] [place] [address] [id number] [place] [address] 51939- 5559 Apr, Generalized anxiety disorder F41.1 [facility] [address] [place] [id number] [place] [address] 97875- 2894 March, [facility] [address] [place] [id number] [place] [address] 62425- 7668 March, Acute pain of left shoulder M25.512 and Left wrist pain M25.532 [facility] [address], [place] [address]- 0998 Feb, [facility] [address] [place] [address] [id number] [place] [address] 64051- 8554 Jan, Family history of diabetes mellitus Z83.3 [facility] [address], [place] [address]- 1256 Jan, [facility] [address] [place] [id number] [place] [address] 37820- 1519 Jan, [facility] [address] [address]- 2268 Dec, Family history of diabetes mellitus Z83.3 and Anxiety F41.9 [facility] [address], [place] [address]- 4918 Nov, [facility] [address] [place] [address] [id number] [place] [address] 92681- 8996 Nov, [facility] [address] [place] [address] [id number] [place] [address] 66867 -4275 Nov, Streptococcal pharyngitis J02.0 ; Sore throat J02.9 and Acute diarrhea R19.7 [facility] [address] [place] [id number] [place] [address] 55243- 9347 Oct, [facility] [address] [place] [id number] [place] [address] 50167- 7249 Oct, [facility] [address] [place] [address] [id number] [place] [address] 80100- 4280 Oct, Generalized anxiety disorder 300.02 [facility] [address] [place] [address] [id number] [place] [address] 27779- 2437 Sep, [facility] [address] [address] [id number] [place] [address] 93233- 0316 Aug, [facility] [address] [place] [address] [id number] [place] [address] 66106- 1631 Jul, [facility] [address] [id number] [place] [address] [id number] Jul, Dental examination V72.2 [facility] [address] [place] [id number] [place] [address] 08651- 8048 Jun, [facility] [address] [place] [address] [id number] [place] [address] 37199- 5694 Jun, [facility] [address] [place] [id number] [place] [address] 97120- 6892 May, Generalized anxiety disorder 300.02 ; Abnormal weight gain 783.1 ; Edema 782.3 and Family history of diabetes mellitus V18.0 [facility] [address] [place] [address] [place] [address]- 9158 May, [facility] [place] [facility] [address] [id number] [place] [address]- 8950 May, [facility] [place] [facility] [address] [id number] [place] [address]- 5186 Apr, [facility] [place] [facility] [address] [id number] [place] [address]- 2206 March, [facility] [place] [facility] [address] [id number] [place] [address]- 8163 Feb, [facility] [place] [facility] [address] [id number] [place] [address]- 0233 Feb, [facility] [place] [facility] [address] [id number] [place] [address]- 7633 Jan, [facility] [place] [facility] [address] [id number] [place] [address]- 5832 Jan, [facility] [place] [facility] [address] [id number] [place] [address]- 2632 Jan, [facility] [place] [facility] [address] [id number] [place] [address]- 1745 Jan, [facility] [place] [facility] [address] [facility] [id number] [place] [address]- 8971 Dec, [facility] [place] [facility] [address] [id number] [place] [address]- 2550 Dec, [facility] [place] [facility] [address] [id number] [place] [address]- 0760 Nov, [facility] [place] [facility] [address] [id number] [place] [address]- 6134 Nov, [facility] [place] [facility] [address] [id number] [place] [address]- 0212 Oct, [facility] [place] [facility] [address] [id number] [place] [address]- 0155 Oct, [facility] [place] [facility] [address] [id number] [place] [address]- 7396 Sep, [facility] [place] [facility] [address] [id number] [place] [address]- 4699 Sep, [facility] [place] [facility] [address] [id number] [place] [address]- 0386 Sep, [facility] [place] [facility] [address] [id number] [place] [address]- 4027 Sep, [facility] [place] [facility] [address] [id number] [place] [address]- 6811 Jul, [facility] [place] [facility] [address] [id number] [place] [address]- 3944 Jul, [facility] [place] [facility] [address] [id number] [place] [address]- 4399 Jul, [facility] [place] [facility] [address] [id number] [place] [address]- 8806 Jul, [facility] [place] [facility] [address] [id number] [place] [address]- 9089 Jun, [facility] [place] [facility] [address] [id number] [place] [address]- 6277 Jun, [facility] [place] [facility] [address] [id number] [place] [address]- 7737 Jun, [facility] [place] [facility] [address] [id number] [address]- 1351 Jun, [facility] [place] [facility] [address] [id number] [place] [address]- 4927 Jun, [facility] [place] [facility] [address] [id number] [place] [address]- 1981 Jun, [facility] [place] [facility] [address] [id number] [place] [address]- 3866 Jun, [facility] [place] [facility] [address] [id number] [place] [address]- 8625 Jun, [facility] [address] [id number] [place] [address]- 7932 May, [facility] [address] [id number] [place] [address]- 9914 May, [facility] [address] [id number] [place] [address]- 3069 May, [facility] [address] [id number] [place] [address]- 2607 May, [facility] [address] [id number] [place] [address]- 4892 May, [facility] [address] [id number] [place] [address]- 2072 Apr, [facility] [address] [id number] [place] [address]- 7120 Apr, [facility] [address] [id number] [place] [address]- 9743 March, [facility] [address] [id number] [place] [address]- 9038 March, [facility] [address] [id number] [place] [address]- 9572 March, [facility] [address] [id number] [place] [address]- 0150 March, [address] [id number] March [facility] [address] [id number] [place] [address]- 6183 March, [facility] [address] [id number] [place] [address]- 4769 Feb, [facility] [address] [id number] [place] [address]- 6836 Feb, [facility] [address] [id number] [place] [address]- 3961 18 Feb, 2014 [facility] [place] [facility] [address] [id number] [place] [address]- 4664 18 Feb, 2014 [facility] [place] [facility] [address] [id number] [place] [address]- 8530 16 Feb, 2014 [facility] [place] [facility] [address] [id number] [place] [address]- 1825 16 Feb, 2014 [facility] [place] [facility] [address] [id number] [place] [address]- 8492 15 Feb, 2014 [facility] [place] [facility] [address] [id number] [place] [address]- 2953 15 Feb, 2014 [facility] [place] [facility] [address] [id number] [place] [address]- 1146 10 Feb, 2014 [facility] [place] [facility] [address] [id number] [place] [address]- 8835 10 Feb, 2014 [facility] [place] [facility] [address] [id number] [place] [address]- 8224 10 Feb, 2014 [facility] [place] [facility] [address] [id number] [place] [address]- 5750 10 Feb, 2014 [facility] [place] [facility] [address] [id number] [place] [address]- 3430 Feb, [facility] [place] [facility] [address] [id number] [place] [address]- 3636 Feb, [facility] [place] [facility] [address] [id number] [place] [address]- 2187 Jan, [facility] [place] [facility] [address] [id number] [place] [address]- 3424 Jan, [facility] [place] [facility] [address] [id number] [place] [address]- 8080 Dec, [facility] [place] [facility] [address] [id number] [place] [address]- 6115 Dec, [facility] [place] [facility] [address] [id number] [place] [address]- 7844 Dec, [facility] [place] [facility] [address] [id number] [place] [address]- 6523 Dec, [facility] [place] [facility] [address] [id number] [place] [address]- 3136 Nov, [facility] [place] [facility] [address] [id number] [place] [address]- 1199 Nov, [facility] [address] [id number] [place] [address]- 1279 Oct, [facility] [place] [facility] [address] [id number] [place] [address]- 8966 Oct, [facility] [place] [facility] [address] [facility] [id number] [place] [address]- 4072 Oct, [facility] [place] [facility] [address] [id number] [place] [address]- 4160 Oct, [facility] [place] [facility] [address] [id number] [place] [address]- 7857 Sep, [facility] [place] [facility] [address] [id number], [place] [address]- 5469 Sep, [facility] [place] [facility] [address] [facility] [id number], [place] [address]- 6460 Sep, [facility] [place] [facility] [address] [id number], [place] [address]- 2790 Sep, [facility] [place] [facility] [address] [id number] [place] [address]- 7346 Jul, [facility] [place] [facility] [address] [id number], [place] [address]- 5247 Jul, [facility] [place] [facility] [address] [id number], [place] [address]- 8345 Jun, [facility] [place] [facility] [address] [id number], [place] [address]- 0405 Jun, [facility] [address] [id number] [place] [address]- 4107 Jun, [facility] [place] [facility] [address] [id number] [place] [address]- 1648 May, [facility] [place] [facility] [address] [id number] [place] [address]- 6636 May, [facility] [place] [facility] [address] [id number] [place] [address]- 0273 Apr, [facility] [place] [facility] [address] [id number] [place] [address]- 9200 Apr, [facility] [place] [facility] [address] [id number] [place] [address]- 0590 Apr, [facility] [address] [id number] [place] [address]- 8842 Apr, [facility] [place] [facility] [address] [id number] [place] [address]- 5247 Apr, [facility] [place] [facility] [address] [id number] [place] [address]- 1847 Apr, [facility] [place] [facility] [address] [id number] [place] [address]- 9728 March, [facility] [place] [facility] [address] [id number] [place] [address]- 8452 29 Feb, 2013 [facility] [place] [facility] [address] [id number] [place] [address]- 9577 Feb, [facility] [place] [facility] [address] [id number] [place] [address]- 9381 Feb, [facility] [place] [facility] [address] [id number] [place] [address]- 4601 Feb, [facility] [place] [facility] [address] [id number] [place] [address]- 9468 Feb, [facility] [place] [facility] [address] [id number] [place] [address]- 3283 28 Jan, 2013 [facility] [address] [id number] [place] [address]- 2941 Jan, [facility] [place] [facility] [address] [id number] [place] [address]- 2546 Jan, [facility] [place] [facility] [address] [id number] [place] [address]- 2921 Dec, [facility] [place] [facility] [address] [id number] [place] [address]- 3839 18 Dec, 2012 [facility] [place] [facility] [address] [id number] [place] [address]- 4398 15 Dec, 2012 [facility] [place] [facility] [address] [id number] [place] [address]- 6391 Dec, [facility] [place] [facility] [address] [id number] [place] [address]- 3465 Dec, [facility] [place] [facility] [address] [id number] [place] [address]- 0745 Nov, [facility] [place] [facility] [address] [id number] [place] [address]- 3165 Nov, [facility] [place] [facility] [address] [id number] [place] [address]- 0675 Oct, [facility] [place] [facility] [address] [id number] [place] [address]- 2546 Oct, [facility] [place] [facility] [address] [id number] [place] [address]- 2547 Oct, [facility] [place] [facility] [address] [id number] [place] [address]- 2546 Oct, [facility] [place] [facility] [address] [id number] [place] [address]- 2549 Sep, [facility] [place] [facility] [address] [id number] [place] [address]- 7836 Sep, [facility] [place] [facility] [address] [id number] [place] [address]- 0436 Sep, [facility] [place] [facility] [address] [id number] [place] [address]- 8816 Sep, [facility] [place] [facility] [address] [id number] [place] [address]- 9456 Aug, [facility] [place] [facility] [address] [id number] [place] [address]- 9139 Aug, [facility] [place] [facility] [address] [id number] [place] [address]- 5771 Aug, [facility] [place] [facility] [address] [id number] [place] 3528 Aug, [facility] [place] [facility] [address] [id number] [place] [address]- 8738 Aug, [facility] [place] [facility] [address] [id number] [place] [address]- 5852 Aug, [facility] [place] [facility] [address] [id number] [place] 1563 Aug, [facility] [place] [facility] [address] [id number] [place] [address]- 4821 Jun, [facility] [place] [facility] [address] [id number] [place] [address]- 9390 Jun, [facility] [place] [facility] [address] [id number] [place] [address]- 3321 May, [facility] [place] [facility] [address] [id number] [place] [address]- 1620 May, [facility] [place] [facility] [address] [id number] [place] [address]- 0257 May, [facility] [place] [facility] [address] [id number] [place] [address]- 4457 May, [facility] [place] [facility] [address] [id number] [place] [address]- 2546 May, [facility] [address] [id number] [place] [address]- 1446 May, [facility] [address] [id number] [place] [id number] Apr, [facility] [address] [id number] [place] [address] Apr, [facility] [place] [facility] [address] [id number] [place] [address] Feb, [facility] [address] [id number] [place] [address] Jan, [facility] [address] [id number] [place] [address] Jan, [facility] [address] [id number] [place] [address] Jan, [facility] [address] [id number] [place] [address] Jan, [facility] [address] [id number] [place] [address] Jan, [facility] [address] [id number] [place] [address] Jan, [facility] [place] [facility] [address] [id number] [place] [address] Jan, [facility] [place] [facility] [address] [id number] [place] [address] Jan, [facility] [place] [facility] [address] [id number] [place] [address] Dec, [facility] [place] [facility] [address] [id number] [place] [address] Sep, [facility] [place] [facility] [address] [id number] [place] [address] Aug, [facility] [address] [facility] [id number] [address] March, [facility] [address] [id number] [address] Oct, [facility] [address] [facility] [id number] [address] Oct, [facility] [address] [id number] [address] Oct, [facility] [address] [id number] [address] Aug, [facility] [address] [id number] [address] Aug, [facility] [address] [id number] [address] Oct, IMMUNIZATIONS No Known Immunizations SOCIAL HISTORY Never Assessed REASON FOR VISIT Medication question PLAN OF CARE VITAL SIGNS MEDICATIONS Medication Instructions Dosage Frequency Start Date End Date Duration Status Viibryd 10 mg Orally Once a day 1 tablet with food 24h Jan, 30 day(s) Active RESULTS No Results PROCEDURES No Known [...]
[2019-03-06] MEDS ORDERED: LIDOCAINE 1% INJ 20 ML 20 ML VIAL INJ ONE (04:45)
[2019-03-06] MEDS ORDERED: cefTRIAXone 1,000 MG/2.86 ml vial (IM ONLY) IM ONE (04:45)
--- NOTE | 2019-03-06 04:48 | ED General ---
General Chief Complaint: Cough/Cold/Flu Symptoms Stated Complaint: RUNNY EYES,FLUID IN EARS,CAN'T SWOLLOW,BACK PAIN Nursing Triage Note: PT AMB TO ROOM #10 W/O DIFFFICULTY. A&OX4. C/O COUGH, CONGESTION, RUNNY NOSE, BACK PAIN AND FEVER THAT BEGAN UPON RISE ON 03-05-19. REPORTS PAIN WHILE SWALLOWING. REPORTS TO TAKING TYLENOL AND DAYQUIL FOR SYMTPOMS WITH NO RELIEF. Nursing Sepsis Screen: No Definite Risk Source of Information: Patient Exam Limitations: No Limitations History of Present Illness Date Seen by Provider: Mar 06, 2019 Time Seen by Provider: 03:48 Initial Comments This 53-year-old woman presents to the emergency room with acute flulike symptoms. She has cough, congestion, runny nose, very sore throat, aching back , and fever. Symptoms just started within the last 24 hours. She has been taking Tylenol, NyQuil, and DayQuil but is still feeling poorly. Allergies and Home Medications Allergies Coded Allergies: niacin (Verified Allergy, Mild, rash, 03/17/17) Home Medications Amoxicillin 500 Mg Capsule, 1,000 MG PO BID Prescribed by: LEE ANN GAMBINO on 03/06/19 0450 Ascorbic Acid 500 Mg Capsule.er, 500 MG PO DAILY, (Reported) Aspirin 325 Mg Tablet, 325 MG PO DAILY, (Reported) Cinnamon Bark 500 Mg Capsule, 500 MG PO DAILY, (Reported) Diazepam 5 Mg Tablet, 5 MG PO BID PRN for ANXIETY Prescribed by: CATALINA RIVERS on 05/20/18 1021 Hydrochlorothiazide 12.5 Mg Cap, 25 MG PO DAILY, (Reported) Metformin HCl 500 Mg Tablet, 500 MG PO BID, (Reported) Omeprazole 20 Mg Capsule.dr, 20 MG PO DAILY, (Reported) Patient Home Medication List Home Medication List Reviewed: Yes Review of Systems Review of Systems Constitutional: see HPI EENTM: see HPI Respiratory: see HPI Cardiovascular: no symptoms reported Gastrointestinal: no symptoms reported Genitourinary: no symptoms reported : No Musculoskeletal: see HPI Skin: no symptoms reported Psychiatric/Neurological: No Symptoms Reported Hematologic/Lymphatic: No Symptoms Reported Immunological/Allergic: no symptoms reported Past Jrtbkwb-Vmrzyx-Nxnogt Hx Past Med/Social Hx: Reviewed Nursing Past Med/Soc Hx Patient Social History Alcohol Use: Denies Use Recreational Drug Use: No Smoking Status: Current Everyday Smoker Type Used: Cigarettes, Smokeless Tobacco Former Smoker, Quit: March 27, 2018 2nd Hand Smoke Exposure: Yes Recent Foreign Travel: No Contact w/Someone Who Travel: No Recent Infectious Disease Expo: No Recent Hopitalizations: No Immunizations Up To Date Tetanus Booster (TDap): Unknown Date of Influenza Vaccine: Dec 28, 2012 Seasonal Allergies Seasonal Allergies: No Past Medical History Surgeries: Yes (R CARPAL TUNNEL, LEFT KNEE) Cardiac, Section, Hysterectomy, Neurological, Orthopedic Respiratory: No Pneumonia Currently Using CPAP: No Currently Using BIPAP: No Cardiac: Yes Chronic Edema/Swelling, High Cholesterol, Hypertension, Palpitations Neurological: No Reproductive Disorders: No 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, 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 Sexually Transmitted Disease: No Genitourinary: No Gastrointestinal: Yes (morbid obesity, BMI 48.8) Gastroesophageal Reflux Musculoskeletal: Yes Degenerate Disk Disease, Arthritis, Chronic Back Pain Endocrine: Yes Diabetes, Non-Insulin dep HEENT: No Loss of Vision: Denies Hearing Impairment: Denies Cancer: No Psychosocial: Yes Anxiety, Violent Behavior Integumentary: No Blood Disorders: No Family Medical History Cataracts 19 FATHER Diabetes mellitus 19 FATHER 19 MOTHER FH: congestive heart failure 19 MOTHER Myocardial infarction 19 FATHER Psychiatric condition G8 SISTER Physical Exam Vital Signs Vital Signs - First Documented Capillary Refill : Less Than 3 Seconds Height, Weight, BMI Height: 4'11.00" Weight: 171lbs. 6.4oz. 77.187402ba; 48.8 BMI Method:Stated General Appearance: No Apparent Distress, WD/WN HEENT: PERRL/EOMI, Pharyngeal Erythema, Tonsillar Enlargement Neck: Normal Inspection Respiratory: Lungs Clear, Normal Breath Sounds, No Accessory Muscle Use, No Respiratory Distress Cardiovascular: Regular Rate, Rhythm, No Edema, No Murmur Gastrointestinal: Soft Progress/Results/Core Measures Suspected Sepsis Recent Fever Within 48 Hours: Yes Infection Criteria Present: Suspected New Infection New/Unexplained Altered Menta: No Sepsis Screen: No Definite Risk SIRS Temperature:101.7 Pulse: 75 Respiratory Rate: 16 Blood Pressure 127 /77 Mean: 94 Results/Orders Lab Results Laboratory Tests Test 03/06/19 03:54 Range/Units Group A Streptococcus Screen POSITIVE H NEGATIVE Micro Results Microbiology 03/06/19 Influenza Types A,B Antigen (ZEYNEP) - Final, Complete My Orders Orders - LEE ANN CARVALHO MD Influenza A And B Antigens (03/06/19 03:48) Rapid Strep A Screen (03/06/19 03:56) Ceftriaxone For Im Use (Rocephin For Im (03/06/19 04:45) Lidocaine 1% Inj 20 Ml (Xylocaine 1% Inj (03/06/19 04:45) Medications Given in ED Current Medications Medications Dose Ordered Sig/Walter Route Start Time Stop Time Status Last Admin Dose Admin Ceftriaxone Sodium 1,000 mg ONCE ONCE IM 03/06/19 04:45 03/06/19 04:46 DC 03/06/19 04:44 1,000 MG Lidocaine HCl 2.1 ml ONCE ONCE INJ 03/06/19 04:45 03/06/19 04:46 DC 03/06/19 04:44 2.1 ML Vital Signs/I&O 03/06/19 03/06/19 03/06/19 03:50 03:50 04:57 Temp 101.7 101.7 Pulse 75 77 Resp 16 16 B/P (MAP) 127/77 (94) 120/95 (103) Pulse Ox 98 99 O2 Delivery Room Air Room Air Room Air Capillary Refill : Less Than 3 Seconds Blood Pressure Mean: 94 Progress Note : Progress Note Influenza screen was negative. Rapid strep was positive. Patient was offered a Rocephin injection to expedite treatment. She accepted the Rocephin injection as she wanted to get better soon as possible. Work note was provided. Departure Impression Primary Impression: Strep pharyngitis Disposition: 01 HOME, SELF-CARE Condition: Improved Departure-Patient Inst. Decision time for Depature: 03:45 Referrals: [facility] (PCP) Primary Care Physician AGUILAR DUBOIS APRN (Family) Primary Care Physician Patient Instructions: Strep Throat (DC) Add. Discharge Instructions: Complete the entire course of your antibiotic as prescribed. Disposed of or sanitize your toothbrush and any other oral instruments on day 4 or 5 of treatment to prevent reinfection. Drink plenty of clear liquids. For pain or fever or you may take ibuprofen up to 600 mg every 6 hours as needed and/or Tylenol (acetaminophen) up to 1000 mg every 6 hours. Return to care or contact your Dr. if you have any other concerns or worsening of your condition. All discharge instructions reviewed with patient and/or family. Voiced understanding. Scripts Amoxicillin (Amoxicillin) 500 Mg Capsule 1000 MG PO BID, #28 CAP Prov: LEE ANN CARVALHO MD 03/06/19 Work/School Note: Work Release Form Date Seen in the Emergency Department: Mar 06, 2019 Return to Work: Mar 07, 2019 Restrictions: Return-No Fever (24hrs) LEE ANN CARVALHO MD Mar 06, 2019 04:48
[2019-03-06] MEDS ORDERED: AMOX500C2 PO (04:50)
[2019-03-06 04:57] VITALS: BP 120/95
== END 2019-03-06 04:57 | disposition home or self-care (01) ==
LOC: EDUNIT# 03:39 → ER 03:43
DX: J02.0 Streptococcal pharyngitis (principal); G56.01 Carpal tunnel syndrome, right upper limb; E78.00 Pure hypercholesterolemia, unspecified; I10 Essential (primary) hypertension; K21.9 Gastro-esophageal reflux disease without esophagitis; E11.9 Type 2 diabetes mellitus without complications; F41.9 Anxiety disorder, unspecified; E66.01 Morbid (severe) obesity due to excess calories; Z68.42 Body mass index [BMI] 45.0-49.9, adult; Z87.01 Personal history of pneumonia (recurrent); Z88.8 Allergy status to other drugs, medicaments and biological substances; Z82.49 Family history of ischemic heart disease and other diseases of the circulatory system; Z79.82 Long term (current) use of aspirin; Z79.84 Long term (current) use of oral hypoglycemic drugs; Z87.891 Personal history of nicotine dependence; Z98.890 Other specified postprocedural states; Z90.710 Acquired absence of both cervix and uterus
CPT/HCPCS: 87430; 87804

== ENCOUNTER 2019-08-05 12:27 | Emergency (ER) | payer OTHER ==
[~2019-08-05] VITALS: Ht 149.8 cm; Wt 63.0 kg
[~2019-08-05 12:27] MED LIST changes: +AMOX500C2 PO
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
[2019-08-05] MEDS ORDERED: KETOROLAC 60 MG/2 ML VIAL IM ONE (14:15)
[2019-08-05 14:30] VITALS: BP 107/72
== END 2019-08-05 14:30 | disposition home or self-care (01) ==
LOC: EDUNIT# 12:27 → ER 12:28
DX: S13.4XXA Sprain of ligaments of cervical spine, initial encounter (principal); I10 Essential (primary) hypertension; E78.00 Pure hypercholesterolemia, unspecified; E66.01 Morbid (severe) obesity due to excess calories; K21.9 Gastro-esophageal reflux disease without esophagitis; E11.9 Type 2 diabetes mellitus without complications; F41.9 Anxiety disorder, unspecified; F17.210 Nicotine dependence, cigarettes, uncomplicated; Z87.01 Personal history of pneumonia (recurrent); Z88.8 Allergy status to other drugs, medicaments and biological substances; Z79.82 Long term (current) use of aspirin; Z79.84 Long term (current) use of oral hypoglycemic drugs; Z90.710 Acquired absence of both cervix and uterus; Z68.42 Body mass index [BMI] 45.0-49.9, adult; Z82.49 Family history of ischemic heart disease and other diseases of the circulatory system; W22.8XXA Striking against or struck by other objects, initial encounter
CPT/HCPCS: 70450; 72125

== ENCOUNTER → 2020-05-15 | Outpatient (CLI) | payer OTHER ==
--- NOTE | 2020-05-15 12:49 | Diagnostic Imaging Report ---
INDICATION: Prior history of palpable lump. Patient denies lump at this time. Patient is asymptomatic. Correlation is made with prior mammograms from 12/06/2017 and 07/25/2013. 2-D and 3-D bilateral diagnostic mammography was performed with CAD. Both breasts remain heterogeneously dense, limiting the sensitivity of mammography. No mass or malignant-appearing microcalcifications are seen. Occasional benign calcification are noted. Axillae are unremarkable. IMPRESSION: BI-RADS Category 2. No mammographic features suspicious for malignancy are identified. Dictated by: Dictated on workstation # [id number]
== END ==
LOC: RAD 11:54
PROVIDERS: ATTEND Family Medicine
DX: N63.20 Unspecified lump in the left breast, unspecified quadrant (principal)
CPT/HCPCS: 77066; G0279; 77062